=== PATIENT | male | born 1975 | race Caucasian/White ===

== ENCOUNTER → 2018-05-27 17:00 | Outpatient (CLI) | payer OTHER, SELFPAY ==
[2018-05-27 18:29] LABS: Add Manual Diff / Slide Review NO; Basophils Percent Auto 0.7 % (0-2); Eosinophils Percent Auto 10.6 % (2-4); Hematocrit 48.9 % (41-53); Hemoglobin 16.3 g/dL (13.5-17.5); Lymphocytes Percent Auto 34.9 % (25-40); Mean Corpuscular HGB Conc 33.3 % (30-36); Mean Corpuscular Volume 90.1 fL (80-100); Monocytes Percent Auto 7.1 % (3-14); Neutrophils Absolute Auto 2900 /uL (3000-5900); Neutrophils Percent Auto 46.7 % (50-75); Platelet Count 208 X10^3/uL (150-400); Red Blood Cell Count 5.42 X10^6/uL (4.5-5.9); Red Cell Distribution Width 12.5 % (11.6-14.8); White Blood Cell Count 6.1 X10^3/uL (4.5-11.0)
[2018-05-27 18:57] LABS: Erythrocyte Sedimentation Rate 1 MM/HR (0-15)
[2018-05-27 19:16] LABS: C-Reactive Protein Quant < 0.5 mg/dL (<1.0)
== END ==
PROVIDERS: Visit Provider Allergy & Immunology
DX: T78.3XXA Angioneurotic edema, initial encounter (principal)
CPT/HCPCS: 36415; 83520; 85025; 85651; 86140; 86160; 86161

== ENCOUNTER → 2020-09-02 08:57 | Outpatient (CLI) | payer OTHER, SELFPAY ==
--- NOTE | 2020-09-02 08:58 | DI.RAD.S_ITS ---
PROCEDURE: XR WRIST LT MIN 3V INDICATIONS: L wrist pain and swelling post trauma 1 wk ago TECHNIQUE: 3 views of the wrist were acquired. COMPARISON: None. FINDINGS: Bones: Surgical hardware is seen within dorsal aspect of triquetrum, suggest clinical correlation. There is possible fracture of the hardware within the triquetrum. Radial lucency and sclerotic changes are noted within distal portion of scaphoid, a nondisplaced fracture cannot be excluded. No other fracture or dislocation. No suspicious bony lesions. Scaphoid view: No evidence of avascular necrosis is seen. Soft tissues: No suspicious soft tissue calcifications. IMPRESSION: 1. Finding is concerning for age indeterminate distal scaphoid fracture. Clinical correlation for focal pain in this region is recommended. No evidence of avascular necrosis. 2. Postsurgical changes noted involving medial and dorsal aspect of triquetrum with possible fractured hardware within triquetrum suggest clinical correlation. Dictated by: Casey Barry M.D. on 09/02/2020 at 9:26 Approved by: Casey Barry M.D. on 09/02/2020 at 9:29
== END ==
PROVIDERS: Referring Provider Nurse Practitioner; Visit Provider Nurse Practitioner
DX: M25.532 Pain in left wrist (principal)
CPT/HCPCS: 73110

== ENCOUNTER → 2020-09-08 17:47 | Outpatient (CLI) | payer OTHER, SELFPAY ==
--- NOTE | 2020-09-08 17:49 | DI.MRI.S_ITS ---
PROCEDURE: MR WRIST LT WO CON INDICATIONS: INJURIES OF LEFT WRIST AND HAND TECHNIQUE: Noncontrast coronal proton density fast spin echo and T2 fast spin echo with fat saturation; coronal STIR, coronal 3-D gradient echo, axial T1 spin echo and T2 fast spin echo with fat saturation, sagittal T1 spin echo through the wrist. COMPARISON: [facility], CR, XR WRIST LT MIN 3V, 09/02/2020, 10:00. FINDINGS: Image quality: Excellent. Bones and cartilage: Postsurgical changes are seen at the dorsal triquetrum with associated metallic artifact that compromises evaluation of adjacent structures. No acute trabecular bone injury is seen. Degenerative cystic changes are seen throughout the carpal bones involving the scaphoid, lunate, capitarte, and trapezoid bones. There are subchondral cystic changes in the distal ulna with mild subchondral edema. Mild degenerative changes are seen at the distal radioulnar joint. Neutral ulnar variance is seen. Small joint effusions are seen throughout the wrist that are more prominent within the midcarpal and distal radioulnar joints. Carpal ligaments: The scapholunate and lunotriquetral ligaments appear intact. In the absence of intra-articular contrast, the extrinsic carpal ligaments are not well identified. Triangular fibrocartilage complex: There is a large defect in the central triangle fibrocartilage disc. The dorsal and volar radioulnar ligaments remain in continuity. Mildly increased signal is seen at the ulnar foveal attachment of the triangular fibrocartilage without a discrete tear in that location. Tendons and soft tissues: The carpal tunnel structures appear normal, including the median nerve. The ulnar nerve appears normal within Guyon's canal. There is mild extensor carpi ulnaris tendinosis. The distal portion of the tendon is obscured by adjacent metallic artifact. There is also mild tendinosis of the extensor pollicis brevis and abductor pollicis longus tendons in the 1st extensor compartment. A small amount of fluid is seen extending along the extensor tendon sheaths in the 2nd, 3rd, and 4th extensor compartments, which may indicate mild tenosynovitis. A small ganglion cyst is seen at the radial volar aspect of the wrist measuring 8 x 2 x 7 mm. IMPRESSION: 1. Large defect of the central triangular fibrocartilage disc. The dorsal and volar radioulnar ligaments are intact. 2. Subchondral cystic changes and edema in the distal radius may be related to degenerative changes and/or a prior impaction injury. Distal radioulnar joint degenerative changes and a small distal radioulnar joint effusion are noted. 3. Mild tenosynovitis is seen involving the 2nd, 3rd, and 4th extensor compartment tendons at the level of the distal carpal row. There is mild tendinosis of the extensor carpi ulnaris tendon and the extensor pollicis brevis and abductor pollicis longus tendons. 4. Postsurgical changes at the dorsal triquetrum with metallic artifact that obscures adjacent structures. No acute trabecular bone injury. Dictated by: Joe Cote M.D. on 09/09/2020 at 9:08 Approved by: Joe Cote M.D. on 09/09/2020 at 9:09
== END ==
PROVIDERS: Referring Provider Orthopaedic Surgery; Visit Provider Orthopaedic Surgery
DX: S69.82XA Other specified injuries of left wrist, hand and finger(s), initial encounter (principal); M65.832 Other synovitis and tenosynovitis, left forearm; M25.432 Effusion, left wrist; X58.XXXA Exposure to other specified factors, initial encounter
CPT/HCPCS: 73221

== ENCOUNTER → 2021-07-12 08:42 | Outpatient (CLI) | payer OTHER, SELFPAY ==
[2021-07-12 09:09] LABS: COVID19 -Nasal RAPID Negative (Negative)
== END ==
PROVIDERS: Visit Provider Physician Assistant
DX: R50.9 Fever, unspecified (principal)
CPT/HCPCS: 87635

== ENCOUNTER → 2021-07-12 09:08 | Outpatient (CLI) | payer OTHER, SELFPAY ==
--- NOTE | 2021-07-12 09:10 | DI.RAD.S_ITS ---
PROCEDURE: XR WRIST LT MIN 3V INDICATIONS: r/o osteomyelitis, hx of surgery 2mo ago, recent infection TECHNIQUE: 3 views of the wrist were acquired. COMPARISON: [facility], CR, XR WRIST LT MIN 3V, 09/02/2020, 10:00. FINDINGS: Bones: No fractures or dislocations. Suture anchor in the triquetrum is stable. Postsurgical changes compatible with distal left ulnar osteotomy. No osseous erosive changes. No periosteal reaction. No suspicious bony lesions. Soft tissues: No suspicious soft tissue calcifications. IMPRESSION: No fabiana evidence of osteomyelitis. Plain film radiographs can be insensitive to osteomyelitis during the initial 15 days of the disease process. If there is clinical concern for osteomyelitis, then three-phase nuclear medicine bone scan or MRI should be considered for further evaluation. Dictated by: Mary Aragon MD, PhD on 07/12/2021 at 9:24 Approved by: Mary Aragon MD, PhD on 07/12/2021 at 9:28
== END ==
PROVIDERS: Referring Provider Physician Assistant; Visit Provider Physician Assistant
DX: M25.532 Pain in left wrist (principal); R50.9 Fever, unspecified
CPT/HCPCS: 73110; 87635

== ENCOUNTER → 2021-07-13 15:56 | Outpatient (CLI) | payer OTHER, SELFPAY ==
[2021-07-13 18:05] LABS: Add Manual Diff / Slide Review NO; Basophils Absolute Auto 0 /uL (0-100); Basophils Percent Auto 0.4 % (0-2); Eosinophils Absolute Auto 700 /uL (0-450); Eosinophils Percent Auto 10.7 % (2-4); Hematocrit 46.6 % (41-53); Hemoglobin 15.8 g/dL (13.5-17.5); Lymphocytes Absolute Auto 700 /uL (1100-4500); Lymphocytes Percent Auto 10.5 % (25-40); Mean Corpuscular HGB Conc 33.8 % (30-36); Mean Corpuscular Hemoglobin 29.8 PG (26-34); Mean Corpuscular Volume 88.2 fL (80-100); Monocytes Absolute Auto 500 /uL (0-900); Monocytes Percent Auto 7.2 % (3-14); Neutrophils Absolute Auto 4900 /uL (1500-7000); Neutrophils Percent Auto 71.2 % (50-75); Platelet Count 189 X10^3/uL (150-400); Red Blood Cell Count 5.28 X10^6/uL (4.5-5.9); Red Cell Distribution Width 12.8 % (11.6-14.8); White Blood Cell Count 6.9 X10^3/uL (4.5-11.0)
[2021-07-13 18:44] LABS: C-Reactive Protein Quant 1.8 mg/dL (<1.0)
[2021-07-13 19:44] LABS: Erythrocyte Sedimentation Rate 7 MM/HR (0-15)
== END ==
PROVIDERS: Referring Provider Orthopaedic Surgery Hand Surgery; Visit Provider Orthopaedic Surgery Hand Surgery
DX: L08.9 Local infection of the skin and subcutaneous tissue, unspecified (principal); M19.239 Secondary osteoarthritis, unspecified wrist
CPT/HCPCS: 36415; 85025; 85651; 86140

== ENCOUNTER 2024-01-10 07:30 | Outpatient (RCR) | payer OTHER, SELFPAY ==
--- NOTE | 2023-09-27 19:01 | PT.OIE ---
Current Diagnoses Pain in right shoulder (09/27/23) Other specified joint disorders, right shoulder (09/27/23) Past Medical History (Last Reviewed 07/12/21 @ 09:45 by Yana Campo PA-C) No significant medical problems Visit Care Team Role Provider Type Doctor MD Bita Family Provider Non-Staff Specialty: Medical Address: Phone: Fax: Email: [place] DO Attending Provider Non-Staff Primary Care Provider Referring Provider Specialty: Family Practice Address: [facility], [facility], [place], [address] Email: Physical Therapy Initial Evaluation PT-OP-A Visit Information Start: 09/26/23 16:19 Freq: Status: Active Protocol: Document 09/27/23 07:29 NM (Rec: 09/27/23 18:19 NM [id number]) Out-Patient Physical Therapy Visit Information Visit Information Visit Type Initial Evaluation Visit Start Time 07:30 Visit Stop Time 08:15 Visit Number 1 Evaluation Information Evaluation Date 09/27/23 PT-OP-B Current Condition Start: 09/26/23 16:19 Freq: Status: Active Protocol: Document 09/27/23 07:29 NM (Rec: 09/27/23 08:17 NM [id number]) Current Condition History of Current Condition Onset Date 3-4 months ago Current Complaints pain with throwing, resting pain History of Current Condition Pt presents with R shoulder pain beginning without known NOE several months ago. He currently had dx of impingement, likely from overuse. Recently received cortisone injection 3 weeks ago and is on anti- inflammatories, which helps. 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 Reports pain is most noticeable when lifting, driving. Has hx of R rotator cuff repair 20 years ago; states this feels the same. No MRI, but did an x-ray without conclusive results. Trying conservative treatment. Pt lifts weights every day but has decreased (previously power lifting, body weight lifting). Hx of ache, sharp pain (wide fuel cell binder), overhead reaching (worse if loaded), sleeping when across chest; reports no changes in mobility and minimal changes in strength. Worse with throwing, overhead pushing (pull ups are ok). 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) Functional Limitations- Recreation/ limitations in throwing, Hobbies lifting weights, exercising; no mountain biking due to pain Functional Limitations- Other pain with sleeping PT-OP-C Subjective Start: 09/26/23 16:19 Freq: Status: Active Protocol: Document 09/27/23 07:29 NM (Rec: 09/27/23 08:17 NM [id number]) OP-PT Subjective Patient Comments Patient Comments see hx above for pt report Patient Questionnaires Quick Dash- Upper Extremity Quick Dash UE Score 18.18% OP-PT Pain Assessment Pain Assessment Grid Paper Pain Assessment Grid Completed Yes Location R shoulder Pain Location Details posterior shoulder, anterior near coracoid/biceps Intensity 1 Scale Used Numeric (0 - 10) Description Aching,Sharp Description- Other worse 7/10 Frequency Occasional Pain Duration during activity (sharp) Radiating Location none Pain Aggravating Factors Exercise,Lifting Other Pain Aggravating Factors throwing, push ups Pain Alleviating Factors Cold,Medication Other Pain Alleviating Factors cortisone shot, anti- flammatories Home Pain Medication Use Pain Medications Used Yes: ibuprofen Pain Behaviors Pain Behaviors Guarding,Holding Area PT-OP-E Functional Tests Start: 09/26/23 16:19 Freq: Status: Active Protocol: Document 09/27/23 07:29 NM (Rec: 09/27/23 08:17 NM [id number]) Functional Tests Apley's Scratch Test Action 1- Left post cuff Action 1- Right post cuff, min discomfort Action 2- Left T5 Action 2- Right T4, min discomfort (1/10) Action 3- Left T7 Action 3- Right T12 (most provocative, 3/10) PT-OP-F Manual Assessment Start: 09/26/23 16:19 Freq: Status: Active Protocol: Document 09/27/23 07:29 NM (Rec: 09/27/23 18:19 NM [id number]) Manual Assessments Soft Tissue Assessment Soft Tissue Mobility Assessment Increased tone of R upper trapezius, levator scapula, R cervical spine paraspinals. Restrictions of posterior cuff muscles, pectorals Joint Mobility Assessment Joint Mobility Assessment Anterior position R humeral head. Full bilateral shoulder AROM into flexion and abduction, IR. Limited shoulder ER AROM, flora with increased abduction. B scapulae 2 from spine. Delayed R scapulohumeral rhythm with arm elevation. Decreased R AC joint space, elevated R 1st rib PT-OP-H Neuro Start: 09/26/23 16:19 Freq: Status: Active Protocol: Document 09/27/23 07:29 NM (Rec: 09/27/23 18:19 NM [id number]) Sensation Evaluation Gross Sensation Gross Sensation WNL Comments Summary Comments BUE equally intact to light touch sensation PT-OP-J Posture/Palpation/Skin Start: 09/26/23 16:19 Freq: Status: Active Protocol: Document 09/27/23 07:29 NM (Rec: 09/27/23 18:19 NM [id number]) Posture Evaluation Position Standing Evaluation View posterior, lateral Head/C-Spine Posture Forward Head T-Spine Posture Neutral L-Spine Posture Decreased Lordosis Shoulder Posture (L) Rounded,(R) Rounded Scapula Posture (L) Protracted,(R) Protracted, (R) Elevated Arm Posture (L) Internally Rotated,(R) Internally Rotated Pelvis Posture Neutral Weight Distribution Balanced Hip Posture (L) Neutral,(R) Neutral Knee Posture (L) Genu Valgus,(R) Genu Valgus Patellar Posture (L) Superior,(R) Superior Ankle/Foot Posture (L) Neutral,(R) Neutral Palpation Assessment Location cervical spine Palpation Location paraspinals, upper trap, levator scapula Palpation Findings Soft Tissue Tightness,Spasm Palpation Details Spasm R upper trapezius, levator scapula, paraspinals R shoulder Palpation Location long head biceps, rotator cuff insertion, posterior cuff, pectoral Palpation Findings Soft Tissue Tightness, Tenderness Palpation Details Tenderness along long head biceps, rotator cuff insertion . Soft tissue tightness of rotator cuff muscles, pectorals PT-OP-K Range of Motion Start: 09/26/23 16:19 Freq: Status: Active Protocol: Document 09/27/23 07:29 NM (Rec: 09/27/23 08:17 NM [id number]) Cervical Spine Range of Motion Cervical Spine Active Degrees Testing Position Sitting Flexion 65 Extension 45 Rotation Left 80 Rotation Right 83 Lateral Flexion Left 30 Lateral Flexion Right 30 ROM Limitations Soft Tissue Tightness Comments Crepitus with lateral flexion, extension; no pain Shoulder Goniometric Range of Motion Shoulder R shoulder PROM Flexion 175 Abduction 175 External Rotation at 90 degrees 70 Abduction External Rotation at 45 degrees 65 Abduction Internal Rotation 80 Comments Min discomfort with end range ER L shoulder AROM Testing Position Sitting Flexion 165 Abduction 170 External Rotation at 90 degrees 60 Abduction External Rotation at 45 degrees 50 Abduction External Rotation at 0 degrees Abduction 40 Internal Rotation 80 R shoulder AROM Testing Position Sitting Flexion 170 Abduction 172 External Rotation at 90 degrees 70 Abduction External Rotation at 45 degrees 60 Abduction External Rotation at 0 degrees Abduction 40 Internal Rotation 80 Comments pain with 45 deg abd (08/21) PT-OP-L Special Tests Start: 09/26/23 16:19 Freq: Status: Active Protocol: Document 09/27/23 07:29 NM (Rec: 09/27/23 08:17 NM [id number]) Special Tests Cervical Spine Special Tests Distraction Test Results - Spurling's Test Test Results - Shoulder Special Tests IR/Horizontal ADD Impingement Test Results + Yergason's Biceps Test Results + Comments painful, no loss of strength Speed's Biceps Test Results + Whitt Tho Impingement Test Results + Lift-Off Rotator Cuff Test Results + Comments painful, able to perform with AROM and against minimal resistance ER lag (rotator cuff) Test Results - Empty Can Test Results + Comments Min pain but reports full can worse PT-OP-M Strength Start: 09/26/23 16:19 Freq: Status: Active Protocol: Document 09/27/23 07:29 NM (Rec: 09/27/23 08:17 NM [id number]) Scapula Strength Scapula Manual Muscle Testing Left Elevation (C4) 4+ Good+ Adduction 4+ Good+ Abduction 4+ Good+ Depression 4+ Good+ Right Elevation (C4) 4 Good Adduction 4 Good Abduction 4 Good Depression 4 Good Comments Minimal pain with resisted testing; no limits ROM Shoulder Strength Shoulder Manual Muscle Testing Left shoulder Flexion 5 Normal Extension 5 Normal Abduction (C5) 5 Normal Adduction 5 Normal External Rotation 5 Normal Internal Rotation 5 Normal Horizontal Abduction 5 Normal Horizontal Adduction 5 Normal Right shoulder Flexion 4 Good Extension 5 Normal Abduction (C5) 4+ Good+ External Rotation 4 Good Internal Rotation 4 Good Horizontal Abduction 4 Good Horizontal Adduction 4 Good Comments Moderate pain with resisted ER ; minimal pain with resisted flexion, IR, abduction Elbow/Forearm Strength Elbow and Forearm Manual Muscle Testing Left Flexion (C6) 5 Normal Extension (C7) 5 Normal Right Flexion (C6) 5 Normal Extension (C7) 5 Normal Comments No pain with resisted flexion PT-OP-T Assessment and Plan Start: 09/26/23 16:19 Freq: Status: Active Protocol: Document 09/27/23 07:29 NM (Rec: 09/27/23 08:17 NM [id number]) Physical Therapy Assessment Rehab Potential Rehabilitation Potential Good Evaluation Complexity Number of Personal Factors/Comorbidities 0 Number of Body Systems Impaired 1-2 Clinical Presentation at Evaluation Stable Impairments Impairments Activity Tolerance, Coordination,Functional Activities,Functional Mobility ,Integument,Pain,Posture,ROM, Sensation,Soft Tissue Mobility ,Strength Goals Five Impairment activity Short Term Goal (STG) Pt will report at least 30% return to prior level of activity in order to demonstrate improved QOL, activity tolerance, and pain management STG Duration 4 weeks Personal Lines Insurance Advisor Goal (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 LTG Duration 8 weeks Four Impairment strength Impairment R shoulder strength grossly 4/ 5 for ER, IR, and flexion Fdc Goal (LTG) Pt will improve R shoulder gross MMT to at least 4+/5 with pain <2/10 in order to demonstrate improved tolerance for activity, ADLs. LTG Duration 8 weeks Three Impairment periscapular strength Impairment grossly 4/5 Fdc Goal (LTG) Pt will improve periscapular strength to at least 4+/5 without compensation in order to demonstrate increased scapular control during arm elevation LTG Duration 8 weeks Two Impairment AROM Impairment Apley IR scratch test: T12 Short Term Goal (STG) Pt will improve R Apley IR scratch test AROM to at least T10 in order to demonstrate improved AROM for ADLs. STG Duration 4 weeks Personal Lines Insurance Advisor Goal (LTG) Pt will improve R Apley IR scratch test AROM to at least T8 in order to demonstrate improved AROM for ADLs, comparable to L Apley. LTG Duration 8 weeks One Impairment quickdash Impairment quickdash 18% Personal Lines Insurance Advisor Goal (LTG) Pt will decrease quickdash score by at least 9% in order to demonstrate improved function and QOL LTG Duration 8 weeks Assessment Summary Assessment Pt is a 48 y.o. male presenting with R shoulder pain beginning several months ago. Pain is worse at night, with activity (e.g. lifting, throwing). He has had significant relief after the cortisone injection. Pt has full R shoulder flexion and abduction AROM with limitations in ER AROM and PROM. Resisted R shoulder ER, flexion, abduction, and IR are painful, with resisted ER the most painful. Pt presents with forward head posture, increased tone in R cervical spine paraspinals, periscapular muscles, and pectoral muscles. He has full cervical spine with minor limitations in extension AROM with crepitus. He has decreased joint space of the R AC joint, in addition to delayed scapular movement during arm elevation. Pt is positive for special tests related to biceps tendinopathy , rotator cuff, and AC joint. Symptoms are consistent with rotator cuff pathology with involvement of long head biceps tendon and possibly the labrum. Impingement is less likely due to full AROM. Pt is currently limited in his ability to participate in recreational activities due to pain and must modify his activity at work. He has a very active job and lifestyle. He is wanting to try conservative treatment prior to referral. PT and pt discussed exam findings and plan of care. Pt would benefit from skilled PT to decrease pain symptoms, decrease soft tissue restrictions, and improve activity tolerance. Physical Therapy Plan Frequency and Duration Frequency of Treatment 2x/Week Duration of treatment (weeks) 8 Plan of Care Start Date 09/27/23 Plan of Care End Date 11/22/23 Therapeutic Interventions Therapeutic Interventions Aquatic Therapy,Coordination Training,Home Exercise Program ,Joint Mobilizations,Manual Therapy,Neuromuscular Re- education,Orthotic/Prosthetic Management,Patient/Caregiver Education,Self-Care/Home Management,Sensory Integration ,Soft Tissue Mobilization, Taping,Therapeutic Activities, Therapeutic Exercises Modalities Cold Pack/Ice Massage,Electric Stimulation,Hot Packs, Traction- Mechanical, Ultrasound,Vasopneumatic Devices Other Referrals/Consults Referrals/Consults Recommended Recommend MRI and referral to ortho depending on pt progression with conservative treatment Next Visit Focus/Plan Next Note Type Treatment Note Next Visit Plan Modalities Cervical spine STM, stretching ; prone ITYW as tolerated, shoulder STM. pec stretch
--- NOTE | 2023-09-30 16:05 | PT.OTN ---
Current Diagnoses Pain in right shoulder (09/30/23) Other specified joint disorders, right shoulder (09/30/23) Physical Therapy Treatment Note PT-OP-A Visit Information Start: 09/26/23 16:19 Freq: Status: Active Protocol: Document 09/30/23 07:25 NM (Rec: 09/30/23 07:27 NM [id number]) Out-Patient Physical Therapy Visit Information Visit Information Visit Type Treatment Note Visit Start Time 07:30 Visit Stop Time 08:15 Visit Number 2 Evaluation Information Evaluation Date 09/27/23 PT-OP-B Current Condition Start: 09/26/23 16:19 Freq: Status: Active Protocol: Document 09/27/23 07:29 NM (Rec: 09/27/23 08:17 NM [id number]) Current Condition History of Current Condition Onset Date 3-4 months ago Current Complaints pain with throwing, resting pain History of Current Condition Pt presents with R shoulder pain beginning without known NOE several months ago. He currently had dx of impingement, likely from overuse. Recently received cortisone injection 3 weeks ago and is on anti- inflammatories, which helps. 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 Reports pain is most noticeable when lifting, driving. Has hx of R rotator cuff repair 20 years ago; states this feels the same. No MRI, but did an x-ray without conclusive results. Trying conservative treatment. Pt lifts weights every day but has decreased (previously power lifting, body weight lifting). 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 Worse with throwing, overhead pushing (pull ups are ok). 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 He has been using his shoulder a lot due to moving in/out of a house. He has been doing a lot of painting, which involves overhead activity and has been aggravating. PT-OP-E Functional Tests Start: 09/26/23 16:19 Freq: Status: Active Protocol: Document 09/27/23 07:29 NM (Rec: 09/27/23 08:17 NM [id number]) Functional Tests Apley's Scratch Test Action 1- Left post cuff Action 1- Right post cuff, min discomfort Action 2- Left T5 Action 2- Right T4, min discomfort (08/21) Action 3- Left T7 Action 3- Right T12 (most provocative, 10/19) PT-OP-F Manual Assessment Start: 09/26/23 16:19 Freq: Status: Active Protocol: Document 09/27/23 07:29 NM (Rec: 09/27/23 18:19 NM [id number]) Manual Assessments Soft Tissue Assessment Soft Tissue Mobility Assessment Increased tone of R upper trapezius, levator scapula, R cervical spine paraspinals. Restrictions of posterior cuff muscles, pectorals Joint Mobility Assessment Joint Mobility Assessment Anterior position R humeral head. Full bilateral shoulder AROM into flexion and abduction, IR. Limited shoulder ER AROM, flora with increased abduction. B scapulae 2 from spine. Delayed R scapulohumeral rhythm with arm elevation. Decreased R AC joint space, elevated R 1st rib PT-OP-H Neuro Start: 09/26/23 16:19 Freq: Status: Active Protocol: Document 09/27/23 07:29 NM (Rec: 09/27/23 18:19 NM [id number]) Sensation Evaluation Gross Sensation Gross Sensation WNL Comments Summary Comments BUE equally intact to light touch sensation PT-OP-J Posture/Palpation/Skin Start: 09/26/23 16:19 Freq: Status: Active Protocol: Document 09/27/23 07:29 NM (Rec: 09/27/23 18:19 NM [id number]) Posture Evaluation Position Standing Evaluation View posterior, lateral Head/C-Spine Posture Forward Head T-Spine Posture Neutral L-Spine Posture Decreased Lordosis Shoulder Posture (L) Rounded,(R) Rounded Scapula Posture (L) Protracted,(R) Protracted, (R) Elevated Arm Posture (L) Internally Rotated,(R) Internally Rotated Pelvis Posture Neutral Weight Distribution Balanced Hip Posture (L) Neutral,(R) Neutral Knee Posture (L) Genu Valgus,(R) Genu Valgus Patellar Posture (L) Superior,(R) Superior Ankle/Foot Posture (L) Neutral,(R) Neutral Palpation Assessment Location cervical spine Palpation Location paraspinals, upper trap, levator scapula Palpation Findings Soft Tissue Tightness,Spasm Palpation Details Spasm R upper trapezius, levator scapula, paraspinals R shoulder Palpation Location long head biceps, rotator cuff insertion, posterior cuff, pectoral Palpation Findings Soft Tissue Tightness, Tenderness Palpation Details Tenderness along long head biceps, rotator cuff insertion . Soft tissue tightness of rotator cuff muscles, pectorals PT-OP-K Range of Motion Start: 09/26/23 16:19 Freq: Status: Active Protocol: Document 09/27/23 07:29 NM (Rec: 09/27/23 08:17 NM [id number]) Cervical Spine Range of Motion Cervical Spine Active Degrees Testing Position Sitting Flexion 65 Extension 45 Rotation Left 80 Rotation Right 83 Lateral Flexion Left 30 Lateral Flexion Right 30 ROM Limitations Soft Tissue Tightness Comments Crepitus with lateral flexion, extension; no pain Shoulder Goniometric Range of Motion Shoulder R shoulder PROM Flexion 175 Abduction 175 External Rotation at 90 degrees 70 Abduction External Rotation at 45 degrees 65 Abduction Internal Rotation 80 Comments Min discomfort with end range ER L shoulder AROM Testing Position Sitting Flexion 165 Abduction 170 External Rotation at 90 degrees 60 Abduction External Rotation at 45 degrees 50 Abduction External Rotation at 0 degrees Abduction 40 Internal Rotation 80 R shoulder AROM Testing Position Sitting Flexion 170 Abduction 172 External Rotation at 90 degrees 70 Abduction External Rotation at 45 degrees 60 Abduction External Rotation at 0 degrees Abduction 40 Internal Rotation 80 Comments pain with 45 deg abd (08/21) PT-OP-L Special Tests Start: 09/26/23 16:19 Freq: Status: Active Protocol: Document 09/27/23 07:29 NM (Rec: 09/27/23 08:17 NM [id number]) Special Tests Cervical Spine Special Tests Distraction Test Results - Spurling's Test Test Results - Shoulder Special Tests IR/Horizontal ADD Impingement Test Results + Yergason's Biceps Test Results + Comments painful, no loss of strength Speed's Biceps Test Results + Whitt Tho Impingement Test Results + Lift-Off Rotator Cuff Test Results + Comments painful, able to perform with AROM and against minimal resistance ER lag (rotator cuff) Test Results - Empty Can Test Results + Comments Min pain but reports full can worse PT-OP-M Strength Start: 09/26/23 16:19 Freq: Status: Active Protocol: Document 09/27/23 07:29 NM (Rec: 09/27/23 08:17 NM [id number]) Scapula Strength Scapula Manual Muscle Testing Left Elevation (C4) 4+ Good+ Adduction 4+ Good+ Abduction 4+ Good+ Depression 4+ Good+ Right Elevation (C4) 4 Good Adduction 4 Good Abduction 4 Good Depression 4 Good Comments Minimal pain with resisted testing; no limits ROM Shoulder Strength Shoulder Manual Muscle Testing Left shoulder Flexion 5 Normal Extension 5 Normal Abduction (C5) 5 Normal Adduction 5 Normal External Rotation 5 Normal Internal Rotation 5 Normal Horizontal Abduction 5 Normal Horizontal Adduction 5 Normal Right shoulder Flexion 4 Good Extension 5 Normal Abduction (C5) 4+ Good+ External Rotation 4 Good Internal Rotation 4 Good Horizontal Abduction 4 Good Horizontal Adduction 4 Good Comments Moderate pain with resisted ER ; minimal pain with resisted flexion, IR, abduction Elbow/Forearm Strength Elbow and Forearm Manual Muscle Testing Left Flexion (C6) 5 Normal Extension (C7) 5 Normal Right Flexion (C6) 5 Normal Extension (C7) 5 Normal Comments No pain with resisted flexion PT-OP-Q Treatments Start: 09/26/23 16:19 Freq: Status: Active Protocol: Document 09/30/23 07:25 NM (Rec: 09/30/23 07:27 NM [id number]) Therapeutic Exercises Supine Exercises pectoralis stretch Supine Exercise Name arm at 120 deg flex Side bilateral Equipment Used foam roller, mat on ground Reps/Minutes 1x60 Comments to improve pec length; reports good stretch thoracic extension Side bilateral Resistance AROM Equipment Used mat on floor, full foam roller Reps/Minutes 1x10 with overhead fwd flexion Prone Exercises Prone T, W Prone Exercise Name for periscapular strengthening Side bilateral Resistance AROM Equipment Used large green surinamese ball Reps/Minutes 2x10 ea Comments tactile cues initially for scap retraction; reports no pain w activity Y lift off Prone Exercise Name for lower trap activation Side bilateral Resistance AROM Equipment Used large green surinamese ball Reps/Minutes 2x10 Comments cued to depress scaps twd feet to limit UT overact; PT manual cue at R shld Sidelying Exercises sidelying shoulder external rotation Side right Resistance AROM > 2# tball Equipment Used towel btwn arm/body Reps/Minutes 1x10 ea Comments reports some LH bicep irritation so discontinued with 2# tball sidelying flexion Sidelying Exercise Name to 90 deg Side right Equipment Used AROM Reps/Minutes 1x10 Comments PT facilitating at scap for control; cued for slower motion, no UT use Sitting Exercises cervical spine stretches Sitting Exercise Name UT, LS Side bilateral Equipment Used pt holding table to tension, no overpressure with hand for UT Reps/Minutes 2x30 Comments reports good stretch, muscles tight Other Exercises self soft tissue mobilization Other Exercise Name UT, LS, rotator cuff Side right Equipment Used racquetball Reps/Minutes 2 min total Comments reports feels good Manual Therapy Treatment Soft Tissue Mobilization chest Body Location R pectorals, scalenes Mobilization Type Rolling,Sustained Pressure Intensity/Depth Moderate Body Position Sidelying Comments R pectoral tightness along coracoid and at insertion of humerus, performing with posterior scap setting. No tenderness cervical spine Body Location paraspinals, UT, LS Mobilization Type Oscillations,Rolling,Sustained Pressure,Trigger Point Release Intensity/Depth Moderate Body Position Hooklying Comments R>L paraspinal muscle restriction. Most restricted at UT and LS, trigger point at LS. Performed gentle trigger point release. Pt reports improvement in muslce relaxation after STM. Educated on STM using lacrosse ball, massage gun as HEP prn Joint Mobilizations scapulothoracic Direction upwd/dwd rotation Grade II Body Position Sidelying Reps/Duration 1x10 ea Comments During sidelying flexion, MWM. PT facilitating at scapula for control, cued to limit R AC joint Direction post on scapular spine, ant on clavicle Grade III Body Position Sidelying Reps/Duration 1x10 ea Comments To increase joint space, pain reduction for improved overhead mobility. Monitored for pain, none reported 1st rib Joint R 1st rib Direction caudal Grade III Body Position Sidelying Reps/Duration 1x10 Comments After upper trap STM Self-Care/Home Management Treatment Education Patient Education Home Exercise Program,Joint Protection,Pain Management Other Education 4 minutes: Educated related to activity modification regarding decrease overhead movements, limit throwing with R arm. Modalities for pain relief prn flora after home modifications, heat with soft tissue mobilization. Instructed in soft tissue mobilization at chest, R shoulder, paraspinals using both lacrosse ball and massage gun (edu on gentle massage, should not be painful). HEP: prone Y, T, W, thoracic ext with foam roller, pec stretch, upper trap stretch, levator scap stretch. Educated that should not be painful, gentle stretches, stop if pain occurs (did not have any during session) PT-OP-T Assessment and Plan Start: 09/26/23 16:19 Freq: Status: Active Protocol: Document 09/30/23 07:25 NM (Rec: 09/30/23 07:27 NM [id number]) Physical Therapy Assessment Goals Five Impairment activity Short Term Goal (STG) Pt will report at least 30% return to prior level of activity in order to demonstrate improved QOL, activity tolerance, and pain management STG Duration 4 weeks [facility] Goal (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 LTG Duration 8 weeks Four Impairment strength Impairment R shoulder strength grossly 4/ 5 for ER, IR, and flexion [facility] Goal (LTG) Pt will improve R shoulder gross MMT to at least 4+/5 with pain <2/10 in order to demonstrate improved tolerance for activity, ADLs. 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 STG Duration 4 weeks [facility] Goal (LTG) Pt will improve R Apley IR scratch test AROM to at least T8 in order to demonstrate improved AROM for ADLs, comparable to L Apley. LTG Duration 8 weeks One Impairment quickdash Impairment quickdash 18% Real Estate Branch Manager Goal (LTG) Pt will decrease quickdash score by at least 9% in order to demonstrate improved function and QOL LTG Duration 8 weeks Assessment Summary Assessment Pt tolerated treatment well. Session focus on scapular mechanics, improved periscapular strengthening, and improving soft tissue restrictions of chest and cervical spine muscles. Initiated prone periscapular strengthening to decrease upper trapezius use during arm elevation, encourage lower and middle trapezius activation in addition to improved scapular movement. Pt demos improved scapular rotation, better timing of scapulo-humeral rhythm with sidelying flexion if cued for slower form and to depress scapula; PT facilitating at scapula to cue for control. Pt has increased cervical spine paraspinal soft tissue restrictions; responds well to both stretching, soft tissue mobilization and education as part of HEP. Initiated thoracic extension and pec stretching to decrease anterior humeral position, decreased forward shoulder posture. Further manual treatment to improve 1st rib mobility and AC joint space during elevation, decrease any impingement symptoms. Pt reports no symptom provocation except during weighted sidelying shoulder ER with 2# ball, so regressed to AROM. Pt would benefit from skilled PT for periscapular, gentle rotator cuff strengthening, and activity modification in order to improve pain management, increase QOL and return to PLOF. Physical Therapy Plan Frequency and Duration Frequency of Treatment 2x/Week Duration of treatment (weeks) 8 Plan of Care Start Date 09/27/23 Plan of Care End Date 11/22/23 Therapeutic Interventions Therapeutic Interventions Aquatic Therapy,Coordination Training,Home Exercise Program ,Joint Mobilizations,Manual Therapy,Neuromuscular Re- education,Orthotic/Prosthetic Management,Patient/Caregiver Education,Self-Care/Home Management,Sensory Integration ,Soft Tissue Mobilization, Taping,Therapeutic Activities, Therapeutic Exercises Modalities Cold Pack/Ice Massage,Electric Stimulation,Hot Packs, Traction- Mechanical, Ultrasound,Vasopneumatic Devices Other Referrals/Consults Referrals/Consults Recommended Recommend MRI and referral to ortho depending on pt progression with conservative treatment Next Visit Focus/Plan Next Note Type Treatment Note Next Visit Plan Review Cervical spine STM, stretching as needed; Progress prone ITYW as tolerated, pec stretch, thoracic mobility and strengthening. Lower/Middle trap activationm gentle RTC strengthening as able, scapular mechanics *be aware of bicep irritation
--- NOTE | 2023-10-04 12:22 | PT.OTN ---
Current Diagnoses Pain in right shoulder (10/04/23) Other specified joint disorders, right shoulder (10/04/23) Physical Therapy Treatment Note PT-OP-A Visit Information Start: 09/26/23 16:19 Freq: Status: Active Protocol: Document 10/04/23 07:34 NM (Rec: 10/04/23 09:01 NM [id number]) Out-Patient Physical Therapy Visit Information Visit Information Visit Type Treatment Note Visit Start Time 07:35 Visit Stop Time 08:15 Visit Number 3 Evaluation Information Evaluation Date 09/27/23 PT-OP-B Current Condition Start: 09/26/23 16:19 Freq: Status: Active Protocol: Document 09/27/23 07:29 NM (Rec: 09/27/23 08:17 NM [id number]) Current Condition History of Current Condition Onset Date 3-4 months ago Current Complaints pain with throwing, resting pain History of Current Condition Pt presents with R shoulder pain beginning without known NOE several months ago. He currently had dx of impingement, likely from overuse. Recently received cortisone injection 3 weeks ago and is on anti- inflammatories, which helps. 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 Reports pain is most noticeable when lifting, driving. Has hx of R rotator cuff repair 20 years ago; states this feels the same. No MRI, but did an x-ray without conclusive results. Trying conservative treatment. Pt lifts weights every day but has decreased (previously power lifting, body weight lifting). Hx of ache, sharp pain (wide wall cleaner), overhead reaching (worse if loaded), sleeping when across chest; reports no changes in mobility and minimal changes in strength. Worse with throwing, overhead pushing (pull ups are ok). 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 Has been lifting lots of boxes due to moving so reports sore overall . Has been compliant with HEP PT-OP-E Functional Tests Start: 09/26/23 16:19 Freq: Status: Active Protocol: Document 09/27/23 07:29 NM (Rec: 09/27/23 08:17 NM [id number]) Functional Tests Apley's Scratch Test Action 1- Left post cuff Action 1- Right post cuff, min discomfort Action 2- Left T5 Action 2- Right T4, min discomfort (1/10) Action 3- Left T7 Action 3- Right T12 (most provocative, 3/10) PT-OP-F Manual Assessment Start: 09/26/23 16:19 Freq: Status: Active Protocol: Document 09/27/23 07:29 NM (Rec: 09/27/23 18:19 NM [id number]) Manual Assessments Soft Tissue Assessment Soft Tissue Mobility Assessment Increased tone of R upper trapezius, levator scapula, R cervical spine paraspinals. Restrictions of posterior cuff muscles, pectorals Joint Mobility Assessment Joint Mobility Assessment Anterior position R humeral head. Full bilateral shoulder AROM into flexion and abduction, IR. Limited shoulder ER AROM, flora with increased abduction. B scapulae 2 from spine. Delayed R scapulohumeral rhythm with arm elevation. Decreased R AC joint space, elevated R 1st rib PT-OP-H Neuro Start: 09/26/23 16:19 Freq: Status: Active Protocol: Document 09/27/23 07:29 NM (Rec: 09/27/23 18:19 NM [id number]) Sensation Evaluation Gross Sensation Gross Sensation WNL Comments Summary Comments BUE equally intact to light touch sensation PT-OP-J Posture/Palpation/Skin Start: 09/26/23 16:19 Freq: Status: Active Protocol: Document 09/27/23 07:29 NM (Rec: 09/27/23 18:19 NM [id number]) Posture Evaluation Position Standing Evaluation View posterior, lateral Head/C-Spine Posture Forward Head T-Spine Posture Neutral L-Spine Posture Decreased Lordosis Shoulder Posture (L) Rounded,(R) Rounded Scapula Posture (L) Protracted,(R) Protracted, (R) Elevated Arm Posture (L) Internally Rotated,(R) Internally Rotated Pelvis Posture Neutral Weight Distribution Balanced Hip Posture (L) Neutral,(R) Neutral Knee Posture (L) Genu Valgus,(R) Genu Valgus Patellar Posture (L) Superior,(R) Superior Ankle/Foot Posture (L) Neutral,(R) Neutral Palpation Assessment Location cervical spine Palpation Location paraspinals, upper trap, levator scapula Palpation Findings Soft Tissue Tightness,Spasm Palpation Details Spasm R upper trapezius, levator scapula, paraspinals R shoulder Palpation Location long head biceps, rotator cuff insertion, posterior cuff, pectoral Palpation Findings Soft Tissue Tightness, Tenderness Palpation Details Tenderness along long head biceps, rotator cuff insertion . Soft tissue tightness of rotator cuff muscles, pectorals PT-OP-K Range of Motion Start: 09/26/23 16:19 Freq: Status: Active Protocol: Document 09/27/23 07:29 NM (Rec: 09/27/23 08:17 NM [id number]) Cervical Spine Range of Motion Cervical Spine Active Degrees Testing Position Sitting Flexion 65 Extension 45 Rotation Left 80 Rotation Right 83 Lateral Flexion Left 30 Lateral Flexion Right 30 ROM Limitations Soft Tissue Tightness Comments Crepitus with lateral flexion, extension; no pain Shoulder Goniometric Range of Motion Shoulder R shoulder PROM Flexion 175 Abduction 175 External Rotation at 90 degrees 70 Abduction External Rotation at 45 degrees 65 Abduction Internal Rotation 80 Comments Min discomfort with end range ER L shoulder AROM Testing Position Sitting Flexion 165 Abduction 170 External Rotation at 90 degrees 60 Abduction External Rotation at 45 degrees 50 Abduction External Rotation at 0 degrees Abduction 40 Internal Rotation 80 R shoulder AROM Testing Position Sitting Flexion 170 Abduction 172 External Rotation at 90 degrees 70 Abduction External Rotation at 45 degrees 60 Abduction External Rotation at 0 degrees Abduction 40 Internal Rotation 80 Comments pain with 45 deg abd (08/21) PT-OP-L Special Tests Start: 09/26/23 16:19 Freq: Status: Active Protocol: Document 09/27/23 07:29 NM (Rec: 09/27/23 08:17 NM [id number]) Special Tests Cervical Spine Special Tests Distraction Test Results - Spurling's Test Test Results - Shoulder Special Tests IR/Horizontal ADD Impingement Test Results + Mercedes's Biceps Test Results + Comments painful, no loss of strength Speed's Biceps Test Results + Whitt Tho Impingement Test Results + Lift-Off Rotator Cuff Test Results + Comments painful, able to perform with AROM and against minimal resistance ER lag (rotator cuff) Test Results - Empty Can Test Results + Comments Min pain but reports full can worse PT-OP-M Strength Start: 09/26/23 16:19 Freq: Status: Active Protocol: Document 09/27/23 07:29 NM (Rec: 09/27/23 08:17 NM [id number]) Scapula Strength Scapula Manual Muscle Testing Left Elevation (C4) 4+ Good+ Adduction 4+ Good+ Abduction 4+ Good+ Depression 4+ Good+ Right Elevation (C4) 4 Good Adduction 4 Good Abduction 4 Good Depression 4 Good Comments Minimal pain with resisted testing; no limits ROM Shoulder Strength Shoulder Manual Muscle Testing Left shoulder Flexion 5 Normal Extension 5 Normal Abduction (C5) 5 Normal Adduction 5 Normal External Rotation 5 Normal Internal Rotation 5 Normal Horizontal Abduction 5 Normal Horizontal Adduction 5 Normal Right shoulder Flexion 4 Good Extension 5 Normal Abduction (C5) 4+ Good+ External Rotation 4 Good Internal Rotation 4 Good Horizontal Abduction 4 Good Horizontal Adduction 4 Good Comments Moderate pain with resisted ER ; minimal pain with resisted flexion, IR, abduction Elbow/Forearm Strength Elbow and Forearm Manual Muscle Testing Left Flexion (C6) 5 Normal Extension (C7) 5 Normal Right Flexion (C6) 5 Normal Extension (C7) 5 Normal Comments No pain with resisted flexion PT-OP-Q Treatments Start: 09/26/23 16:19 Freq: Status: Active Protocol: Document 10/04/23 07:34 NM (Rec: 10/04/23 09:01 NM [id number]) Therapeutic Exercises Prone Exercises quadruped Prone Exercise Name 1. quad scap protraction, 2. push up plus (full pushup) Side bilateral Equipment Used mat on floor, PT prn tactile cue for protraction Reps/Minutes 1. 2x10, 2. 2x8 w protract Comments cued full protaction; reports no pain shldr, close wall cleaner thoracic extension Prone Exercise Name with green SB rollout > lat stretch with TS ext Side bilateral Equipment Used large green sb- cued not to go to end range Reps/Minutes 1x10 with 3 hold Comments improved extension with repetitions, reports min ant shldr pain end range Prone T, W Prone Exercise Name for periscapular strengthening Side bilateral Resistance 1# db ea hand > 2# db 2nd set W Equipment Used large green djiboutian ball Reps/Minutes 2x10 ea Comments tactile cues initially for scap retraction; reports no pain w activity Y lift off Prone Exercise Name for lower trap activation Side bilateral Resistance AROM Equipment Used large green djiboutian ball Reps/Minutes 2x12 Comments cued to depress scaps twd feet to limit UT overact; PT cue at R shldr relax Sidelying Exercises sidelying abduction Sidelying Exercise Name to 90 deg Side right Resistance AROM > 1# db Reps/Minutes 2x10 Comments PT initially facilitate at scap for control, cued slower, relax shldr sidelying shoulder external rotation Side right Resistance AROM > 1# > 2# db Equipment Used towel btwn arm/body Reps/Minutes 1x10 ea Comments reports no irritation at ant shldr, cued UT relaxation sidelying flexion Sidelying Exercise Name to 120 deg Side right Equipment Used AROM> 1# db Reps/Minutes 1x10 ea Comments PT facilitating at scap for control; cued for slower motion, no UT use Sitting Exercises cervical spine stretches Sitting Exercise Name UT, LS Side bilateral Equipment Used pt holding table to tension, no overpressure with hand for UT Reps/Minutes 2x30 Comments reports good stretch,still tight, improved ROM Manual Therapy Treatment Soft Tissue Mobilization posterior trunk Body Location lat, RTC Mobilization Type Strumming,Sustained Pressure Intensity/Depth Moderate Body Position Sidelying Comments Min tenderness of R lat, teres muscles of RTC. Palpable relaxation with STM chest Body Location R pectorals Mobilization Type Rolling,Sustained Pressure Intensity/Depth Moderate Body Position Sidelying Comments R pectoral tightness along coracoid and at insertion of humerus, performing with posterior scap setting. No tenderness reported, increased relaxation with STM cervical spine Body Location paraspinals, UT Mobilization Type Oscillations,Rolling,Sustained Pressure Intensity/Depth Moderate Body Position Sidelying Comments Continues with increased restriction at R UT and paraspinals but improved. No trigger point but still restricted, limits ROM at shoulder Joint Mobilizations R Glenohumeral Joint jt at 45-70 deg abd Direction P-A Grade III Reps/Duration 4x30 Comments for increased AROM into ER. Monitored for pain, none reported. Increased AROM restrictions due to soft tissue with increasing abduction R AC joint Direction post on scapular spine, ant on clavicle Grade III Body Position Sidelying Reps/Duration 1x10 ea Comments To increase joint space, pain reduction for improved overhead mobility. Monitored for pain, none reported. Improved anterior clavicle mobility since last session 1st rib Joint R 1st rib, 2-3 rib in axilla Direction caudal Grade III Body Position Sidelying Reps/Duration 1x10, Comments After lat STM to decrease tenderness PT-OP-T Assessment and Plan Start: 09/26/23 16:19 Freq: Status: Active Protocol: Document 10/04/23 07:34 NM (Rec: 10/04/23 09:01 NM [id number]) Physical Therapy Assessment Goals Five Impairment activity Short Term Goal (STG) Pt will report at least 30% return to prior level of activity in order to demonstrate improved QOL, activity tolerance, and pain management STG Duration 4 weeks Half-Way Goal (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 LTG Duration 8 weeks Four Impairment strength Impairment R shoulder strength grossly 4/ 5 for ER, IR, and flexion Supervisor [place] Goal (LTG) Pt will improve R shoulder gross MMT to at least 4+/5 with pain <2/10 in order to demonstrate improved tolerance for activity, ADLs. LTG Duration 8 weeks Three Impairment periscapular strength Impairment grossly 4/5 Supervisor [place] Goal (LTG) Pt will improve periscapular strength to at least 4+/5 without compensation in order to demonstrate increased scapular control during arm elevation LTG Duration 8 weeks Two Impairment AROM Impairment Apley IR scratch test: T12 Short Term Goal (STG) Pt will improve R Apley IR scratch test AROM to at least T10 in order to demonstrate improved AROM for ADLs. STG Duration 4 weeks Supervisor [place] Goal (LTG) Pt will improve R Apley IR scratch test AROM to at least T8 in order to demonstrate improved AROM for ADLs, comparable to L Apley. LTG Duration 8 weeks One Impairment quickdash Impairment quickdash 18% Supervisor [place] Goal (LTG) Pt will decrease quickdash score by at least 9% in order to demonstrate improved function and QOL LTG Duration 8 weeks Assessment Summary Assessment Pt tolerated session well. Continues to report tightness of R upper trapezius and cervical spine paraspinals, but states improved since IE. Continued with periscapular strengthening to improve force couple of scapula during shoulder elevation. Trialed serratus protraction in quadruped then progressed to push up plus as pt pain free and with good form. PT cueing for R shoulder relaxation, limit upper trapezius involvement. Manual treatment to decrease soft tissue restrictions of lat, posterior cuff, and cervical spine muscles. Most limited at cervical spine. Pt with some mobility limitations of R shoulder due to decreased rib mobility, so continued with 1st rib mobilizations and added 2nd/3rd rib mobilizations. Initiate glenohumeral P-A mobilizations for improved ER as abduction increases. Demos soft tissue restrictions that limit mobility, but reports no pain. PT educated pt on activity modification with push ups as pt does those daily (narrow hand support due to strain on anterior shoulder with wide support). Pt would benefit from skilled PT for periscapular and rotator cuff strengthening in addition to scapular mechanics in order to decrease pain symptoms and return to PLOF. Physical Therapy Plan Frequency and Duration Frequency of Treatment 2x/Week Duration of treatment (weeks) 8 Plan of Care Start Date 09/27/23 Plan of Care End Date 11/22/23 Therapeutic Interventions Therapeutic Interventions Aquatic Therapy,Coordination Training,Home Exercise Program ,Joint Mobilizations,Manual Therapy,Neuromuscular Re- education,Orthotic/Prosthetic Management,Patient/Caregiver Education,Self-Care/Home Management,Sensory Integration ,Soft Tissue Mobilization, Taping,Therapeutic Activities, Therapeutic Exercises Modalities Cold Pack/Ice Massage,Electric Stimulation,Hot Packs, Traction- Mechanical, Ultrasound,Vasopneumatic Devices Other Referrals/Consults Referrals/Consults Recommended Recommend MRI and referral to ortho depending on pt progression with conservative treatment Next Visit Focus/Plan Next Note Type Treatment Note Next Visit Plan Next session: initiate RTC in closed chain, periscapular strengthening. Cont scap mechanics. Progress as higher level depending on pain, prone abd up to 90 ER/IR ~ throwing Review Cervical spine STM, stretching as needed; Progress prone ITYW as tolerated, pec stretch, thoracic mobility and strengthening. Lower/Middle trap activation gentle RTC strengthening as able, scapular mechanics *be aware of bicep irritation
--- NOTE | 2023-10-07 08:15 | PT.OTN ---
Current Diagnoses Pain in right shoulder (10/07/23) Other specified joint disorders, right shoulder (10/07/23) Physical Therapy Treatment Note PT-OP-A Visit Information Start: 09/26/23 16:19 Freq: Status: Active Protocol: Document 10/07/23 07:33 SP (Rec: 10/07/23 08:18 SP [id number]) Out-Patient Physical Therapy Visit Information Visit Information Visit Type Treatment Note Visit Start Time 07:33 Visit Stop Time 08:15 Visit Number 4 Number of ESTIMATOR PRINTING Visits 1 Evaluation Information Evaluation Date 09/27/23 PT-OP-B Current Condition Start: 09/26/23 16:19 Freq: Status: Active Protocol: Document 09/27/23 07:29 NM (Rec: 09/27/23 08:17 NM [id number]) Current Condition History of Current Condition Onset Date 3-4 months ago Current Complaints pain with throwing, resting pain History of Current Condition Pt presents with R shoulder pain beginning without known NOE several months ago. He currently had dx of impingement, likely from overuse. Recently received cortisone injection 3 weeks ago and is on anti- inflammatories, which helps. 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 Reports pain is most noticeable when lifting, driving. Has hx of R rotator cuff repair 20 years ago; states this feels the same. No MRI, but did an x-ray without conclusive results. Trying conservative treatment. Pt lifts weights every day but has decreased (previously power lifting, body weight lifting). 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 Worse with throwing, overhead pushing (pull ups are ok). 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) Functional Limitations- Recreation/ limitations in throwing, Hobbies lifting weights, exercising; no mountain biking due to pain Functional Limitations- Other pain with sleeping PT-OP-C Subjective Start: 09/26/23 16:19 Freq: Status: Active Protocol: Document 10/07/23 07:33 SP (Rec: 10/07/23 08:18 SP [id number]) OP-PT Subjective Patient Comments Patient Comments Pt reports compliant with HEP PT-OP-E Functional Tests Start: 09/26/23 16:19 Freq: Status: Active Protocol: Document 09/27/23 07:29 NM (Rec: 09/27/23 08:17 NM [id number]) Functional Tests Apley's Scratch Test Action 1- Left post cuff Action 1- Right post cuff, min discomfort Action 2- Left T5 Action 2- Right T4, min discomfort (1/10) Action 3- Left T7 Action 3- Right T12 (most provocative, /10) PT-OP-F Manual Assessment Start: 09/26/23 16:19 Freq: Status: Active Protocol: Document 09/27/23 07:29 NM (Rec: 09/27/23 18:19 NM [id number]) Manual Assessments Soft Tissue Assessment Soft Tissue Mobility Assessment Increased tone of R upper trapezius, levator scapula, R cervical spine paraspinals. Restrictions of posterior cuff muscles, pectorals Joint Mobility Assessment Joint Mobility Assessment Anterior position R humeral head. Full bilateral shoulder AROM into flexion and abduction, IR. Limited shoulder ER AROM, flora with increased abduction. B scapulae 2 from spine. Delayed R scapulohumeral rhythm with arm elevation. Decreased R AC joint space, elevated R 1st rib PT-OP-H Neuro Start: 09/26/23 16:19 Freq: Status: Active Protocol: Document 09/27/23 07:29 NM (Rec: 09/27/23 18:19 NM [id number]) Sensation Evaluation Gross Sensation Gross Sensation WNL Comments Summary Comments BUE equally intact to light touch sensation PT-OP-J Posture/Palpation/Skin Start: 09/26/23 16:19 Freq: Status: Active Protocol: Document 09/27/23 07:29 NM (Rec: 09/27/23 18:19 NM [id number]) Posture Evaluation Position Standing Evaluation View posterior, lateral Head/C-Spine Posture Forward Head T-Spine Posture Neutral L-Spine Posture Decreased Lordosis Shoulder Posture (L) Rounded,(R) Rounded Scapula Posture (L) Protracted,(R) Protracted, (R) Elevated Arm Posture (L) Internally Rotated,(R) Internally Rotated Pelvis Posture Neutral Weight Distribution Balanced Hip Posture (L) Neutral,(R) Neutral Knee Posture (L) Genu Valgus,(R) Genu Valgus Patellar Posture (L) Superior,(R) Superior Ankle/Foot Posture (L) Neutral,(R) Neutral Palpation Assessment Location cervical spine Palpation Location paraspinals, upper trap, levator scapula Palpation Findings Soft Tissue Tightness,Spasm Palpation Details Spasm R upper trapezius, levator scapula, paraspinals R shoulder Palpation Location long head biceps, rotator cuff insertion, posterior cuff, pectoral Palpation Findings Soft Tissue Tightness, Tenderness Palpation Details Tenderness along long head biceps, rotator cuff insertion . Soft tissue tightness of rotator cuff muscles, pectorals PT-OP-K Range of Motion Start: 09/26/23 16:19 Freq: Status: Active Protocol: Document 09/27/23 07:29 NM (Rec: 09/27/23 08:17 NM [id number]) Cervical Spine Range of Motion Cervical Spine Active Degrees Testing Position Sitting Flexion 65 Extension 45 Rotation Left 80 Rotation Right 83 Lateral Flexion Left 30 Lateral Flexion Right 30 ROM Limitations Soft Tissue Tightness Comments Crepitus with lateral flexion, extension; no pain Shoulder Goniometric Range of Motion Shoulder R shoulder PROM Flexion 175 Abduction 175 External Rotation at 90 degrees 70 Abduction External Rotation at 45 degrees 65 Abduction Internal Rotation 80 Comments Min discomfort with end range ER L shoulder AROM Testing Position Sitting Flexion 165 Abduction 170 External Rotation at 90 degrees 60 Abduction External Rotation at 45 degrees 50 Abduction External Rotation at 0 degrees Abduction 40 Internal Rotation 80 R shoulder AROM Testing Position Sitting Flexion 170 Abduction 172 External Rotation at 90 degrees 70 Abduction External Rotation at 45 degrees 60 Abduction External Rotation at 0 degrees Abduction 40 Internal Rotation 80 Comments pain with 45 deg abd (08/21) PT-OP-L Special Tests Start: 09/26/23 16:19 Freq: Status: Active Protocol: Document 09/27/23 07:29 NM (Rec: 09/27/23 08:17 NM [id number]) Special Tests Cervical Spine Special Tests Distraction Test Results - Spurling's Test Test Results - Shoulder Special Tests IR/Horizontal ADD Impingement Test Results + Yahirrclaudioson's Biceps Test Results + Comments painful, no loss of strength Speed's Biceps Test Results + Whitt Tho Impingement Test Results + Lift-Off Rotator Cuff Test Results + Comments painful, able to perform with AROM and against minimal resistance ER lag (rotator cuff) Test Results - Empty Can Test Results + Comments Min pain but reports full can worse PT-OP-M Strength Start: 09/26/23 16:19 Freq: Status: Active Protocol: Document 09/27/23 07:29 NM (Rec: 09/27/23 08:17 NM [id number]) Scapula Strength Scapula Manual Muscle Testing Left Elevation (C4) 4+ Good+ Adduction 4+ Good+ Abduction 4+ Good+ Depression 4+ Good+ Right Elevation (C4) 4 Good Adduction 4 Good Abduction 4 Good Depression 4 Good Comments Minimal pain with resisted testing; no limits ROM Shoulder Strength Shoulder Manual Muscle Testing Left shoulder Flexion 5 Normal Extension 5 Normal Abduction (C5) 5 Normal Adduction 5 Normal External Rotation 5 Normal Internal Rotation 5 Normal Horizontal Abduction 5 Normal Horizontal Adduction 5 Normal Right shoulder Flexion 4 Good Extension 5 Normal Abduction (C5) 4+ Good+ External Rotation 4 Good Internal Rotation 4 Good Horizontal Abduction 4 Good Horizontal Adduction 4 Good Comments Moderate pain with resisted ER ; minimal pain with resisted flexion, IR, abduction Elbow/Forearm Strength Elbow and Forearm Manual Muscle Testing Left Flexion (C6) 5 Normal Extension (C7) 5 Normal Right Flexion (C6) 5 Normal Extension (C7) 5 Normal Comments No pain with resisted flexion PT-OP-Q Treatments Start: 09/26/23 16:19 Freq: Status: Active Protocol: Document 10/07/23 07:33 SP (Rec: 10/07/23 08:18 SP [id number]) Therapeutic Exercises Prone Exercises ball walk outs Prone Exercise Name 1. walk outs to shins (added to HEP) 2. shld taps (ball at knees) Equipment Used over 65cm tball Reps/Minutes 4 ft x5 reps, 5 reps alternate taps Comments cued SerrPress level scap and core fac walk out slow, taps challenged inPT Prone T, W Prone Exercise Name for periscapular strengthening Side bilateral Resistance 2# db Ts, 1#DB>AROM Ws Equipment Used large green 65cm zambian ball Reps/Minutes 10 each pnfree Comments tactil and VCs for head/neck/ scap align and not over activate, ER /c trunk Sidelying Exercises sidelying HABD Sidelying Exercise Name FROM Resistance 3# DB Reps/Minutes x10 Comments ESTIMATOR PRINTING cues humeral ER and slower pacing, painfree sidelying abduction Sidelying Exercise Name FROM Side right Resistance AROM >3>5# db Reps/Minutes x10 Comments ESTIMATOR PRINTING initially inferior glide then SP throughout range, painfree sidelying flexion Sidelying Exercise Name to 160 deg Side right Equipment Used AROM>3# db Reps/Minutes 1x10 ea Comments ESTIMATOR PRINTING occasional tactile cues for Rhomboid and LT fac, pnfree PT-OP-T Assessment and Plan Start: 09/26/23 16:19 Freq: Status: Active Protocol: Document 10/07/23 07:33 SP (Rec: 10/07/23 08:18 SP [id number]) Physical Therapy Assessment Goals Five Impairment activity Short Term Goal (STG) Pt will report at least 30% return to prior level of activity in order to demonstrate improved QOL, activity tolerance, and pain management STG Duration 4 weeks [facility] Goal (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 LTG Duration 8 weeks Four Impairment strength Impairment R shoulder strength grossly 4/ 5 for ER, IR, and flexion [facility] Goal (LTG) Pt will improve R shoulder gross MMT to at least 4+/5 with pain <2/10 in order to demonstrate improved tolerance for activity, ADLs. LTG Duration 8 weeks Three Impairment periscapular strength Impairment grossly 4/5 [facility] Goal (LTG) Pt will improve periscapular strength to at least 4+/5 without compensation in order to demonstrate increased scapular control during arm elevation LTG Duration 8 weeks Two Impairment AROM Impairment Apley IR scratch test: T12 Short Term Goal (STG) Pt will improve R Apley IR scratch test AROM to at least T10 in order to demonstrate improved AROM for ADLs. STG Duration 4 weeks [employer] Goal (LTG) Pt will improve R Apley IR scratch test AROM to at least T8 in order to demonstrate improved AROM for ADLs, comparable to L Apley. LTG Duration 8 weeks One Impairment quickdash Impairment quickdash 18% [employer] Goal (LTG) Pt will decrease quickdash score by at least 9% in order to demonstrate improved function and QOL LTG Duration 8 weeks Assessment Summary Assessment Pt improved humeral inferior glide and serratus activation with tactile and verbal cues reports painfree during added resistance to sidelying FF, ABD, HABD. Good carryover added resisted standing ABD and ABD /c IR/ eccentric ER and ball walkouts with instruction slower pacing rep to allow normalizing GH ROM painfree with proper scapulothoracic rhythm form into HEP, declined HOs. Pt challenged maintain serratus press activation during WB shld taps and FF against resistance in standing with Max cuing, will continue in PT . Pt would benefit from continued serratus press strengthening through GH ROM to allow return to overhead activities in his daily lift has been limited. Physical Therapy Plan Frequency and Duration Frequency of Treatment 2x/Week Duration of treatment (weeks) 8 Plan of Care Start Date 09/27/23 Plan of Care End Date 11/22/23 Therapeutic Interventions Therapeutic Interventions Aquatic Therapy,Coordination Training,Home Exercise Program ,Joint Mobilizations,Manual Therapy,Neuromuscular Re- education,Orthotic/Prosthetic Management,Patient/Caregiver Education,Self-Care/Home Management,Sensory Integration ,Soft Tissue Mobilization, Taping,Therapeutic Activities, Therapeutic Exercises Modalities Cold Pack/Ice Massage,Electric Stimulation,Hot Packs, Traction- Mechanical, Ultrasound,Vasopneumatic Devices Other Referrals/Consults Referrals/Consults Recommended Recommend MRI and referral to ortho depending on pt progression with conservative treatment Next Visit Focus/Plan Next Note Type Treatment Note Next Visit Plan REview newly added ABD/ER, ABD and ballwalkouts added last tx. Next tx add periscapular and Serratus Press strengthening from close into open chain: TB and body blade /c scap mechanics. Progress as higher level depending on pain, prone abd up to 90 ER/IR ~ throwing Review Cervical spine STM, stretching as needed; Progress prone ITYW as tolerated, pec stretch, thoracic mobility and strengthening. Lower/Middle trap activation gentle RTC strengthening as able, scapular mechanics *be aware of bicep irritation
--- NOTE | 2023-10-09 08:15 | PT.OTN ---
Current Diagnoses Pain in right shoulder (10/09/23) Other specified joint disorders, right shoulder (10/09/23) Physical Therapy Treatment Note PT-OP-A Visit Information Start: 09/26/23 16:19 Freq: Status: Active Protocol: Document 10/09/23 07:31 SP (Rec: 10/09/23 08:36 SP [id number]) Out-Patient Physical Therapy Visit Information Visit Information Visit Type Treatment Note Visit Start Time 07:31 Visit Stop Time 08:15 Visit Number 5 Number of HAIRSPRING STAKER Visits 2 Evaluation Information Evaluation Date 09/27/23 PT-OP-B Current Condition Start: 09/26/23 16:19 Freq: Status: Active Protocol: Document 09/27/23 07:29 NM (Rec: 09/27/23 08:17 NM [id number]) Current Condition History of Current Condition Onset Date 3-4 months ago Current Complaints pain with throwing, resting pain History of Current Condition Pt presents with R shoulder pain beginning without known NOE several months ago. He currently had dx of impingement, likely from overuse. Recently received cortisone injection 3 weeks ago and is on anti- inflammatories, which helps. 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 Reports pain is most noticeable when lifting, driving. Has hx of R rotator cuff repair 20 years ago; states this feels the same. No MRI, but did an x-ray without conclusive results. Trying conservative treatment. Pt lifts weights every day but has decreased (previously power lifting, body weight lifting). Hx of ache, sharp pain (wide fly setter), overhead reaching (worse if loaded), sleeping when across chest; reports no changes in mobility and minimal changes in strength. Worse with throwing, overhead pushing (pull ups are ok). 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 PT-OP-E Functional Tests Start: 09/26/23 16:19 Freq: Status: Active Protocol: Document 09/27/23 07:29 NM (Rec: 09/27/23 08:17 NM [id number]) Functional Tests Apley's Scratch Test Action 1- Left post cuff Action 1- Right post cuff, min discomfort Action 2- Left T5 Action 2- Right T4, min discomfort (/10) Action 3- Left T7 Action 3- Right T12 (most provocative, /10) PT-OP-F Manual Assessment Start: 09/26/23 16:19 Freq: Status: Active Protocol: Document 09/27/23 07:29 NM (Rec: 09/27/23 18:19 NM [id number]) Manual Assessments Soft Tissue Assessment Soft Tissue Mobility Assessment Increased tone of R upper trapezius, levator scapula, R cervical spine paraspinals. Restrictions of posterior cuff muscles, pectorals Joint Mobility Assessment Joint Mobility Assessment Anterior position R humeral head. Full bilateral shoulder AROM into flexion and abduction, IR. Limited shoulder ER AROM, flora with increased abduction. B scapulae 2 from spine. Delayed R scapulohumeral rhythm with arm elevation. Decreased R AC joint space, elevated R 1st rib PT-OP-H Neuro Start: 09/26/23 16:19 Freq: Status: Active Protocol: Document 09/27/23 07:29 NM (Rec: 09/27/23 18:19 NM [id number]) Sensation Evaluation Gross Sensation Gross Sensation WNL Comments Summary Comments BUE equally intact to light touch sensation PT-OP-J Posture/Palpation/Skin Start: 09/26/23 16:19 Freq: Status: Active Protocol: Document 09/27/23 07:29 NM (Rec: 09/27/23 18:19 NM [id number]) Posture Evaluation Position Standing Evaluation View posterior, lateral Head/C-Spine Posture Forward Head T-Spine Posture Neutral L-Spine Posture Decreased Lordosis Shoulder Posture (L) Rounded,(R) Rounded Scapula Posture (L) Protracted,(R) Protracted, (R) Elevated Arm Posture (L) Internally Rotated,(R) Internally Rotated Pelvis Posture Neutral Weight Distribution Balanced Hip Posture (L) Neutral,(R) Neutral Knee Posture (L) Genu Valgus,(R) Genu Valgus Patellar Posture (L) Superior,(R) Superior Ankle/Foot Posture (L) Neutral,(R) Neutral Palpation Assessment Location cervical spine Palpation Location paraspinals, upper trap, levator scapula Palpation Findings Soft Tissue Tightness,Spasm Palpation Details Spasm R upper trapezius, levator scapula, paraspinals R shoulder Palpation Location long head biceps, rotator cuff insertion, posterior cuff, pectoral Palpation Findings Soft Tissue Tightness, Tenderness Palpation Details Tenderness along long head biceps, rotator cuff insertion . Soft tissue tightness of rotator cuff muscles, pectorals PT-OP-K Range of Motion Start: 09/26/23 16:19 Freq: Status: Active Protocol: Document 09/27/23 07:29 NM (Rec: 09/27/23 08:17 NM [id number]) Cervical Spine Range of Motion Cervical Spine Active Degrees Testing Position Sitting Flexion 65 Extension 45 Rotation Left 80 Rotation Right 83 Lateral Flexion Left 30 Lateral Flexion Right 30 ROM Limitations Soft Tissue Tightness Comments Crepitus with lateral flexion, extension; no pain Shoulder Goniometric Range of Motion Shoulder R shoulder PROM Flexion 175 Abduction 175 External Rotation at 90 degrees 70 Abduction External Rotation at 45 degrees 65 Abduction Internal Rotation 80 Comments Min discomfort with end range ER L shoulder AROM Testing Position Sitting Flexion 165 Abduction 170 External Rotation at 90 degrees 60 Abduction External Rotation at 45 degrees 50 Abduction External Rotation at 0 degrees Abduction 40 Internal Rotation 80 R shoulder AROM Testing Position Sitting Flexion 170 Abduction 172 External Rotation at 90 degrees 70 Abduction External Rotation at 45 degrees 60 Abduction External Rotation at 0 degrees Abduction 40 Internal Rotation 80 Comments pain with 45 deg abd (08/21) PT-OP-L Special Tests Start: 09/26/23 16:19 Freq: Status: Active Protocol: Document 09/27/23 07:29 NM (Rec: 09/27/23 08:17 NM [id number]) Special Tests Cervical Spine Special Tests Distraction Test Results - Spurling's Test Test Results - Shoulder Special Tests IR/Horizontal ADD Impingement Test Results + Mercedes's Biceps Test Results + Comments painful, no loss of strength Speed's Biceps Test Results + Whitt Hto Impingement Test Results + Lift-Off Rotator Cuff Test Results + Comments painful, able to perform with AROM and against minimal resistance ER lag (rotator cuff) Test Results - Empty Can Test Results + Comments Min pain but reports full can worse PT-OP-M Strength Start: 09/26/23 16:19 Freq: Status: Active Protocol: Document 09/27/23 07:29 NM (Rec: 09/27/23 08:17 NM [id number]) Scapula Strength Scapula Manual Muscle Testing Left Elevation (C4) 4+ Good+ Adduction 4+ Good+ Abduction 4+ Good+ Depression 4+ Good+ Right Elevation (C4) 4 Good Adduction 4 Good Abduction 4 Good Depression 4 Good Comments Minimal pain with resisted testing; no limits ROM Shoulder Strength Shoulder Manual Muscle Testing Left shoulder Flexion 5 Normal Extension 5 Normal Abduction (C5) 5 Normal Adduction 5 Normal External Rotation 5 Normal Internal Rotation 5 Normal Horizontal Abduction 5 Normal Horizontal Adduction 5 Normal Right shoulder Flexion 4 Good Extension 5 Normal Abduction (C5) 4+ Good+ External Rotation 4 Good Internal Rotation 4 Good Horizontal Abduction 4 Good Horizontal Adduction 4 Good Comments Moderate pain with resisted ER ; minimal pain with resisted flexion, IR, abduction Elbow/Forearm Strength Elbow and Forearm Manual Muscle Testing Left Flexion (C6) 5 Normal Extension (C7) 5 Normal Right Flexion (C6) 5 Normal Extension (C7) 5 Normal Comments No pain with resisted flexion PT-OP-Q Treatments Start: 09/26/23 16:19 Freq: Status: Active Protocol: Document 10/09/23 07:31 SP (Rec: 10/09/23 08:36 SP [id number]) Cardio Equipment Upper Body Ergometer (UBE) Duration (Minutes) 6 RPM 50 Seat Position 13 Height 5 Other 1 min f/b alternating- got more challenging but no pain Therapeutic Exercises Supine Exercises serratus press Supine Exercise Name trialed Resistance 10#> 25# DB Equipment Used over foam roller Reps/Minutes x10 each Comments feels fine, tactile feedback good scap form, tactile good scap mob pectoralis stretch Supine Exercise Name 1. pec stretch up to 160* 2. Ts 5# DB 3. Ws 3# DB 4. FF AROM warm up Side bilateral Equipment Used foam roller Reps/Minutes 1. 60 total 2-4. 10 reps each Comments ed scapulothoracic and TS mob- good stretch/ROM Prone Exercises Is Side bilateral Resistance 5# DB Equipment Used prone over large green tball Reps/Minutes x10 Comments feels fine quadruped Prone Exercise Name 1. plank scap protraction 2. push up plus (full pushup) Side bilateral Equipment Used floor/declined mat (it's to short), HAIRSPRING STAKER prn tactile cue for protraction Reps/Minutes 1. 8 reps winging worse with reps-stopped 2. 8 w protract good form Comments cued full protaction; reports no pain shldr, close fly setter Prone T, W Prone Exercise Name for periscapular strengthening Side bilateral Resistance 2>3# db Ts, AROM> 1# DB Ws Equipment Used large green 65cm chadian ball Reps/Minutes 10 each pnfree Comments tactil R>L forearm ER // with trunk Sidelying Exercises sidelying abduction Sidelying Exercise Name FROM- added to HEP (no HO) Side right Resistance 5# db Reps/Minutes x10 Comments reports painfree Standing Exercises body blade Standing Exercise Name trialed in PT: FF 90*, IR/ER ( 90*FF), punch OH (ABD90*/ER 90 *), D2 flex Side right Resistance large body blade Reps/Minutes 30 each Comments tiring painfree FF & ABD Standing Exercise Name trialed in PT Side right Resistance 5# DB & TB #2 Reps/Minutes 5-8 reps each- improved little tactile prox humeral inf glide ABD Comments painfree FF but hard correct winging approx 80* FF, pinch abd approx 100* ABD ER Standing Exercise Name trialed & added to HEP (no HO) Side right Resistance #2 OTB Reps/Minutes x10 Comments tall kneel, little twinge end range ant AC jt ABD IR & ecc ER Standing Exercise Name reviewed HEP Side right Resistance TB #3>6 Reps/Minutes x15 Comments good form, painfree PT-OP-T Assessment and Plan Start: 09/26/23 16:19 Freq: Status: Active Protocol: Document 10/09/23 07:31 SP (Rec: 10/09/23 08:36 SP [id number]) Physical Therapy Assessment Goals Five Impairment activity Short Term Goal (STG) Pt will report at least 30% return to prior level of activity in order to demonstrate improved QOL, activity tolerance, and pain management STG Duration 4 weeks Halfway Goal (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 LTG Duration 8 weeks Four Impairment strength Impairment R shoulder strength grossly 4/ 5 for ER, IR, and flexion [employer] Professor Goal (LTG) Pt will improve R shoulder gross MMT to at least 4+/5 with pain <2/10 in order to demonstrate improved tolerance for activity, ADLs. LTG Duration 8 weeks Three Impairment periscapular strength Impairment grossly 4/5 Halfway Goal (LTG) Pt will improve periscapular strength to at least 4+/5 without compensation in order to demonstrate increased scapular control during arm elevation LTG Duration 8 weeks Two Impairment AROM Impairment Apley IR scratch test: T12 Short Term Goal (STG) Pt will improve R Apley IR scratch test AROM to at least T10 in order to demonstrate improved AROM for ADLs. STG Duration 4 weeks Halfway Goal (LTG) Pt will improve R Apley IR scratch test AROM to at least T8 in order to demonstrate improved AROM for ADLs, comparable to L Apley. LTG Duration 8 weeks One Impairment quickdash Impairment quickdash 18% [employer] Professor Goal (LTG) Pt will decrease quickdash score by at least 9% in order to demonstrate improved function and QOL LTG Duration 8 weeks Assessment Summary Assessment Pt continues to have pinch feeling during standing R shld ABD against resistance approx , improves little with tactile cues for proximal humeral inferior glide, R scap winging FF against resistance, slight improvement 2 reps with tactile cues for rhomboid and serratus activation but hard to maintain. Good effort and muscle tiring rest of ther ex today, cues as needed for head , scap and forearm positioning to allow proper form and proximal stab through ROM. Pt report no pain end tx. Physical Therapy Plan Frequency and Duration Frequency of Treatment 2x/Week Duration of treatment (weeks) 8 Plan of Care Start Date 09/27/23 Plan of Care End Date 11/22/23 Therapeutic Interventions Therapeutic Interventions Aquatic Therapy,Coordination Training,Home Exercise Program ,Joint Mobilizations,Manual Therapy,Neuromuscular Re- education,Orthotic/Prosthetic Management,Patient/Caregiver Education,Self-Care/Home Management,Sensory Integration ,Soft Tissue Mobilization, Taping,Therapeutic Activities, Therapeutic Exercises Modalities Cold Pack/Ice Massage,Electric Stimulation,Hot Packs, Traction- Mechanical, Ultrasound,Vasopneumatic Devices Other Referrals/Consults Referrals/Consults Recommended Recommend MRI and referral to ortho depending on pt progression with conservative treatment Next Visit Focus/Plan Next Note Type Treatment Note Next Visit Plan REview standing resisted ABD ER and eccentric ER, Continue periscapular and Serratus Press strengthening from close into open chain: TB and body blade /c scap mechanics. Progress as higher level depending on pain, prone abd up to 90 ER/IR ~ throwing Review Cervical spine STM, stretching as needed; Progress prone ITYW as tolerated, pec stretch, thoracic mobility and strengthening. Lower/Middle trap activation gentle RTC strengthening as able, scapular mechanics *be aware of bicep irritation
--- NOTE | 2023-10-16 08:14 | PT.OTN ---
Current Diagnoses Pain in right shoulder (10/16/23) Other specified joint disorders, right shoulder (10/16/23) Physical Therapy Treatment Note PT-OP-A Visit Information Start: 09/26/23 16:19 Freq: Status: Active Protocol: Document 10/16/23 07:32 SP (Rec: 10/16/23 08:16 SP [id number]) Out-Patient Physical Therapy Visit Information Visit Information Visit Type Treatment Note Visit Note pt in bathroom initial arrival post check in Visit Start Time 07:34 Visit Stop Time 08:14 Visit Number 6 Number of [employer] Visits 3 Evaluation Information Evaluation Date 09/27/23 PT-OP-B Current Condition Start: 09/26/23 16:19 Freq: Status: Active Protocol: Document 09/27/23 07:29 NM (Rec: 09/27/23 08:17 NM [id number]) Current Condition History of Current Condition Onset Date 3-4 months ago Current Complaints pain with throwing, resting pain History of Current Condition Pt presents with R shoulder pain beginning without known NOE several months ago. He currently had dx of impingement, likely from overuse. Recently received cortisone injection 3 weeks ago and is on anti- inflammatories, which helps. 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 Reports pain is most noticeable when lifting, driving. Has hx of R rotator cuff repair 20 years ago; states this feels the same. No MRI, but did an x-ray without conclusive results. Trying conservative treatment. Pt lifts weights every day but has decreased (previously power lifting, body weight lifting). 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 Worse with throwing, overhead pushing (pull ups are ok). 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 Not seeing significant change/ improvement in discomfort when reaches out to side and OH. PT-OP-E Functional Tests Start: 09/26/23 16:19 Freq: Status: Active Protocol: Document 09/27/23 07:29 NM (Rec: 09/27/23 08:17 NM [id number]) Functional Tests Apley's Scratch Test Action 1- Left post cuff Action 1- Right post cuff, min discomfort Action 2- Left T5 Action 2- Right T4, min discomfort (/10) Action 3- Left T7 Action 3- Right T12 (most provocative, /10) PT-OP-F Manual Assessment Start: 09/26/23 16:19 Freq: Status: Active Protocol: Document 09/27/23 07:29 NM (Rec: 09/27/23 18:19 NM [id number]) Manual Assessments Soft Tissue Assessment Soft Tissue Mobility Assessment Increased tone of R upper trapezius, levator scapula, R cervical spine paraspinals. Restrictions of posterior cuff muscles, pectorals Joint Mobility Assessment Joint Mobility Assessment Anterior position R humeral head. Full bilateral shoulder AROM into flexion and abduction, IR. Limited shoulder ER AROM, flora with increased abduction. B scapulae 2 from spine. Delayed R scapulohumeral rhythm with arm elevation. Decreased R AC joint space, elevated R 1st rib PT-OP-H Neuro Start: 09/26/23 16:19 Freq: Status: Active Protocol: Document 09/27/23 07:29 NM (Rec: 09/27/23 18:19 NM [id number]) Sensation Evaluation Gross Sensation Gross Sensation WNL Comments Summary Comments BUE equally intact to light touch sensation PT-OP-J Posture/Palpation/Skin Start: 09/26/23 16:19 Freq: Status: Active Protocol: Document 09/27/23 07:29 NM (Rec: 09/27/23 18:19 NM [id number]) Posture Evaluation Position Standing Evaluation View posterior, lateral Head/C-Spine Posture Forward Head T-Spine Posture Neutral L-Spine Posture Decreased Lordosis Shoulder Posture (L) Rounded,(R) Rounded Scapula Posture (L) Protracted,(R) Protracted, (R) Elevated Arm Posture (L) Internally Rotated,(R) Internally Rotated Pelvis Posture Neutral Weight Distribution Balanced Hip Posture (L) Neutral,(R) Neutral Knee Posture (L) Genu Valgus,(R) Genu Valgus Patellar Posture (L) Superior,(R) Superior Ankle/Foot Posture (L) Neutral,(R) Neutral Palpation Assessment Location cervical spine Palpation Location paraspinals, upper trap, levator scapula Palpation Findings Soft Tissue Tightness,Spasm Palpation Details Spasm R upper trapezius, levator scapula, paraspinals R shoulder Palpation Location long head biceps, rotator cuff insertion, posterior cuff, pectoral Palpation Findings Soft Tissue Tightness, Tenderness Palpation Details Tenderness along long head biceps, rotator cuff insertion . Soft tissue tightness of rotator cuff muscles, pectorals PT-OP-K Range of Motion Start: 09/26/23 16:19 Freq: Status: Active Protocol: Document 09/27/23 07:29 NM (Rec: 09/27/23 08:17 NM [id number]) Cervical Spine Range of Motion Cervical Spine Active Degrees Testing Position Sitting Flexion 65 Extension 45 Rotation Left 80 Rotation Right 83 Lateral Flexion Left 30 Lateral Flexion Right 30 ROM Limitations Soft Tissue Tightness Comments Crepitus with lateral flexion, extension; no pain Shoulder Goniometric Range of Motion Shoulder R shoulder PROM Flexion 175 Abduction 175 External Rotation at 90 degrees 70 Abduction External Rotation at 45 degrees 65 Abduction Internal Rotation 80 Comments Min discomfort with end range ER L shoulder AROM Testing Position Sitting Flexion 165 Abduction 170 External Rotation at 90 degrees 60 Abduction External Rotation at 45 degrees 50 Abduction External Rotation at 0 degrees Abduction 40 Internal Rotation 80 R shoulder AROM Testing Position Sitting Flexion 170 Abduction 172 External Rotation at 90 degrees 70 Abduction External Rotation at 45 degrees 60 Abduction External Rotation at 0 degrees Abduction 40 Internal Rotation 80 Comments pain with 45 deg abd (08/21) PT-OP-L Special Tests Start: 09/26/23 16:19 Freq: Status: Active Protocol: Document 09/27/23 07:29 NM (Rec: 09/27/23 08:17 NM [id number]) Special Tests Cervical Spine Special Tests Distraction Test Results - Spurling's Test Test Results - Shoulder Special Tests IR/Horizontal ADD Impingement Test Results + Mercedes's Biceps Test Results + Comments painful, no loss of strength Speed's Biceps Test Results + Whitt Tho Impingement Test Results + Lift-Off Rotator Cuff Test Results + Comments painful, able to perform with AROM and against minimal resistance ER lag (rotator cuff) Test Results - Empty Can Test Results + Comments Min pain but reports full can worse PT-OP-M Strength Start: 09/26/23 16:19 Freq: Status: Active Protocol: Document 09/27/23 07:29 NM (Rec: 09/27/23 08:17 NM [id number]) Scapula Strength Scapula Manual Muscle Testing Left Elevation (C4) 4+ Good+ Adduction 4+ Good+ Abduction 4+ Good+ Depression 4+ Good+ Right Elevation (C4) 4 Good Adduction 4 Good Abduction 4 Good Depression 4 Good Comments Minimal pain with resisted testing; no limits ROM Shoulder Strength Shoulder Manual Muscle Testing Left shoulder Flexion 5 Normal Extension 5 Normal Abduction (C5) 5 Normal Adduction 5 Normal External Rotation 5 Normal Internal Rotation 5 Normal Horizontal Abduction 5 Normal Horizontal Adduction 5 Normal Right shoulder Flexion 4 Good Extension 5 Normal Abduction (C5) 4+ Good+ External Rotation 4 Good Internal Rotation 4 Good Horizontal Abduction 4 Good Horizontal Adduction 4 Good Comments Moderate pain with resisted ER ; minimal pain with resisted flexion, IR, abduction Elbow/Forearm Strength Elbow and Forearm Manual Muscle Testing Left Flexion (C6) 5 Normal Extension (C7) 5 Normal Right Flexion (C6) 5 Normal Extension (C7) 5 Normal Comments No pain with resisted flexion PT-OP-Q Treatments Start: 09/26/23 16:19 Freq: Status: Active Protocol: Document 10/16/23 07:32 SP (Rec: 10/16/23 08:16 SP [id number]) Cardio Equipment Upper Body Ergometer (UBE) Duration (Minutes) 6 RPM 50 Seat Position 13 Height 5 Other 1 min f/b alternating- got more challenging but no pain Therapeutic Exercises Prone Exercises ER Side right Resistance AROM> 3# DB Equipment Used towel roll under humerus Reps/Minutes x8 reps each Comments pnfree with good Sidelying Exercises sidelying HABD Sidelying Exercise Name FROM Resistance 3>5# DB Reps/Minutes x10 Comments Scapular glide and TS rotation slower pacing, painfree sidelying abduction Sidelying Exercise Name FROM- reviewed Side right Resistance 5# db Reps/Minutes x10 Comments reports painfree, tactile cues for rhomboid and no winging return sidelying shoulder external rotation Side right Resistance AROM 3>5# db Equipment Used towel btwn arm/body Reps/Minutes 1x10 ea Comments reports no irritation at ant shldr, challenge >90 deg Standing Exercises R IR Standing Exercise Name added to HEP stretch- no HO Side right Resistance AROM approx T10 Equipment Used discussed use towel progress range awareness no winging and good posture Reps/Minutes 2 Comments pnfree ABD IR & ecc ER Standing Exercise Name reviewed HEP: 1. abd/er 2. Ws slide OH small range into ER bg Side right Resistance TB #6 purple Reps/Minutes x20 Comments good form, painfree Other Exercises self soft tissue mobilization Other Exercise Name Scalene & SCM Side right Equipment Used racquetball Reps/Minutes 2 min total Comments reports feels good Manual Therapy Treatment Soft Tissue Mobilization cervical spine Body Location paraspinals, UT, scalene, SCM Mobilization Type Oscillations,Rolling,Sustained Pressure Intensity/Depth Moderate Body Position Sidelying Comments Continues with increased restriction at R UT and paraspinals but improved. No trigger point but still restricted, limits ROM at shoulder Joint Mobilizations R AC joint Direction post on scapular spine, ant on clavicle Grade III Body Position Sidelying Reps/Duration 1x10 ea Comments To increase joint space, pain reduction for improved overhead mobility. Monitored for pain, none reported. Improved anterior clavicle mobility since last session 1st rib Joint R 1st rib, 2-3 rib in axilla Direction caudal Grade III Body Position Sidelying Reps/Duration 1x10, Comments After lat STM to decrease tenderness PT-OP-T Assessment and Plan Start: 09/26/23 16:19 Freq: Status: Active Protocol: Document 10/16/23 07:32 SP (Rec: 10/16/23 08:16 SP [id number]) Physical Therapy Assessment Goals Five Impairment activity Short Term Goal (STG) Pt will report at least 30% return to prior level of activity in order to demonstrate improved QOL, activity tolerance, and pain management STG Duration 4 weeks Drafter Civil Goal (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 LTG Duration 8 weeks Four Impairment strength Impairment R shoulder strength grossly 4/ 5 for ER, IR, and flexion Drafter Civil Goal (LTG) Pt will improve R shoulder gross MMT to at least 4+/5 with pain <2/10 in order to demonstrate improved tolerance for activity, ADLs. LTG Duration 8 weeks Three Impairment periscapular strength Impairment grossly 4/5 Drafter Civil Goal (LTG) Pt will improve periscapular strength to at least 4+/5 without compensation in order to demonstrate increased scapular control during arm elevation LTG Duration 8 weeks Two Impairment AROM Impairment Apley IR scratch test: T12 Short Term Goal (STG) Pt will improve R Apley IR scratch test AROM to at least T10 in order to demonstrate improved AROM for ADLs. STG Duration 4 weeks Senior Living Goal (LTG) Pt will improve R Apley IR scratch test AROM to at least T8 in order to demonstrate improved AROM for ADLs, comparable to L Apley. LTG Duration 8 weeks One Impairment quickdash Impairment quickdash 18% Drafter Civil Goal (LTG) Pt will decrease quickdash score by at least 9% in order to demonstrate improved function and QOL LTG Duration 8 weeks Assessment Summary Assessment Pt reported good muscle tiring during resisted ther ex. Improvement in tightness anteriorly reduction post manual and initiated Scalene and SCM stretch. Noted improved abd/ER TB assist to gain ROM and allow self GH& scapula corrections to progress during AROM with reduction in impinging reports and tightness anterior neck to clavicle/ant R shld. Physical Therapy Plan Frequency and Duration Frequency of Treatment 2x/Week Duration of treatment (weeks) 8 Plan of Care Start Date 09/27/23 Plan of Care End Date 11/22/23 Therapeutic Interventions Therapeutic Interventions Aquatic Therapy,Coordination Training,Home Exercise Program ,Joint Mobilizations,Manual Therapy,Neuromuscular Re- education,Orthotic/Prosthetic Management,Patient/Caregiver Education,Self-Care/Home Management,Sensory Integration ,Soft Tissue Mobilization, Taping,Therapeutic Activities, Therapeutic Exercises Modalities Cold Pack/Ice Massage,Electric Stimulation,Hot Packs, Traction- Mechanical, Ultrasound,Vasopneumatic Devices Other Referrals/Consults Referrals/Consults Recommended Recommend MRI and referral to ortho depending on pt progression with conservative treatment Next Visit Focus/Plan Next Note Type Treatment Note Next Visit Plan PN in 4 visits. REview standing resisted ABD ER and eccentric ER, Scalene/SCM and IR stretches for progression OH mobility. POC: Continue periscapular and Serratus Press strengthening from close into open chain: TB and body blade /c scap mechanics. Progress as higher level depending on pain, prone abd up to 90 ER/IR ~ throwing Review Cervical spine STM, stretching as needed; Progress prone ITYW as tolerated, pec stretch, thoracic mobility and strengthening. Lower/Middle trap activation gentle RTC strengthening as able, scapular mechanics *be aware of bicep irritation
--- NOTE | 2023-10-22 10:02 | PT.OTN ---
Current Diagnoses Pain in right shoulder (10/22/23) Other specified joint disorders, right shoulder (10/22/23) Physical Therapy Treatment Note PT-OP-A Visit Information Start: 09/26/23 16:19 Freq: Status: Active Protocol: Document 10/22/23 07:31 NM (Rec: 10/22/23 08:17 NM [id number]) Out-Patient Physical Therapy Visit Information Visit Information Visit Type Treatment Note Visit Start Time 07:32 Visit Stop Time 08:15 Visit Number 7 Evaluation Information Evaluation Date 09/27/23 PT-OP-B Current Condition Start: 09/26/23 16:19 Freq: Status: Active Protocol: Document 09/27/23 07:29 NM (Rec: 09/27/23 08:17 NM [id number]) Current Condition History of Current Condition Onset Date 3-4 months ago Current Complaints pain with throwing, resting pain History of Current Condition Pt presents with R shoulder pain beginning without known NOE several months ago. He currently had dx of impingement, likely from overuse. Recently received cortisone injection 3 weeks ago and is on anti- inflammatories, which helps. 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 Reports pain is most noticeable when lifting, driving. Has hx of R rotator cuff repair 20 years ago; states this feels the same. No MRI, but did an x-ray without conclusive results. Trying conservative treatment. Pt lifts weights every day but has decreased (previously power lifting, body weight lifting). 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 Worse with throwing, overhead pushing (pull ups are ok). 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 Report no pain in shoulder, compliant with HEP without issue PT-OP-E Functional Tests Start: 09/26/23 16:19 Freq: Status: Active Protocol: Document 09/27/23 07:29 NM (Rec: 09/27/23 08:17 NM [id number]) Functional Tests Apley's Scratch Test Action 1- Left post cuff Action 1- Right post cuff, min discomfort Action 2- Left T5 Action 2- Right T4, min discomfort (/10) Action 3- Left T7 Action 3- Right T12 (most provocative, /10) PT-OP-F Manual Assessment Start: 09/26/23 16:19 Freq: Status: Active Protocol: Document 09/27/23 07:29 NM (Rec: 09/27/23 18:19 NM [id number]) Manual Assessments Soft Tissue Assessment Soft Tissue Mobility Assessment Increased tone of R upper trapezius, levator scapula, R cervical spine paraspinals. Restrictions of posterior cuff muscles, pectorals Joint Mobility Assessment Joint Mobility Assessment Anterior position R humeral head. Full bilateral shoulder AROM into flexion and abduction, IR. Limited shoulder ER AROM, flora with increased abduction. B scapulae 2 from spine. Delayed R scapulohumeral rhythm with arm elevation. Decreased R AC joint space, elevated R 1st rib PT-OP-H Neuro Start: 09/26/23 16:19 Freq: Status: Active Protocol: Document 09/27/23 07:29 NM (Rec: 09/27/23 18:19 NM [id number]) Sensation Evaluation Gross Sensation Gross Sensation WNL Comments Summary Comments BUE equally intact to light touch sensation PT-OP-J Posture/Palpation/Skin Start: 09/26/23 16:19 Freq: Status: Active Protocol: Document 09/27/23 07:29 NM (Rec: 09/27/23 18:19 NM [id number]) Posture Evaluation Position Standing Evaluation View posterior, lateral Head/C-Spine Posture Forward Head T-Spine Posture Neutral L-Spine Posture Decreased Lordosis Shoulder Posture (L) Rounded,(R) Rounded Scapula Posture (L) Protracted,(R) Protracted, (R) Elevated Arm Posture (L) Internally Rotated,(R) Internally Rotated Pelvis Posture Neutral Weight Distribution Balanced Hip Posture (L) Neutral,(R) Neutral Knee Posture (L) Genu Valgus,(R) Genu Valgus Patellar Posture (L) Superior,(R) Superior Ankle/Foot Posture (L) Neutral,(R) Neutral Palpation Assessment Location cervical spine Palpation Location paraspinals, upper trap, levator scapula Palpation Findings Soft Tissue Tightness,Spasm Palpation Details Spasm R upper trapezius, levator scapula, paraspinals R shoulder Palpation Location long head biceps, rotator cuff insertion, posterior cuff, pectoral Palpation Findings Soft Tissue Tightness, Tenderness Palpation Details Tenderness along long head biceps, rotator cuff insertion . Soft tissue tightness of rotator cuff muscles, pectorals PT-OP-K Range of Motion Start: 09/26/23 16:19 Freq: Status: Active Protocol: Document 09/27/23 07:29 NM (Rec: 09/27/23 08:17 NM [id number]) Cervical Spine Range of Motion Cervical Spine Active Degrees Testing Position Sitting Flexion 65 Extension 45 Rotation Left 80 Rotation Right 83 Lateral Flexion Left 30 Lateral Flexion Right 30 ROM Limitations Soft Tissue Tightness Comments Crepitus with lateral flexion, extension; no pain Shoulder Goniometric Range of Motion Shoulder R shoulder PROM Flexion 175 Abduction 175 External Rotation at 90 degrees 70 Abduction External Rotation at 45 degrees 65 Abduction Internal Rotation 80 Comments Min discomfort with end range ER L shoulder AROM Testing Position Sitting Flexion 165 Abduction 170 External Rotation at 90 degrees 60 Abduction External Rotation at 45 degrees 50 Abduction External Rotation at 0 degrees Abduction 40 Internal Rotation 80 R shoulder AROM Testing Position Sitting Flexion 170 Abduction 172 External Rotation at 90 degrees 70 Abduction External Rotation at 45 degrees 60 Abduction External Rotation at 0 degrees Abduction 40 Internal Rotation 80 Comments pain with 45 deg abd (08/21) PT-OP-L Special Tests Start: 09/26/23 16:19 Freq: Status: Active Protocol: Document 09/27/23 07:29 NM (Rec: 09/27/23 08:17 NM [id number]) Special Tests Cervical Spine Special Tests Distraction Test Results - Spurling's Test Test Results - Shoulder Special Tests IR/Horizontal ADD Impingement Test Results + Mercedes's Biceps Test Results + Comments painful, no loss of strength Speed's Biceps Test Results + Whitt Tho Impingement Test Results + Lift-Off Rotator Cuff Test Results + Comments painful, able to perform with AROM and against minimal resistance ER lag (rotator cuff) Test Results - Empty Can Test Results + Comments Min pain but reports full can worse PT-OP-M Strength Start: 09/26/23 16:19 Freq: Status: Active Protocol: Document 09/27/23 07:29 NM (Rec: 09/27/23 08:17 NM [id number]) Scapula Strength Scapula Manual Muscle Testing Left Elevation (C4) 4+ Good+ Adduction 4+ Good+ Abduction 4+ Good+ Depression 4+ Good+ Right Elevation (C4) 4 Good Adduction 4 Good Abduction 4 Good Depression 4 Good Comments Minimal pain with resisted testing; no limits ROM Shoulder Strength Shoulder Manual Muscle Testing Left shoulder Flexion 5 Normal Extension 5 Normal Abduction (C5) 5 Normal Adduction 5 Normal External Rotation 5 Normal Internal Rotation 5 Normal Horizontal Abduction 5 Normal Horizontal Adduction 5 Normal Right shoulder Flexion 4 Good Extension 5 Normal Abduction (C5) 4+ Good+ External Rotation 4 Good Internal Rotation 4 Good Horizontal Abduction 4 Good Horizontal Adduction 4 Good Comments Moderate pain with resisted ER ; minimal pain with resisted flexion, IR, abduction Elbow/Forearm Strength Elbow and Forearm Manual Muscle Testing Left Flexion (C6) 5 Normal Extension (C7) 5 Normal Right Flexion (C6) 5 Normal Extension (C7) 5 Normal Comments No pain with resisted flexion PT-OP-Q Treatments Start: 09/26/23 16:19 Freq: Status: Active Protocol: Document 10/22/23 07:31 NM (Rec: 10/22/23 08:17 NM [id number]) Therapeutic Exercises Supine Exercises pectoralis stretch Supine Exercise Name 1. pec stretch, 2. snow angels (165 deg), 3. T's, 4. W's Side bilateral Resistance 3# db ea Equipment Used foam roller Reps/Minutes 1. 60 total, 2-4. 2x8 Comments reports good stretch; cued controlled motion thoracic extension Supine Exercise Name with overhead flexion Side bilateral Resistance 3# db Equipment Used foam roller Reps/Minutes 1x10 Comments reports good stretch, improved thoracic mobility Sidelying Exercises sidelying abduction Sidelying Exercise Name FROM Side right Resistance 5# db Reps/Minutes 1x10 Comments prn tactile cues for rhomboid and no winging return sidelying shoulder external rotation Side right Resistance 5# db Equipment Used towel btwn arm/body Reps/Minutes 1x10 ea Comments reports no irritation at ant shldr sidelying flexion Sidelying Exercise Name to 160 deg Side right Resistance 5# db Reps/Minutes 1x10 ea Comments cued post scap setting, prn facilitation at scap to prevent winging Standing Exercises B ER + shldr flex Standing Exercise Name trial: for RTC stabilization Side bilateral Resistance lvl 3 tb Reps/Minutes 1x12 Comments pain free; progress next session dynamic stabilization Standing Exercise Name trialed in PT: ball toss on wall at 90 deg abd/90 deg ER Side right Resistance small green ball Equipment Used wall at 90 deg abd/ER Reps/Minutes 2x30 Comments good form, reports no pain dynamic hug Standing Exercise Name trialed in PT: for serratus anterior Side bilateral Resistance lvl 5 tb Reps/Minutes 2x12 Comments cued shoulder relax, limit range into retract to prevent ant shldr shira R IR Side right Resistance AROM approx T10 Equipment Used discussed use towel progress range awareness no winging and good posture Reps/Minutes 2x30 Comments continues to be pain free, reports good stretch body blade Standing Exercise Name review next time ABD ER Side right Resistance purple tb Reps/Minutes 2x10 Comments reports no impingement, good form ABD IR & ecc ER Standing Exercise Name ABD IR with ecc ER Side right Resistance TB purple #6 Equipment Used cued just below 90 deg abd to limit min impinge today Reps/Minutes 2x10 Comments good form; min impingement at 90 deg Manual Therapy Treatment Soft Tissue Mobilization cervical spine Body Location paraspinals, UT, scalene, SCM Mobilization Type Oscillations,Rolling,Sustained Pressure Intensity/Depth Moderate Body Position Sidelying Comments Continues with increased restriction at R UT and paraspinals but improved. 1st rib elevated Joint Mobilizations R AC joint Direction post on scapular spine, ant on clavicle Grade III Body Position Sidelying Reps/Duration 1x10 ea Comments To increase joint space, pain reduction for improved overhead mobility. Monitored for pain, none reported. Improved anterior clavicle mobility since last session 1st rib Joint R 1st rib Direction caudal Grade III Body Position Sidelying Reps/Duration 1x10 Comments after cervical spine STM Self-Care/Home Management Treatment Education Patient Education Home Exercise Program,Pain Management Other Education 2 minutes- Educated on ice to decrease inflammation with increased use due to home DIY and moving; educated on activity modification as able for pain management. HEP: dynamic hug, B ER + shldr flex PT-OP-T Assessment and Plan Start: 09/26/23 16:19 Freq: Status: Active Protocol: Document 10/22/23 07:31 NM (Rec: 10/22/23 08:17 NM [id number]) Physical Therapy Assessment Goals Five Impairment activity Short Term Goal (STG) Pt will report at least 30% return to prior level of activity in order to demonstrate improved QOL, activity tolerance, and pain management STG Duration 4 weeks Skilled Nursing Goal (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 LTG Duration 8 weeks Four Impairment strength Impairment R shoulder strength grossly 4/ 5 for ER, IR, and flexion Parakeet Raiser Goal (LTG) Pt will improve R shoulder gross MMT to at least 4+/5 with pain <2/10 in order to demonstrate improved tolerance for activity, ADLs. LTG Duration 8 weeks Three Impairment periscapular strength Impairment grossly 4/5 Skilled Nursing Goal (LTG) Pt will improve periscapular strength to at least 4+/5 without compensation in order to demonstrate increased scapular control during arm elevation LTG Duration 8 weeks Two Impairment AROM Impairment Apley IR scratch test: T12 Short Term Goal (STG) Pt will improve R Apley IR scratch test AROM to at least T10 in order to demonstrate improved AROM for ADLs. STG Duration 4 weeks Parakeet Raiser Goal (LTG) Pt will improve R Apley IR scratch test AROM to at least T8 in order to demonstrate improved AROM for ADLs, comparable to L Apley. LTG Duration 8 weeks One Impairment quickdash Impairment quickdash 18% Parakeet Raiser Goal (LTG) Pt will decrease quickdash score by at least 9% in order to demonstrate improved function and QOL LTG Duration 8 weeks Assessment Summary Assessment Pt tolerated treatment well and demos improved scapular control with sidelying and standing arm elevation. Pt demos impingement signs with IR in 90 deg abduction only, none with ER. Progressed to dynamic stabilization using ball toss on wall, ER with shoulder flexion, and dynamic hug. Requires cues for posterior scapular setting prior to lifting or arm elevation for improved scapular biomechanics. Pt painfree with most activities despite reports of shoulder irritation prior to arrival. Manual treatment to limit cervical spine soft tissue restrictions and improve R AC joint mobility/1st rib mobility. Compared to previous sessions, pt with improved 1st rib depression and AC joint spacing. Educated on modalities for pain relief, rest as able, activity modification. Pt would benefit from skilled PT for R shoulder mechanics and stabilization in order to decrease pain symptoms and return to PLOF. Physical Therapy Plan Frequency and Duration Frequency of Treatment 2x/Week Duration of treatment (weeks) 8 Plan of Care Start Date 09/27/23 Plan of Care End Date 11/22/23 Therapeutic Interventions Therapeutic Interventions Aquatic Therapy,Coordination Training,Home Exercise Program ,Joint Mobilizations,Manual Therapy,Neuromuscular Re- education,Orthotic/Prosthetic Management,Patient/Caregiver Education,Self-Care/Home Management,Sensory Integration ,Soft Tissue Mobilization, Taping,Therapeutic Activities, Therapeutic Exercises Modalities Cold Pack/Ice Massage,Electric Stimulation,Hot Packs, Traction- Mechanical, Ultrasound,Vasopneumatic Devices Other Referrals/Consults Referrals/Consults Recommended Recommend MRI and referral to ortho depending on pt progression with conservative treatment Next Visit Focus/Plan Next Note Type Treatment Note Next Visit Plan PN in 4 visits. REview standing resisted ABD ER and eccentric ER, Scalene/SCM and IR stretches for progression OH mobility. Next session: retry body blade , ball at wall 90 deg, progress ER/IR at 90 deg, manual prn, scaption/front/ lateral raises depending on tolerance (low weight and progress), dynamic hug POC: Continue periscapular and Serratus Press strengthening from close into open chain: TB and body blade /c scap mechanics. Progress as higher level depending on pain, prone abd up to 90 ER/IR ~ throwing Review Cervical spine STM, stretching as needed; Progress prone ITYW as tolerated, pec stretch, thoracic mobility and strengthening. Lower/Middle trap activation gentle RTC strengthening as able, scapular mechanics *be aware of bicep irritation
--- NOTE | 2023-10-29 08:20 | PT.OTN ---
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 He currently had dx of impingement, likely from overuse. Recently received cortisone injection 3 weeks ago and is on anti- inflammatories, which helps. 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 Reports pain is most noticeable when lifting, driving. Has hx of R rotator cuff repair 20 years ago; states this feels the same. No MRI, but did an x-ray without conclusive results. Trying conservative treatment. Pt lifts weights every day but has decreased (previously power lifting, body weight lifting). 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 Worse with throwing, overhead pushing (pull ups are ok). 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 Current Functional Impairments (Reported) Functional Limitations- Work/School limitations in participating in PE (teacher) Functional Limitations- Recreation/ limitations in throwing, Hobbies lifting weights, exercising; no mountain biking due to pain Functional Limitations- Other pain with sleeping PT-OP-C Subjective Start: 09/26/23 16:19 Freq: Status: Active Protocol: Document 10/29/23 07:30 SP (Rec: 10/29/23 08:46 SP [id number]) OP-PT Subjective Patient Comments Patient Comments Pt stated doing alright, hav PT-OP-E Functional Tests Start: 09/26/23 16:19 Freq: Status: Active Protocol: Document 09/27/23 07:29 NM (Rec: 09/27/23 08:17 NM [id number]) Functional Tests Apley's Scratch Test Action 1- Left post cuff Action 1- Right post cuff, min discomfort Action 2- Left T5 Action 2- Right T4, min discomfort (1/10) Action 3- Left T7 Action 3- Right T12 (most provocative, /10) PT-OP-F Manual Assessment Start: 09/26/23 16:19 Freq: Status: Active Protocol: Document 09/27/23 07:29 NM (Rec: 09/27/23 18:19 NM [id number]) Manual Assessments Soft Tissue Assessment Soft Tissue Mobility Assessment Increased tone of R upper trapezius, levator scapula, R cervical spine paraspinals. Restrictions of posterior cuff muscles, pectorals Joint Mobility Assessment Joint Mobility Assessment Anterior position R humeral head. Full bilateral shoulder AROM into flexion and abduction, IR. Limited shoulder ER AROM, flora with increased abduction. B scapulae 2 from spine. Delayed R scapulohumeral rhythm with arm elevation. Decreased R AC joint space, elevated R 1st rib PT-OP-H Neuro Start: 09/26/23 16:19 Freq: Status: Active Protocol: Document 09/27/23 07:29 NM (Rec: 09/27/23 18:19 NM [id number]) Sensation Evaluation Gross Sensation Gross Sensation WNL Comments Summary Comments BUE equally intact to light touch sensation PT-OP-J Posture/Palpation/Skin Start: 09/26/23 16:19 Freq: Status: Active Protocol: Document 09/27/23 07:29 NM (Rec: 09/27/23 18:19 NM [id number]) Posture Evaluation Position Standing Evaluation View posterior, lateral Head/C-Spine Posture Forward Head T-Spine Posture Neutral L-Spine Posture Decreased Lordosis Shoulder Posture (L) Rounded,(R) Rounded Scapula Posture (L) Protracted,(R) Protracted, (R) Elevated Arm Posture (L) Internally Rotated,(R) Internally Rotated Pelvis Posture Neutral Weight Distribution Balanced Hip Posture (L) Neutral,(R) Neutral Knee Posture (L) Genu Valgus,(R) Genu Valgus Patellar Posture (L) Superior,(R) Superior Ankle/Foot Posture (L) Neutral,(R) Neutral Palpation Assessment Location cervical spine Palpation Location paraspinals, upper trap, levator scapula Palpation Findings Soft Tissue Tightness,Spasm Palpation Details Spasm R upper trapezius, levator scapula, paraspinals R shoulder Palpation Location long head biceps, rotator cuff insertion, posterior cuff, pectoral Palpation Findings Soft Tissue Tightness, Tenderness Palpation Details Tenderness along long head biceps, rotator cuff insertion . Soft tissue tightness of rotator cuff muscles, pectorals PT-OP-K Range of Motion Start: 09/26/23 16:19 Freq: Status: Active Protocol: Document 09/27/23 07:29 NM (Rec: 09/27/23 08:17 NM [id number]) Cervical Spine Range of Motion Cervical Spine Active Degrees Testing Position Sitting Flexion 65 Extension 45 Rotation Left 80 Rotation Right 83 Lateral Flexion Left 30 Lateral Flexion Right 30 ROM Limitations Soft Tissue Tightness Comments Crepitus with lateral flexion, extension; no pain Shoulder Goniometric Range of Motion Shoulder R shoulder PROM Flexion 175 Abduction 175 External Rotation at 90 degrees 70 Abduction External Rotation at 45 degrees 65 Abduction Internal Rotation 80 Comments Min discomfort with end range ER L shoulder AROM Testing Position Sitting Flexion 165 Abduction 170 External Rotation at 90 degrees 60 Abduction External Rotation at 45 degrees 50 Abduction External Rotation at 0 degrees Abduction 40 Internal Rotation 80 R shoulder AROM Testing Position Sitting Flexion 170 Abduction 172 External Rotation at 90 degrees 70 Abduction External Rotation at 45 degrees 60 Abduction External Rotation at 0 degrees Abduction 40 Internal Rotation 80 Comments pain with 45 deg abd (08/21) PT-OP-L Special Tests Start: 09/26/23 16:19 Freq: Status: Active Protocol: Document 09/27/23 07:29 NM (Rec: 09/27/23 08:17 NM [id number]) Special Tests Cervical Spine Special Tests Distraction Test Results - Spurling's Test Test Results - Shoulder Special Tests IR/Horizontal ADD Impingement Test Results + Mercedes's Biceps Test Results + Comments painful, no loss of strength Speed's Biceps Test Results + Whitt Tho Impingement Test Results + Lift-Off Rotator Cuff Test Results + Comments painful, able to perform with AROM and against minimal resistance ER lag (rotator cuff) Test Results - Empty Can Test Results + Comments Min pain but reports full can worse PT-OP-M Strength Start: 09/26/23 16:19 Freq: Status: Active Protocol: Document 09/27/23 07:29 NM (Rec: 09/27/23 08:17 NM [id number]) Scapula Strength Scapula Manual Muscle Testing Left Elevation (C4) 4+ Good+ Adduction 4+ Good+ Abduction 4+ Good+ Depression 4+ Good+ Right Elevation (C4) 4 Good Adduction 4 Good Abduction 4 Good Depression 4 Good Comments Minimal pain with resisted testing; no limits ROM Shoulder Strength Shoulder Manual Muscle Testing Left shoulder Flexion 5 Normal Extension 5 Normal Abduction (C5) 5 Normal Adduction 5 Normal External Rotation 5 Normal Internal Rotation 5 Normal Horizontal Abduction 5 Normal Horizontal Adduction 5 Normal Right shoulder Flexion 4 Good Extension 5 Normal Abduction (C5) 4+ Good+ External Rotation 4 Good Internal Rotation 4 Good Horizontal Abduction 4 Good Horizontal Adduction 4 Good Comments Moderate pain with resisted ER ; minimal pain with resisted flexion, IR, abduction Elbow/Forearm Strength Elbow and Forearm Manual Muscle Testing Left Flexion (C6) 5 Normal Extension (C7) 5 Normal Right Flexion (C6) 5 Normal Extension (C7) 5 Normal Comments No pain with resisted flexion PT-OP-Q Treatments Start: 09/26/23 16:19 Freq: Status: Active Protocol: Document 10/29/23 07:30 SP (Rec: 10/29/23 08:46 SP [id number]) Therapeutic Exercises Supine Exercises serratus press Supine Exercise Name trialed Resistance 25# DB Equipment Used over foam roller Reps/Minutes x10 each Comments feels fine, tactile feedback good scap form pectoralis stretch Supine Exercise Name 1. pec stretch, 2. snow angels (165 deg), 3. T's, 4. W's 5. IR/ER Side bilateral Resistance 5# db ea Equipment Used foam roller Reps/Minutes 1. 60 total, 2-4. 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 Standing Exercise Name trialed in PT Side right Resistance 3>4 plates Reps/Minutes x10 Comments cued scap retraction/ depression end range lift & eccentric initial lower upright rows Standing Exercise Name trialed in PT Side bilateral Resistance 4 plates Reps/Minutes x10 Comments cued scap retraction/ depression end range lift & eccentric initial lower dynamic stabilization Standing Exercise Name ball toss on wall at 90 deg abd/90 deg ER Side right Resistance small green ball Equipment Used wall at 90 deg abd/ER Reps/Minutes 2x30 Comments good form, reports no pain dynamic hug Standing Exercise Name for serratus anterior Side bilateral Resistance lvl 5 tb Reps/Minutes 2x12 Comments cued shoulder relax, limit range into retract to prevent ant shldr shira R IR Standing Exercise Name press out away from body Side right Resistance AROM approx T19 Equipment Used discussed use towel progress range awareness no winging and good posture Reps/Minutes 2x30, press out x5 reps Comments continues to be pain free, reports good stretch body blade Standing Exercise Name serratus punch, abd 90* f/b, [place] and ff 90* serratus ab/add Reps/Minutes 2x30 Manual Therapy Treatment Soft Tissue Mobilization cervical spine Body Location UT, LS, scalene, SOR Mobilization Type Oscillations,Rolling,Sustained Pressure Intensity/Depth Moderate Body Position Sidelying Comments decreased tension RUT post MWM shld elevation distal LS and breath exhale scalene Joint Mobilizations R AC joint Direction post on scapular spine, ant on clavicle Grade II Body Position Supine Reps/Duration 1x10 ea Comments To increase joint space, pinch reduction for improved overhead mobility. Improved anterior clavicle mobility. 1st rib Joint R 1st rib Direction caudal / c exhale and FF Grade II Body Position Sidelying Reps/Duration 1x10 Comments after cervical spine STM PT-OP-T Assessment and Plan Start: 09/26/23 16:19 Freq: Status: Active Protocol: Document 10/29/23 07:30 SP (Rec: 10/29/23 08:46 SP [id number]) Physical Therapy Assessment Goals Five Impairment activity Short Term Goal (STG) Pt will report at least 30% return to prior level of activity in order to demonstrate improved QOL, activity tolerance, and pain management STG Duration 4 weeks Assisted Goal (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 LTG Duration 8 weeks Four Impairment strength Impairment R shoulder strength grossly 4/ 5 for ER, IR, and flexion Transfer Clerk Goal (LTG) Pt will improve R shoulder gross MMT to at least 4+/5 with pain <2/10 in order to demonstrate improved tolerance for activity, ADLs. LTG Duration 8 weeks Three Impairment periscapular strength Impairment grossly 4/5 Assisted Goal (LTG) Pt will improve periscapular strength to at least 4+/5 without compensation in order to demonstrate increased scapular control during arm elevation LTG Duration 8 weeks Two Impairment AROM Impairment Apley IR scratch test: T12 Short Term Goal (STG) Pt will improve R Apley IR scratch test AROM to at least T10 in order to demonstrate improved AROM for ADLs. STG Duration 4 weeks Transfer Clerk Goal (LTG) Pt will improve R Apley IR scratch test AROM to at least T8 in order to demonstrate improved AROM for ADLs, comparable to L Apley. LTG Duration 8 weeks One Impairment quickdash Impairment quickdash 18% Transfer Clerk Goal (LTG) Pt will decrease quickdash score by at least 9% in order to demonstrate improved function and QOL LTG Duration 8 weeks Assessment Summary Assessment Pt reported decrease pinch feeling anterior AC jt post manual and corrections scap retraction/depression during upright rows and lawnmower pull. Stated R shld feels little cautious end range FF first 2 reps but slow, elbow more extended post cues, increase of 5# DB performed more supported. Pt reports pnfree end tx and will add upright and lawnmower rows to HEP, has wts and cable system at home. Physical Therapy Plan Frequency and Duration Frequency of Treatment 2x/Week Duration of treatment (weeks) 8 Plan of Care Start Date 09/27/23 Plan of Care End Date 11/22/23 Therapeutic Interventions Therapeutic Interventions Aquatic Therapy,Coordination Training,Home Exercise Program ,Joint Mobilizations,Manual Therapy,Neuromuscular Re- education,Orthotic/Prosthetic Management,Patient/Caregiver Education,Self-Care/Home Management,Sensory Integration ,Soft Tissue Mobilization, Taping,Therapeutic Activities, Therapeutic Exercises Modalities Cold Pack/Ice Massage,Electric Stimulation,Hot Packs, Traction- Mechanical, Ultrasound,Vasopneumatic Devices Other Referrals/Consults Referrals/Consults Recommended Recommend MRI and referral to ortho depending on pt progression with conservative treatment Next Visit Focus/Plan Next Note Type Treatment Note Next Visit Plan PN in next 10/30 or 4th visit . REview upright rows, lawnmower pull. Scalene/SCM and IR stretches for progression OH mobility. Next session: retry body blade , ball at wall 90 deg, progress ER/IR at 90 deg, manual prn, scaption/front/ lateral raises depending on tolerance (low weight and progress), dynamic hug POC: Continue periscapular and Serratus Press strengthening from close into open chain: TB and body blade /c scap mechanics. Progress as higher level depending on pain, prone abd up to 90 ER/IR ~ throwing Review Cervical spine STM, stretching as needed; Progress prone ITYW as tolerated, pec stretch, thoracic mobility and strengthening. Lower/Middle trap activation gentle RTC strengthening as able, scapular mechanics *be aware of bicep irritation
--- NOTE | 2023-10-31 12:40 | PT.OTN ---
Current Diagnoses Pain in right shoulder (10/31/23) Other specified joint disorders, right shoulder (10/31/23) Physical Therapy Treatment Note PT-OP-A Visit Information Start: 09/26/23 16:19 Freq: Status: Active Protocol: Document 10/31/23 07:31 NM (Rec: 10/31/23 08:16 NM [id number]) Out-Patient Physical Therapy Visit Information Visit Information Visit Type Progress Note Visit Start Time 07:30 Visit Stop Time 08:10 Visit Number 9 PT-OP-B Current Condition Start: 09/26/23 16:19 Freq: Status: Active Protocol: Document 09/27/23 07:29 NM (Rec: 09/27/23 08:17 NM [id number]) Current Condition History of Current Condition Onset Date 3-4 months ago Current Complaints pain with throwing, resting pain History of Current Condition Pt presents with R shoulder pain beginning without known NOE several months ago. He currently had dx of impingement, likely from overuse. Recently received cortisone injection 3 weeks ago and is on anti- inflammatories, which helps. 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 Reports pain is most noticeable when lifting, driving. Has hx of R rotator cuff repair 20 years ago; states this feels the same. No MRI, but did an x-ray without conclusive results. Trying conservative treatment. Pt lifts weights every day but has decreased (previously power lifting, body weight lifting). 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 Worse with throwing, overhead pushing (pull ups are ok). 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 He reports that he is compliant with HEP and activity modification (e.g. not throwing with shoulder). Feels like R shoulder is still knotted up all the time PT-OP-E Functional Tests Start: 09/26/23 16:19 Freq: Status: Active Protocol: Document 09/27/23 07:29 NM (Rec: 09/27/23 08:17 NM [id number]) Functional Tests Apley's Scratch Test Action 1- Left post cuff Action 1- Right post cuff, min discomfort Action 2- Left T5 Action 2- Right T4, min discomfort (/10) Action 3- Left T7 Action 3- Right T12 (most provocative, /10) PT-OP-F Manual Assessment Start: 09/26/23 16:19 Freq: Status: Active Protocol: Document 09/27/23 07:29 NM (Rec: 09/27/23 18:19 NM [id number]) Manual Assessments Soft Tissue Assessment Soft Tissue Mobility Assessment Increased tone of R upper trapezius, levator scapula, R cervical spine paraspinals. Restrictions of posterior cuff muscles, pectorals Joint Mobility Assessment Joint Mobility Assessment Anterior position R humeral head. Full bilateral shoulder AROM into flexion and abduction, IR. Limited shoulder ER AROM, flora with increased abduction. B scapulae 2 from spine. Delayed R scapulohumeral rhythm with arm elevation. Decreased R AC joint space, elevated R 1st rib PT-OP-H Neuro Start: 09/26/23 16:19 Freq: Status: Active Protocol: Document 09/27/23 07:29 NM (Rec: 09/27/23 18:19 NM [id number]) Sensation Evaluation Gross Sensation Gross Sensation WNL Comments Summary Comments BUE equally intact to light touch sensation PT-OP-J Posture/Palpation/Skin Start: 09/26/23 16:19 Freq: Status: Active Protocol: Document 09/27/23 07:29 NM (Rec: 09/27/23 18:19 NM [id number]) Posture Evaluation Position Standing Evaluation View posterior, lateral Head/C-Spine Posture Forward Head T-Spine Posture Neutral L-Spine Posture Decreased Lordosis Shoulder Posture (L) Rounded,(R) Rounded Scapula Posture (L) Protracted,(R) Protracted, (R) Elevated Arm Posture (L) Internally Rotated,(R) Internally Rotated Pelvis Posture Neutral Weight Distribution Balanced Hip Posture (L) Neutral,(R) Neutral Knee Posture (L) Genu Valgus,(R) Genu Valgus Patellar Posture (L) Superior,(R) Superior Ankle/Foot Posture (L) Neutral,(R) Neutral Palpation Assessment Location cervical spine Palpation Location paraspinals, upper trap, levator scapula Palpation Findings Soft Tissue Tightness,Spasm Palpation Details Spasm R upper trapezius, levator scapula, paraspinals R shoulder Palpation Location long head biceps, rotator cuff insertion, posterior cuff, pectoral Palpation Findings Soft Tissue Tightness, Tenderness Palpation Details Tenderness along long head biceps, rotator cuff insertion . Soft tissue tightness of rotator cuff muscles, pectorals PT-OP-K Range of Motion Start: 09/26/23 16:19 Freq: Status: Active Protocol: Document 10/31/23 07:31 NM (Rec: 10/31/23 08:16 NM [id number]) Shoulder Goniometric Range of Motion Shoulder R shoulder AROM Testing Position Sitting Flexion 170 Abduction 172 External Rotation at 90 degrees 70 Abduction External Rotation at 45 degrees 60 Abduction External Rotation at 0 degrees Abduction 40 Internal Rotation 80 Comments pain with 45 deg abd (08/21) 10/31/23: 175 flex and abd, with impingement symptoms at end range, 85 deg at 90 deg abd, IR apley T10 PT-OP-L Special Tests Start: 09/26/23 16:19 Freq: Status: Active Protocol: Document 09/27/23 07:29 NM (Rec: 09/27/23 08:17 NM [id number]) Special Tests Cervical Spine Special Tests Distraction Test Results - Spurling's Test Test Results - Shoulder Special Tests IR/Horizontal ADD Impingement Test Results + Yahirrgrayson's Biceps Test Results + Comments painful, no loss of strength Speed's Biceps Test Results + Whitt Tho Impingement Test Results + Lift-Off Rotator Cuff Test Results + Comments painful, able to perform with AROM and against minimal resistance ER lag (rotator cuff) Test Results - Empty Can Test Results + Comments Min pain but reports full can worse PT-OP-M Strength Start: 09/26/23 16:19 Freq: Status: Active Protocol: Document 10/31/23 07:31 NM (Rec: 10/31/23 08:16 NM [id number]) Scapula Strength Scapula Manual Muscle Testing Right Elevation (C4) 4 Good Adduction 4 Good Abduction 4 Good Depression 4 Good Comments Minimal pain with resisted testing; no limits ROM 10/31/23: 4+/5 for elevation, add, depression; 4/5 for abduction 2/10 pain Shoulder Strength Shoulder Manual Muscle Testing Right shoulder Flexion 4 Good Extension 5 Normal Abduction (C5) 4+ Good+ External Rotation 4 Good Internal Rotation 4 Good Horizontal Abduction 4 Good Horizontal Adduction 4 Good Comments Moderate pain with resisted ER ; minimal pain with resisted flexion, IR, abduction 10/31/23: 4+/5 for all, min pain with resisted ER and flexion initially PT-OP-Q Treatments Start: 09/26/23 16:19 Freq: Status: Active Protocol: Document 10/31/23 07:31 NM (Rec: 10/31/23 08:16 NM [id number]) Therapeutic Exercises Prone Exercises ER Prone Exercise Name 1. abd 90 deg, 2. catches abd 90 deg ER Side right Resistance 3# DB, 2# tball Equipment Used towel roll under humerus Reps/Minutes 1. 2x10 reps each, 2.2x15 catches Comments pain free Sitting Exercises cervical spine stretches Sitting Exercise Name SCM/scalene stretch Side bilateral Equipment Used opposite hand tensioning at neck/clavicle Reps/Minutes 2x30 Comments reports stretch, pain free Standing Exercises PNF Standing Exercise Name D2 flex, D1 ext with rotation Side right Resistance 2 plate cable Reps/Minutes 2x10 ea Comments pain free, good scap setting, cued no UT as fatigue IR liftoff Standing Exercise Name trialed in PT Side right Resistance AROM Reps/Minutes 1x5 Comments reports 2/10 pain LH biceps, d /c mirror silverer pulls Side right Resistance 4 plates Reps/Minutes 2x12, pain free Comments cued scap retraction/ depression end range lift & eccentric initial lower upright rows Side bilateral Resistance 4 plates Reps/Minutes 2x12, pain free Comments cued scap retraction/ depression end range lift & eccentric initial lower R IR Standing Exercise Name 1. stretch, 2. IR at 90 deg abd to wall Side right Resistance AROM approx T9 Reps/Minutes 1. 2x30, 2. 2x10 (pain free)- limited IR at end range Comments reports min pain in ant shoulder, reports good stretch , cued no winging body blade Standing Exercise Name serratus punch, FF and abd to below end range ~150 deg Reps/Minutes 2x30 Comments pain free Other Exercises self soft tissue mobilization Other Exercise Name rotator cuff, cervical spine Side right Equipment Used tennis ball Reps/Minutes 2' PT-OP-T Assessment and Plan Start: 09/26/23 16:19 Freq: Status: Active Protocol: Document 10/31/23 07:31 NM (Rec: 10/31/23 08:16 NM [id number]) Physical Therapy Assessment Goals Five Impairment activity Short Term Goal (STG) Pt will report at least 30% return to prior level of activity in order to demonstrate improved QOL, activity tolerance, and pain management 10/31/23: 50% reported back to PLOF STG Duration 4 weeks MET Computer Numerical Control Programmer Goal (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 LTG Duration 8 weeks Four Impairment strength Impairment R shoulder strength grossly 4/ 5 for ER, IR, and flexion Prison Goal (LTG) Pt will improve R shoulder gross MMT to at least 4+/5 with pain <2/10 in order to demonstrate improved tolerance for activity, ADLs. 10/31/23: 4+/5 with 2/10 pain with ER and initiating flexion LTG Duration 8 weeks PROGRESSING Three Impairment periscapular strength Impairment grossly 4/5 Computer Numerical Control Programmer Goal (LTG) Pt will improve periscapular strength to at least 4+/5 without compensation in order to demonstrate increased scapular control during arm elevation 10/31/23: 4+/5 for elevation, add, depression; 4/5 for abduction 2/10 pain LTG Duration 8 weeks PROGRESSING Two Impairment AROM Impairment Apley IR scratch test: T12 Short Term Goal (STG) Pt will improve R Apley IR scratch test AROM to at least T10 in order to demonstrate improved AROM for ADLs. 10/31/23: T10, not painful but cramping STG Duration 4 weeks MET Computer Numerical Control Programmer Goal (LTG) Pt will improve R Apley IR scratch test AROM to at least T8 in order to demonstrate improved AROM for ADLs, comparable to L Apley. LTG Duration 8 weeks One Impairment quickdash Impairment quickdash 18% Computer Numerical Control Programmer Goal (LTG) Pt will decrease quickdash score by at least 9% in order to demonstrate improved function and QOL 10/31/23: 15.9% LTG Duration 8 weeks Progress Towards Goals Progress Towards Goals Progressing Toward Goals Progress Comments Meeting STGs, progressing toward LTGs Assessment Summary Assessment Pt reports overall decreases in R shoulder pain, particularly in AC Joint but he continues to have discomfort in R anterior shoulder near bicep tendon. Pt continues to have pain only in end range arm elevation, reduced in frequency and pain levels since IE. Pt also has limited shoulder IR AROM, partially limited by lat tightness, which would benefit from further mobilization. Continued with strengthening into overhead elevation with emphasis on scapular control and rotator cuff stabilization . Pt cued to limit scapular winging with lifts and to decrease anterior humeral position with scapular setting and posterior positioning. Pt requires consistent cues, which places increased strain on anterior shoulder. Pt has been seen x8 visits for R shoulder pain since August 2023. He is progressing well toward goals and with managing pain levels. Pt continues to lack pain free end range shoulder elevation and demos decreased scapular control with loading or multidirectional movement. Pt reports that he has modified activity to limit aggravation of long head biceps tendon, including throwing. Overall, he states that his pain levels with ADLs, sleeping, and activity has improved; reports that he is back to 50% of PLOF with the modified activities. Pt would benefit from skilled PT for progressive R rotator cuff and periscapular strengthening, in addition to R shoulder mobilization at end range to reduce pain symptoms and return to PLOF. Physical Therapy Plan Frequency and Duration Frequency of Treatment 2x/Week Duration of treatment (weeks) 8 Plan of Care Start Date 09/27/23 Plan of Care End Date 11/22/23 Therapeutic Interventions Therapeutic Interventions Aquatic Therapy,Coordination Training,Home Exercise Program ,Joint Mobilizations,Manual Therapy,Neuromuscular Re- education,Orthotic/Prosthetic Management,Patient/Caregiver Education,Self-Care/Home Management,Sensory Integration ,Soft Tissue Mobilization, Taping,Therapeutic Activities, Therapeutic Exercises Modalities Cold Pack/Ice Massage,Electric Stimulation,Hot Packs, Traction- Mechanical, Ultrasound,Vasopneumatic Devices Other Referrals/Consults Referrals/Consults Recommended Recommend MRI and referral to ortho depending on pt progression with conservative treatment Next Visit Focus/Plan Next Note Type Treatment Note Next Visit Plan Continue: upright rows, lawnmower pull. Scalene/SCM and IR stretches for progression OH mobility. Trial push up with band, mobilize into IR for improved range Next session: retry body blade , ball at wall 90 deg, progress ER/IR at 90 deg, manual prn, scaption/front/ lateral raises depending on tolerance (low weight and progress), dynamic hug POC: Continue periscapular and Serratus Press strengthening from close into open chain: TB and body blade /c scap mechanics. Progress as higher level depending on pain, prone abd up to 90 ER/IR ~ throwing Review Cervical spine STM, stretching as needed; Progress prone ITYW as tolerated, pec stretch, thoracic mobility and strengthening. Lower/Middle trap activation gentle RTC strengthening as able, scapular mechanics *be aware of bicep irritation
--- NOTE | 2023-11-04 08:13 | PT.OTN ---
Current Diagnoses Pain in right shoulder (11/04/23) Other specified joint disorders, right shoulder (11/04/23) Physical Therapy Treatment Note PT-OP-A Visit Information Start: 09/26/23 16:19 Freq: Status: Active Protocol: Document 11/04/23 07:33 SP (Rec: 11/04/23 08:18 SP [id number]) Out-Patient Physical Therapy Visit Information Visit Information Visit Type Treatment Note Visit Note 09/21 post PN Visit Start Time 07:33 Visit Stop Time 08:13 Visit Number 10 Number of FURNITURE ASSOCIATE Visits 1 Evaluation Information Evaluation Date 09/27/23 PT-OP-B Current Condition Start: 09/26/23 16:19 Freq: Status: Active Protocol: Document 09/27/23 07:29 NM (Rec: 09/27/23 08:17 NM [id number]) Current Condition History of Current Condition Onset Date 3-4 months ago Current Complaints pain with throwing, resting pain History of Current Condition Pt presents with R shoulder pain beginning without known NOE several months ago. He currently had dx of impingement, likely from overuse. Recently received cortisone injection 3 weeks ago and is on anti- inflammatories, which helps. 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 Reports pain is most noticeable when lifting, driving. Has hx of R rotator cuff repair 20 years ago; states this feels the same. No MRI, but did an x-ray without conclusive results. Trying conservative treatment. Pt lifts weights every day but has decreased (previously power lifting, body weight lifting). Hx of ache, sharp pain (wide adult live in caregiver), overhead reaching (worse if loaded), sleeping when across chest; reports no changes in mobility and minimal changes in strength. Worse with throwing, overhead pushing (pull ups are ok). 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 PT-OP-E Functional Tests Start: 09/26/23 16:19 Freq: Status: Active Protocol: Document 09/27/23 07:29 NM (Rec: 09/27/23 08:17 NM [id number]) Functional Tests Apley's Scratch Test Action 1- Left post cuff Action 1- Right post cuff, min discomfort Action 2- Left T5 Action 2- Right T4, min discomfort (10) Action 3- Left T7 Action 3- Right T12 (most provocative, 10) PT-OP-F Manual Assessment Start: 09/26/23 16:19 Freq: Status: Active Protocol: Document 09/27/23 07:29 NM (Rec: 09/27/23 18:19 NM [id number]) Manual Assessments Soft Tissue Assessment Soft Tissue Mobility Assessment Increased tone of R upper trapezius, levator scapula, R cervical spine paraspinals. Restrictions of posterior cuff muscles, pectorals Joint Mobility Assessment Joint Mobility Assessment Anterior position R humeral head. Full bilateral shoulder AROM into flexion and abduction, IR. Limited shoulder ER AROM, flora with increased abduction. B scapulae 2 from spine. Delayed R scapulohumeral rhythm with arm elevation. Decreased R AC joint space, elevated R 1st rib PT-OP-H Neuro Start: 09/26/23 16:19 Freq: Status: Active Protocol: Document 09/27/23 07:29 NM (Rec: 09/27/23 18:19 NM [id number]) Sensation Evaluation Gross Sensation Gross Sensation WNL Comments Summary Comments BUE equally intact to light touch sensation PT-OP-J Posture/Palpation/Skin Start: 09/26/23 16:19 Freq: Status: Active Protocol: Document 09/27/23 07:29 NM (Rec: 09/27/23 18:19 NM [id number]) Posture Evaluation Position Standing Evaluation View posterior, lateral Head/C-Spine Posture Forward Head T-Spine Posture Neutral L-Spine Posture Decreased Lordosis Shoulder Posture (L) Rounded,(R) Rounded Scapula Posture (L) Protracted,(R) Protracted, (R) Elevated Arm Posture (L) Internally Rotated,(R) Internally Rotated Pelvis Posture Neutral Weight Distribution Balanced Hip Posture (L) Neutral,(R) Neutral Knee Posture (L) Genu Valgus,(R) Genu Valgus Patellar Posture (L) Superior,(R) Superior Ankle/Foot Posture (L) Neutral,(R) Neutral Palpation Assessment Location cervical spine Palpation Location paraspinals, upper trap, levator scapula Palpation Findings Soft Tissue Tightness,Spasm Palpation Details Spasm R upper trapezius, levator scapula, paraspinals R shoulder Palpation Location long head biceps, rotator cuff insertion, posterior cuff, pectoral Palpation Findings Soft Tissue Tightness, Tenderness Palpation Details Tenderness along long head biceps, rotator cuff insertion . Soft tissue tightness of rotator cuff muscles, pectorals PT-OP-K Range of Motion Start: 09/26/23 16:19 Freq: Status: Active Protocol: Document 10/31/23 07:31 NM (Rec: 10/31/23 08:16 NM [id number]) Shoulder Goniometric Range of Motion Shoulder R shoulder AROM Testing Position Sitting Flexion 170 Abduction 172 External Rotation at 90 degrees 70 Abduction External Rotation at 45 degrees 60 Abduction External Rotation at 0 degrees Abduction 40 Internal Rotation 80 Comments pain with 45 deg abd (08/21) 10/31/23: 175 flex and abd, with impingement symptoms at end range, 85 deg at 90 deg abd, IR apley T10 PT-OP-L Special Tests Start: 09/26/23 16:19 Freq: Status: Active Protocol: Document 09/27/23 07:29 NM (Rec: 09/27/23 08:17 NM [id number]) Special Tests Cervical Spine Special Tests Distraction Test Results - Spurling's Test Test Results - Shoulder Special Tests IR/Horizontal ADD Impingement Test Results + Yergason's Biceps Test Results + Comments painful, no loss of strength Speed's Biceps Test Results + Whitt Tho Impingement Test Results + Lift-Off Rotator Cuff Test Results + Comments painful, able to perform with AROM and against minimal resistance ER lag (rotator cuff) Test Results - Empty Can Test Results + Comments Min pain but reports full can worse PT-OP-M Strength Start: 09/26/23 16:19 Freq: Status: Active Protocol: Document 10/31/23 07:31 NM (Rec: 10/31/23 08:16 NM [id number]) Scapula Strength Scapula Manual Muscle Testing Right Elevation (C4) 4 Good Adduction 4 Good Abduction 4 Good Depression 4 Good Comments Minimal pain with resisted testing; no limits ROM 10/31/23: 4+/5 for elevation, add, depression; 4/5 for abduction 2/10 pain Shoulder Strength Shoulder Manual Muscle Testing Right shoulder Flexion 4 Good Extension 5 Normal Abduction (C5) 4+ Good+ External Rotation 4 Good Internal Rotation 4 Good Horizontal Abduction 4 Good Horizontal Adduction 4 Good Comments Moderate pain with resisted ER ; minimal pain with resisted flexion, IR, abduction 10/31/23: 4+/5 for all, min pain with resisted ER and flexion initially PT-OP-Q Treatments Start: 09/26/23 16:19 Freq: Status: Active Protocol: Document 11/04/23 07:33 SP (Rec: 11/04/23 08:18 SP [id number]) Gym Equipment Shuttle Rebound throwing/eccentric catching RUE Exercise Details 1000g tball Reps/Duration 2x15 Comments proximal bicep discomfort if extends end range abd/er coming forward about mid range . But no pain if keeps just at 90/90 IR/ER. Therapeutic Exercises Prone Exercises ER Prone Exercise Name 1. abd 90 deg, 2. standing: throw/catches abd 90 deg ER Side right Resistance 3# DB, 1000g tball Reps/Minutes 1. 2x10 reps each, 2.2x15 catches Comments pain free Standing Exercises plank BUE/BLE ext Reps/Minutes x10 body blade Standing Exercise Name throwing motion: back then OH and fwd Equipment Used large body blade Reps/Minutes 2x30 Comments pain free PT-OP-R Modalities Start: 09/26/23 16:19 Freq: Status: Active Protocol: Document 11/04/23 07:33 SP (Rec: 11/04/23 08:18 SP [id number]) Ultrasound Therapy Treatment R bicep Patient Position Supine Coupling Medium Ultrasound Gel Applicator Size (cm2) 2cm Intensity Setting (w/cm2) 8 Comments less pain prox at coricoid process 10 min PT-OP-T Assessment and Plan Start: 09/26/23 16:19 Freq: Status: Active Protocol: Document 11/04/23 07:33 SP (Rec: 11/04/23 08:18 SP [id number]) Physical Therapy Assessment Goals Five Impairment activity Short Term Goal (STG) Pt will report at least 30% return to prior level of activity in order to demonstrate improved QOL, activity tolerance, and pain management 10/31/23: 50% reported back to PLOF STG Duration 4 weeks MET Prison Goal (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 LTG Duration 8 weeks Four Impairment strength Impairment R shoulder strength grossly 4/ 5 for ER, IR, and flexion Prison Goal (LTG) Pt will improve R shoulder gross MMT to at least 4+/5 with pain <2/10 in order to demonstrate improved tolerance for activity, ADLs. 10/31/23: 4+/5 with 2/10 pain with ER and initiating flexion LTG Duration 8 weeks PROGRESSING Three Impairment periscapular strength Impairment grossly 4/5 Prison Goal (LTG) Pt will improve periscapular strength to at least 4+/5 without compensation in order to demonstrate increased scapular control during arm elevation 10/31/23: 4+/5 for elevation, add, depression; 4/5 for abduction 2/10 pain LTG Duration 8 weeks PROGRESSING Two Impairment AROM Impairment Apley IR scratch test: T12 Short Term Goal (STG) Pt will improve R Apley IR scratch test AROM to at least T10 in order to demonstrate improved AROM for ADLs. 10/31/23: T10, not painful but cramping STG Duration 4 weeks MET Field Services Manager Goal (LTG) Pt will improve R Apley IR scratch test AROM to at least T8 in order to demonstrate improved AROM for ADLs, comparable to L Apley. LTG Duration 8 weeks One Impairment quickdash Impairment quickdash 18% Field Services Manager Goal (LTG) Pt will decrease quickdash score by at least 9% in order to demonstrate improved function and QOL 10/31/23: 15.9% LTG Duration 8 weeks Assessment Summary Assessment Pt reports little reduction in proximal bicep irritation post ultrasound more than manual. No pain reports with initiated dynamic plank/UE/LE ext, prone resisted ER nor body blade. But still little discomfort proximal bicep with throwing only if winds up in the far back position midrange coming forward. Physical Therapy Plan Frequency and Duration Frequency of Treatment 2x/Week Duration of treatment (weeks) 8 Plan of Care Start Date 09/27/23 Plan of Care End Date 11/22/23 Therapeutic Interventions Therapeutic Interventions Aquatic Therapy,Coordination Training,Home Exercise Program ,Joint Mobilizations,Manual Therapy,Neuromuscular Re- education,Orthotic/Prosthetic Management,Patient/Caregiver Education,Self-Care/Home Management,Sensory Integration ,Soft Tissue Mobilization, Taping,Therapeutic Activities, Therapeutic Exercises Modalities Cold Pack/Ice Massage,Electric Stimulation,Hot Packs, Traction- Mechanical, Ultrasound,Vasopneumatic Devices Other Referrals/Consults Referrals/Consults Recommended Recommend MRI and referral to ortho depending on pt progression with conservative treatment Next Visit Focus/Plan Next Note Type Treatment Note Next Visit Plan Continue: upright rows, lawnmower pull. Scalene/SCM and IR stretches for progression OH mobility. Trial push up with band, mobilize into IR for improved range Next session: retry body blade , ball at wall 90 deg, progress ER/IR at 90 deg, manual prn, scaption/front/ lateral raises depending on tolerance (low weight and progress), dynamic hug POC: Continue periscapular and Serratus Press strengthening from close into open chain: TB and body blade /c scap mechanics. Progress as higher level depending on pain, prone abd up to 90 ER/IR ~ throwing Review Cervical spine STM, stretching as needed; Progress prone ITYW as tolerated, pec stretch, thoracic mobility and strengthening. Lower/Middle trap activation gentle RTC strengthening as able, scapular mechanics *be aware of bicep irritation
--- NOTE | 2023-11-07 08:11 | PT.OTN ---
Current Diagnoses Pain in right shoulder (11/07/23) Other specified joint disorders, right shoulder (11/07/23) Physical Therapy Treatment Note PT-OP-A Visit Information Start: 09/26/23 16:19 Freq: Status: Active Protocol: Document 11/07/23 07:30 SP (Rec: 11/07/23 08:58 SP [id number]) Out-Patient Physical Therapy Visit Information Visit Information Visit Type Treatment Note Visit Note 10/19 post PN Visit Start Time 07:31 Visit Stop Time 08:11 Visit Number 11 Number of ADVANCED DEVELOPER Visits 2 PT-OP-B Current Condition Start: 09/26/23 16:19 Freq: Status: Active Protocol: Document 09/27/23 07:29 NM (Rec: 09/27/23 08:17 NM [id number]) Current Condition History of Current Condition Onset Date 3-4 months ago Current Complaints pain with throwing, resting pain History of Current Condition Pt presents with R shoulder pain beginning without known NOE several months ago. He currently had dx of impingement, likely from overuse. Recently received cortisone injection 3 weeks ago and is on anti- inflammatories, which helps. 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 Reports pain is most noticeable when lifting, driving. Has hx of R rotator cuff repair 20 years ago; states this feels the same. No MRI, but did an x-ray without conclusive results. Trying conservative treatment. Pt lifts weights every day but has decreased (previously power lifting, body weight lifting). 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 Worse with throwing, overhead pushing (pull ups are ok). 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 R UE. PT-OP-E Functional Tests Start: 09/26/23 16:19 Freq: Status: Active Protocol: Document 09/27/23 07:29 NM (Rec: 09/27/23 08:17 NM [id number]) Functional Tests Apley's Scratch Test Action 1- Left post cuff Action 1- Right post cuff, min discomfort Action 2- Left T5 Action 2- Right T4, min discomfort (/10) Action 3- Left T7 Action 3- Right T12 (most provocative, /10) PT-OP-F Manual Assessment Start: 09/26/23 16:19 Freq: Status: Active Protocol: Document 09/27/23 07:29 NM (Rec: 09/27/23 18:19 NM [id number]) Manual Assessments Soft Tissue Assessment Soft Tissue Mobility Assessment Increased tone of R upper trapezius, levator scapula, R cervical spine paraspinals. Restrictions of posterior cuff muscles, pectorals Joint Mobility Assessment Joint Mobility Assessment Anterior position R humeral head. Full bilateral shoulder AROM into flexion and abduction, IR. Limited shoulder ER AROM, flora with increased abduction. B scapulae 2 from spine. Delayed R scapulohumeral rhythm with arm elevation. Decreased R AC joint space, elevated R 1st rib PT-OP-H Neuro Start: 09/26/23 16:19 Freq: Status: Active Protocol: Document 09/27/23 07:29 NM (Rec: 09/27/23 18:19 NM [id number]) Sensation Evaluation Gross Sensation Gross Sensation WNL Comments Summary Comments BUE equally intact to light touch sensation PT-OP-J Posture/Palpation/Skin Start: 09/26/23 16:19 Freq: Status: Active Protocol: Document 09/27/23 07:29 NM (Rec: 09/27/23 18:19 NM [id number]) Posture Evaluation Position Standing Evaluation View posterior, lateral Head/C-Spine Posture Forward Head T-Spine Posture Neutral L-Spine Posture Decreased Lordosis Shoulder Posture (L) Rounded,(R) Rounded Scapula Posture (L) Protracted,(R) Protracted, (R) Elevated Arm Posture (L) Internally Rotated,(R) Internally Rotated Pelvis Posture Neutral Weight Distribution Balanced Hip Posture (L) Neutral,(R) Neutral Knee Posture (L) Genu Valgus,(R) Genu Valgus Patellar Posture (L) Superior,(R) Superior Ankle/Foot Posture (L) Neutral,(R) Neutral Palpation Assessment Location cervical spine Palpation Location paraspinals, upper trap, levator scapula Palpation Findings Soft Tissue Tightness,Spasm Palpation Details Spasm R upper trapezius, levator scapula, paraspinals R shoulder Palpation Location long head biceps, rotator cuff insertion, posterior cuff, pectoral Palpation Findings Soft Tissue Tightness, Tenderness Palpation Details Tenderness along long head biceps, rotator cuff insertion . Soft tissue tightness of rotator cuff muscles, pectorals PT-OP-K Range of Motion Start: 09/26/23 16:19 Freq: Status: Active Protocol: Document 10/31/23 07:31 NM (Rec: 10/31/23 08:16 NM [id number]) Shoulder Goniometric Range of Motion Shoulder R shoulder AROM Testing Position Sitting Flexion 170 Abduction 172 External Rotation at 90 degrees 70 Abduction External Rotation at 45 degrees 60 Abduction External Rotation at 0 degrees Abduction 40 Internal Rotation 80 Comments pain with 45 deg abd (08/21) 10/31/23: 175 flex and abd, with impingement symptoms at end range, 85 deg at 90 deg abd, IR apley T10 PT-OP-L Special Tests Start: 09/26/23 16:19 Freq: Status: Active Protocol: Document 09/27/23 07:29 NM (Rec: 09/27/23 08:17 NM [id number]) Special Tests Cervical Spine Special Tests Distraction Test Results - Spurling's Test Test Results - Shoulder Special Tests IR/Horizontal ADD Impingement Test Results + Yergason's Biceps Test Results + Comments painful, no loss of strength Speed's Biceps Test Results + Whitt Tho Impingement Test Results + Lift-Off Rotator Cuff Test Results + Comments painful, able to perform with AROM and against minimal resistance ER lag (rotator cuff) Test Results - Empty Can Test Results + Comments Min pain but reports full can worse PT-OP-M Strength Start: 09/26/23 16:19 Freq: Status: Active Protocol: Document 10/31/23 07:31 NM (Rec: 10/31/23 08:16 NM [id number]) Scapula Strength Scapula Manual Muscle Testing Right Elevation (C4) 4 Good Adduction 4 Good Abduction 4 Good Depression 4 Good Comments Minimal pain with resisted testing; no limits ROM 10/31/23: 4+/5 for elevation, add, depression; 4/5 for abduction 2/10 pain Shoulder Strength Shoulder Manual Muscle Testing Right shoulder Flexion 4 Good Extension 5 Normal Abduction (C5) 4+ Good+ External Rotation 4 Good Internal Rotation 4 Good Horizontal Abduction 4 Good Horizontal Adduction 4 Good Comments Moderate pain with resisted ER ; minimal pain with resisted flexion, IR, abduction 10/31/23: 4+/5 for all, min pain with resisted ER and flexion initially PT-OP-Q Treatments Start: 09/26/23 16:19 Freq: Status: Active Protocol: Document 11/07/23 07:30 SP (Rec: 11/07/23 08:58 SP [id number]) Therapeutic Exercises Supine Exercises body blade over tball Supine Exercise Name 1. FF, abd, scaption Body blade 2. abd/ER throw/catch Side right Resistance 1. medium blade 2. 1000g red tball Equipment Used bridged over 64 cm tball Reps/Minutes 30 sec x2 various directions Comments pnfree reports Prone Exercises ER Prone Exercise Name abd 90 deg prone Side right Resistance 3# DB (EO table) Reps/Minutes 2x15 reps Comments pain free Y lift off Prone Exercise Name prone plank tajik ball- alternate BUEs Side bilateral Resistance 3#>5# dB Equipment Used large green tajik ball Reps/Minutes 15 each resisistance alternating UEs Comments good form, tiring effort Sidelying Exercises sidelying HABD Sidelying Exercise Name FROM Resistance 7# DB Reps/Minutes 2x10 Comments good form, tiring, pnfree sidelying abduction Sidelying Exercise Name FROM Side right Resistance 5#>7 # db Reps/Minutes 2x10 Comments good form /c added ER and SA into range, tiring, pnfree sidelying flexion Sidelying Exercise Name FROM Side right Resistance 7# db Reps/Minutes 1x10 ea Comments good form, tiring, pnfree Standing Exercises wall walking UEs Standing Exercise Name trialed in PT Resistance TB #3 Equipment Used arms extended Reps/Minutes 20 ft x2 laps Comments reports painfree, tiring effort anterior/top shoulders scaption TB Side right Resistance Tb #3 Reps/Minutes 2x15 Comments reports tiring but not pain if mindful scapular set postioning coming [place] upright rows Standing Exercise Name states doing at home and is fine, not need do in PT 11/06 dynamic stabilization Standing Exercise Name wall 90/90 Side right Resistance 1000g tball Reps/Minutes 2x20 Comments pnfree ABD IR & ecc ER Standing Exercise Name throws into trampoline Side right Resistance 1000g tball Reps/Minutes 20x2 Comments cued allow eccentric full range back Manual Therapy Treatment Soft Tissue Mobilization posterior trunk Body Location distal RTC, proximal bicep Mobilization Type Strumming,Sustained Pressure Intensity/Depth Moderate Body Position Sidelying Comments Min tenderness of pfo R lat, teres muscles of RTC. Palpable relaxation with STM Joint Mobilizations R Glenohumeral Joint jt at 45-70 deg abd Direction P-A Grade II Comments for increased AROM into ER. Monitored for pain, none reported. Increased AROM restrictions due to soft tissue with increasing abduction and HABD R AC joint Direction post on scapular spine, ant on clavicle Grade II Body Position Supine Reps/Duration 1x10 ea Comments To increase joint space, pinch reduction for improved overhead mobility. Improved anterior clavicle mobility. PT-OP-R Modalities Start: 09/26/23 16:19 Freq: Status: Active Protocol: Document 11/04/23 07:33 SP (Rec: 11/04/23 08:18 SP [id number]) Ultrasound Therapy Treatment R bicep Patient Position Supine Coupling Medium Ultrasound Gel Applicator Size (cm2) 2cm Intensity Setting (w/cm2) 8 Comments less pain prox at coricoid process 10 min PT-OP-T Assessment and Plan Start: 09/26/23 16:19 Freq: Status: Active Protocol: Document 11/07/23 07:30 SP (Rec: 11/07/23 08:58 SP [id number]) Physical Therapy Assessment Goals Five Impairment activity Short Term Goal (STG) Pt will report at least 30% return to prior level of activity in order to demonstrate improved QOL, activity tolerance, and pain management 10/31/23: 50% reported back to PLOF STG Duration 4 weeks MET [facility] Goal (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 LTG Duration 8 weeks Four Impairment strength Impairment R shoulder strength grossly 4/ 5 for ER, IR, and flexion Tractor Mechanic Goal (LTG) Pt will improve R shoulder gross MMT to at least 4+/5 with pain <2/10 in order to demonstrate improved tolerance for activity, ADLs. 10/31/23: 4+/5 with 2/10 pain with ER and initiating flexion LTG Duration 8 weeks PROGRESSING Three Impairment periscapular strength Impairment grossly 4/5 Tractor Mechanic Goal (LTG) Pt will improve periscapular strength to at least 4+/5 without compensation in order to demonstrate increased scapular control during arm elevation 10/31/23: 4+/5 for elevation, add, depression; 4/5 for abduction 2/10 pain LTG Duration 8 weeks PROGRESSING Two Impairment AROM Impairment Apley IR scratch test: T12 Short Term Goal (STG) Pt will improve R Apley IR scratch test AROM to at least T10 in order to demonstrate improved AROM for ADLs. 10/31/23: T10, not painful but cramping STG Duration 4 weeks MET [facility] Goal (LTG) Pt will improve R Apley IR scratch test AROM to at least T8 in order to demonstrate improved AROM for ADLs, comparable to L Apley. LTG Duration 8 weeks One Impairment quickdash Impairment quickdash 18% [facility] Goal (LTG) Pt will decrease quickdash score by at least 9% in order to demonstrate improved function and QOL 10/31/23: 15.9% LTG Duration 8 weeks Assessment Summary Assessment Pt responded well to manual ther ex. Slight proximal bicep tension during initial reps of throw/catch end range abd/ ER with trampoline and Scaption TB standing but not painful. Good tiring effort for all exercises. Physical Therapy Plan Frequency and Duration Frequency of Treatment 2x/Week Duration of treatment (weeks) 8 Plan of Care Start Date 09/27/23 Plan of Care End Date 11/22/23 Therapeutic Interventions Therapeutic Interventions Aquatic Therapy,Coordination Training,Home Exercise Program ,Joint Mobilizations,Manual Therapy,Neuromuscular Re- education,Orthotic/Prosthetic Management,Patient/Caregiver Education,Self-Care/Home Management,Sensory Integration ,Soft Tissue Mobilization, Taping,Therapeutic Activities, Therapeutic Exercises Modalities Cold Pack/Ice Massage,Electric Stimulation,Hot Packs, Traction- Mechanical, Ultrasound,Vasopneumatic Devices Other Referrals/Consults Referrals/Consults Recommended Recommend MRI and referral to ortho depending on pt progression with conservative treatment Next Visit Focus/Plan Next Note Type Treatment Note Next Visit Plan Assess R prox bicep, manual PRN. pOC Trial push up with band, mobilize into IR for improved range Next session: Reassess scaption/front/lateral raises depending on tolerance (low weight and progress), dynamic hug POC: Continue periscapular and Serratus Press strengthening from close into open chain: TB and body blade /c scap mechanics. Progress as higher level depending on pain, prone abd up to 90 ER/IR ~ throwing Review Cervical spine STM, stretching as needed; Progress prone ITYW as tolerated, pec stretch, thoracic mobility and strengthening. Lower/Middle trap activation gentle RTC strengthening as able, scapular mechanics *be aware of bicep irritation
--- NOTE | 2023-11-11 13:38 | PT.OTN ---
Current Diagnoses Pain in right shoulder (11/11/23) Other specified joint disorders, right shoulder (11/11/23) Physical Therapy Treatment Note PT-OP-A Visit Information Start: 09/26/23 16:19 Freq: Status: Active Protocol: Document 11/11/23 07:31 NM (Rec: 11/11/23 08:14 NM [id number]) Out-Patient Physical Therapy Visit Information Visit Information Visit Type Progress Note Visit Start Time 07:33 Visit Stop Time 08:15 Visit Number 12 Evaluation Information Evaluation Date 09/27/23 PT-OP-B Current Condition Start: 09/26/23 16:19 Freq: Status: Active Protocol: Document 09/27/23 07:29 NM (Rec: 09/27/23 08:17 NM [id number]) Current Condition History of Current Condition Onset Date 3-4 months ago Current Complaints pain with throwing, resting pain History of Current Condition Pt presents with R shoulder pain beginning without known NOE several months ago. He currently had dx of impingement, likely from overuse. Recently received cortisone injection 3 weeks ago and is on anti- inflammatories, which helps. 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 Reports pain is most noticeable when lifting, driving. Has hx of R rotator cuff repair 20 years ago; states this feels the same. No MRI, but did an x-ray without conclusive results. Trying conservative treatment. Pt lifts weights every day but has decreased (previously power lifting, body weight lifting). 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 Worse with throwing, overhead pushing (pull ups are ok). 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 Pt reports that he has had improvement since starting PT, no longer as achy. Pt reports less pinching with elevation, but more biceps irritation PT-OP-E Functional Tests Start: 09/26/23 16:19 Freq: Status: Active Protocol: Document 09/27/23 07:29 NM (Rec: 09/27/23 08:17 NM [id number]) Functional Tests Apley's Scratch Test Action 1- Left post cuff Action 1- Right post cuff, min discomfort Action 2- Left T5 Action 2- Right T4, min discomfort (1/10) Action 3- Left T7 Action 3- Right T12 (most provocative, 3/10) PT-OP-F Manual Assessment Start: 09/26/23 16:19 Freq: Status: Active Protocol: Document 09/27/23 07:29 NM (Rec: 09/27/23 18:19 NM [id number]) Manual Assessments Soft Tissue Assessment Soft Tissue Mobility Assessment Increased tone of R upper trapezius, levator scapula, R cervical spine paraspinals. Restrictions of posterior cuff muscles, pectorals Joint Mobility Assessment Joint Mobility Assessment Anterior position R humeral head. Full bilateral shoulder AROM into flexion and abduction, IR. Limited shoulder ER AROM, flora with increased abduction. B scapulae 2 from spine. Delayed R scapulohumeral rhythm with arm elevation. Decreased R AC joint space, elevated R 1st rib PT-OP-H Neuro Start: 09/26/23 16:19 Freq: Status: Active Protocol: Document 09/27/23 07:29 NM (Rec: 09/27/23 18:19 NM [id number]) Sensation Evaluation Gross Sensation Gross Sensation WNL Comments Summary Comments BUE equally intact to light touch sensation PT-OP-J Posture/Palpation/Skin Start: 09/26/23 16:19 Freq: Status: Active Protocol: Document 09/27/23 07:29 NM (Rec: 09/27/23 18:19 NM [id number]) Posture Evaluation Position Standing Evaluation View posterior, lateral Head/C-Spine Posture Forward Head T-Spine Posture Neutral L-Spine Posture Decreased Lordosis Shoulder Posture (L) Rounded,(R) Rounded Scapula Posture (L) Protracted,(R) Protracted, (R) Elevated Arm Posture (L) Internally Rotated,(R) Internally Rotated Pelvis Posture Neutral Weight Distribution Balanced Hip Posture (L) Neutral,(R) Neutral Knee Posture (L) Genu Valgus,(R) Genu Valgus Patellar Posture (L) Superior,(R) Superior Ankle/Foot Posture (L) Neutral,(R) Neutral Palpation Assessment Location cervical spine Palpation Location paraspinals, upper trap, levator scapula Palpation Findings Soft Tissue Tightness,Spasm Palpation Details Spasm R upper trapezius, levator scapula, paraspinals R shoulder Palpation Location long head biceps, rotator cuff insertion, posterior cuff, pectoral Palpation Findings Soft Tissue Tightness, Tenderness Palpation Details Tenderness along long head biceps, rotator cuff insertion . Soft tissue tightness of rotator cuff muscles, pectorals PT-OP-K Range of Motion Start: 09/26/23 16:19 Freq: Status: Active Protocol: Document 11/11/23 07:31 NM (Rec: 11/11/23 08:14 NM [id number]) Shoulder Goniometric Range of Motion Shoulder R shoulder AROM Testing Position Sitting Flexion 175 Abduction 175 External Rotation at 90 degrees 80 Abduction Internal Rotation Behind Back (text) T8 Comments 09/27/23 (IE): 170 deg flex, 172 deg abd, 70 deg ER at 90 deg abd, 60 deg ER at 45 deg abd, 40 deg ER at 0 deg abd, 80 deg IR; pain with 45 deg abd (08/21) 10/31/23: 175 flex and abd, with impingement symptoms at end range, 85 deg at 90 deg abd, IR apley T10 11/11/23: T8 apley IR, 175 deg flex and abd (LH biceps pain), 80 deg ER PT-OP-L Special Tests Start: 09/26/23 16:19 Freq: Status: Active Protocol: Document 09/27/23 07:29 NM (Rec: 09/27/23 08:17 NM [id number]) Special Tests Cervical Spine Special Tests Distraction Test Results - Spurling's Test Test Results - Shoulder Special Tests IR/Horizontal ADD Impingement Test Results + Mercedes's Biceps Test Results + Comments painful, no loss of strength Speed's Biceps Test Results + Whitt Tho Impingement Test Results + Lift-Off Rotator Cuff Test Results + Comments painful, able to perform with AROM and against minimal resistance ER lag (rotator cuff) Test Results - Empty Can Test Results + Comments Min pain but reports full can worse PT-OP-M Strength Start: 09/26/23 16:19 Freq: Status: Active Protocol: Document 11/11/23 07:31 NM (Rec: 11/11/23 08:14 NM [id number]) Scapula Strength Scapula Manual Muscle Testing Right Elevation (C4) 4 Good Adduction 4 Good Abduction 4 Good Depression 4 Good Comments Minimal pain with resisted testing; no limits ROM 10/31/23: 4+/5 for elevation, add, depression; 4/5 for abduction 09/21 pain 11/11/23: 4+/5 for all motions except 4/5 abd, 08/21 pain Shoulder Strength Shoulder Manual Muscle Testing Right shoulder Flexion 4+ Good+ Extension 5 Normal Abduction (C5) 4+ Good+ External Rotation 4+ Good+ Internal Rotation 4+ Good+ Horizontal Abduction 4+ Good+ Horizontal Adduction 4+ Good+ Comments Moderate pain with resisted ER ; minimal pain with resisted flexion, IR, abduction 09/27/23: flex/ER/HABDHADD 4/5, ext 5/5, abd 4+/5 10/31/23: 4+/5 for all, min pain with resisted ER and flexion initially 11/11/23: 4+/5 for all, pain initiating flexion, no pain with resisted ER PT-OP-Q Treatments Start: 09/26/23 16:19 Freq: Status: Active Protocol: Document 11/11/23 07:31 NM (Rec: 11/11/23 08:14 NM [id number]) Therapeutic Exercises Prone Exercises ER Prone Exercise Name abd 90 deg prone Side right Resistance 3# DB (EO table) Reps/Minutes 2x15 reps Comments pain free quadruped Prone Exercise Name walking plank with band Side bilateral Resistance lvl 3 band Equipment Used verbal cues for scap protraction Reps/Minutes 2x10 ft with banded ER during walking Comments cued full protaction; no shoulder pain Sidelying Exercises sidelying abduction Sidelying Exercise Name FROM Side right Resistance 7 # db Reps/Minutes 2x10 Comments tiring, pnfree but demos popping >90 deg prn sidelying flexion Sidelying Exercise Name FROM Side right Resistance 7# db Reps/Minutes 2x10 ea Comments good form, tiring, pnfree, PT cue post scap set, no UT Standing Exercises wall walking UEs Standing Exercise Name walk walk (added to HEP) Resistance TB #3 Equipment Used arms extended Reps/Minutes 20 ft x2 laps Comments pain free scaption TB Side right Resistance Tb #3 Reps/Minutes 2x15 Comments pain free with scapular setting, cued for scap setting ; mirror for cues R IR Standing Exercise Name stretch Side right Resistance AROM approx T9 Reps/Minutes 2x30 Comments no pain in anterior shoulder Manual Therapy Treatment Soft Tissue Mobilization posterior trunk Body Location distal RTC, proximal bicep Mobilization Type Cross-Friction,Strumming, Sustained Pressure Intensity/Depth Moderate Body Position Sidelying Comments Increased tenderness of R proximal biceps, reduced with cross friction. Palpable relaxation with mobilization. Less rotator cuff tenderness. cervical spine Body Location UT, LS, scalene, SCM Mobilization Type Oscillations,Rolling,Sustained Pressure Intensity/Depth Moderate Body Position Sidelying Comments Cued for breathing with mobilization. Increased tightness of R UT, SCM, LS. Performed start of session. Elevated first rib Joint Mobilizations R Glenohumeral Joint jt at 45-70 deg abd Direction P-A Grade II Comments for increased AROM into ER, decrease impingement symptoms with elevation. Monitored for pain, none reported. Decreased popping in shoulder R AC joint Direction post on scapular spine, ant on clavicle Grade II Body Position Sidelying Reps/Duration 1x10 ea Comments To increase joint space, pinch reduction for improved overhead mobility. Improved anterior clavicle mobility. 1st rib Joint R 1st rib Direction caudal / c exhale and FF Grade II Body Position Sidelying Reps/Duration 1x15 Comments after cervical spine STM, cued for breathing. Decreased tension after stretching SCM, UT, scalenes Self-Care/Home Management Treatment Education Patient Education Home Exercise Program Other Education HEP: wall walks PT-OP-R Modalities Start: 09/26/23 16:19 Freq: Status: Active Protocol: Document 11/04/23 07:33 SP (Rec: 11/04/23 08:18 SP [id number]) Ultrasound Therapy Treatment R bicep Patient Position Supine Coupling Medium Ultrasound Gel Applicator Size (cm2) 2cm Intensity Setting (w/cm2) 8 Comments less pain prox at coricoid process 10 min PT-OP-T Assessment and Plan Start: 09/26/23 16:19 Freq: Status: Active Protocol: Document 11/11/23 07:31 NM (Rec: 11/11/23 08:14 NM [id number]) Physical Therapy Assessment Goals Five Impairment activity Short Term Goal (STG) Pt will report at least 30% return to prior level of activity in order to demonstrate improved QOL, activity tolerance, and pain management 10/31/23: 50% reported back to PLOF 11/11/23: not performing aggravating activities, reports 50% with back to PLOF STG Duration 4 weeks MET Mcfp Goal (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 11/11/23: 50% return to activity , but continues to report activity modification and not performing aggravating activities LTG Duration 8 weeks Four Impairment strength Impairment R shoulder strength grossly 4/ 5 for ER, IR, and flexion Mcfp Goal (LTG) Pt will improve R shoulder gross MMT to at least 4+/5 with pain <2/10 in order to demonstrate improved tolerance for activity, ADLs. 10/31/23: 4+/5 with 2/10 pain with ER and initiating flexion 11/11/23: 4+/5 with pain initiating flexion, no pain with resisted ER LTG Duration 8 weeks PROGRESSING Three Impairment periscapular strength Impairment grossly 4/5 Mcfp Goal (LTG) Pt will improve periscapular strength to at least 4+/5 without compensation in order to demonstrate increased scapular control during arm elevation 10/31/23: 4+/5 for elevation, add, depression; 4/5 for abduction 2/10 pain 11/11/23: 4+/5 for all motions except 4/5 abd, 1/10 pain LTG Duration 8 weeks PROGRESSING Two Impairment AROM Impairment Apley IR scratch test: T12 Short Term Goal (STG) Pt will improve R Apley IR scratch test AROM to at least T10 in order to demonstrate improved AROM for ADLs. 10/31/23: T10, not painful but cramping STG Duration 4 weeks MET Electrode Turner And Finisher Goal (LTG) Pt will improve R Apley IR scratch test AROM to at least T8 in order to demonstrate improved AROM for ADLs, comparable to L Apley. 11/11/23: T8, IR apley, stretch but not painful LTG Duration 8 weeks MET One Impairment quickdash Impairment quickdash 18% Mcfp Goal (LTG) Pt will decrease quickdash score by at least 9% in order to demonstrate improved function and QOL 10/31/23: 15.9% 11/11/23: score 16 or 11.3% LTG Duration 8 weeks PROGRESSING Assessment Summary Assessment Pt pain free with exercise post manual treatment, but continues to have discomfort and irritation at R long head biceps tendon, worse with elevation and overhead movements. Continued with scapular mechanics, with cueing to maintain posterior scapular setting for improved scapulohumeral rhythm with resistance. Manual treatment to decrease soft tissue restrictions of cervical spine paraspinals and decrease R shoulder pain symptoms. Due to irritation of R long head biceps tendon, trialed cross friction at proximal tendon to decrease inflammation. Pt demos improved R AC joint space, but continues to have elevated first rib which affects R arm elevation. Pt has been seen 11 times for R shoulder pain related to impingement and rotator cuff weakness since September 2023. Pt is progressing with managing pain symptoms and with modifying activities to reduce symptom provocation. At this time, pt reports fewer symptoms related to impingement and more irritation of long head biceps tendon. Pt is progressing toward goals. He has full R shoulder AROM and is progressing toward R shoulder/ scapular strength. He continues to experience a dysregulation of his scapulohumeral rhythm with R arm elevation. Pt also reports limitations in participation in ADLs/IADLs and recreational activities. He reports that he is back to 50% of his PLOF with activity modification. PT educated pt that tendon irritation requires several months of activity modification for healing to occur, which pt verbalizes understanding. Pt would benefit from skilled PT R rotator cuff and scapular stabilization, body mechanics training, and activity modification to reduce pain symptoms and improve activity tolerance/return to PLOF. Physical Therapy Plan Frequency and Duration Frequency of Treatment 2x/Week Duration of treatment (weeks) 10 Plan of Care Start Date 11/11/23 Plan of Care End Date 01/24/24 Therapeutic Interventions Therapeutic Interventions Aquatic Therapy,Coordination Training,Home Exercise Program ,Joint Mobilizations,Manual Therapy,Neuromuscular Re- education,Orthotic/Prosthetic Management,Patient/Caregiver Education,Self-Care/Home Management,Sensory Integration ,Soft Tissue Mobilization, Taping,Therapeutic Activities, Therapeutic Exercises Modalities Cold Pack/Ice Massage,Electric Stimulation,Hot Packs, Iontophoresis,Traction- Mechanical,Ultrasound, Vasopneumatic Devices Other Referrals/Consults Referrals/Consults Recommended Recommend MRI and referral to ortho depending on pt progression with conservative treatment Next Visit Focus/Plan Next Note Type Treatment Note Next Visit Plan Next session: trial ER press at 90 deg, lat pull down ( 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 pOC Trial push up with band, mobilize into IR for improved range Next session: Reassess scaption/front/lateral raises depending on tolerance (low weight and progress), dynamic hug POC: Continue periscapular and Serratus Press strengthening from close into open chain: TB and body blade /c scap mechanics. Progress as higher level depending on pain, prone abd up to 90 ER/IR ~ throwing Review Cervical spine STM, stretching as needed; Progress prone ITYW as tolerated, pec stretch, thoracic mobility and strengthening. Lower/Middle trap activation gentle RTC strengthening as able, scapular mechanics *be aware of bicep irritation
--- NOTE | 2023-11-27 09:10 | PT.OTN ---
Current Diagnoses Pain in right shoulder (11/27/23) Other specified joint disorders, right shoulder (11/27/23) Physical Therapy Treatment Note PT-OP-A Visit Information Start: 09/26/23 16:19 Freq: Status: Active Protocol: Document 11/27/23 07:31 NM (Rec: 11/27/23 08:16 NM [id number]) Out-Patient Physical Therapy Visit Information Visit Information Visit Type Treatment Note Visit Start Time 07:32 Visit Stop Time 08:15 Visit Number 13 Evaluation Information Evaluation Date 09/27/23 PT-OP-B Current Condition Start: 09/26/23 16:19 Freq: Status: Active Protocol: Document 09/27/23 07:29 NM (Rec: 09/27/23 08:17 NM [id number]) Current Condition History of Current Condition Onset Date 3-4 months ago Current Complaints pain with throwing, resting pain History of Current Condition Pt presents with R shoulder pain beginning without known NOE several months ago. He currently had dx of impingement, likely from overuse. Recently received cortisone injection 3 weeks ago and is on anti- inflammatories, which helps. 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 Reports pain is most noticeable when lifting, driving. Has hx of R rotator cuff repair 20 years ago; states this feels the same. No MRI, but did an x-ray without conclusive results. Trying conservative treatment. Pt lifts weights every day but has decreased (previously power lifting, body weight lifting). 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 Worse with throwing, overhead pushing (pull ups are ok). 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 No pain at rest, pain only with overhead elevation, /. PT-OP-E Functional Tests Start: 09/26/23 16:19 Freq: Status: Active Protocol: Document 09/27/23 07:29 NM (Rec: 09/27/23 08:17 NM [id number]) Functional Tests Apley's Scratch Test Action 1- Left post cuff Action 1- Right post cuff, min discomfort Action 2- Left T5 Action 2- Right T4, min discomfort (08/21) Action 3- Left T7 Action 3- Right T12 (most provocative, 10/19) PT-OP-F Manual Assessment Start: 09/26/23 16:19 Freq: Status: Active Protocol: Document 09/27/23 07:29 NM (Rec: 09/27/23 18:19 NM [id number]) Manual Assessments Soft Tissue Assessment Soft Tissue Mobility Assessment Increased tone of R upper trapezius, levator scapula, R cervical spine paraspinals. Restrictions of posterior cuff muscles, pectorals Joint Mobility Assessment Joint Mobility Assessment Anterior position R humeral head. Full bilateral shoulder AROM into flexion and abduction, IR. Limited shoulder ER AROM, flora with increased abduction. B scapulae 2 from spine. Delayed R scapulohumeral rhythm with arm elevation. Decreased R AC joint space, elevated R 1st rib PT-OP-H Neuro Start: 09/26/23 16:19 Freq: Status: Active Protocol: Document 09/27/23 07:29 NM (Rec: 09/27/23 18:19 NM [id number]) Sensation Evaluation Gross Sensation Gross Sensation WNL Comments Summary Comments BUE equally intact to light touch sensation PT-OP-J Posture/Palpation/Skin Start: 09/26/23 16:19 Freq: Status: Active Protocol: Document 09/27/23 07:29 NM (Rec: 09/27/23 18:19 NM [id number]) Posture Evaluation Position Standing Evaluation View posterior, lateral Head/C-Spine Posture Forward Head T-Spine Posture Neutral L-Spine Posture Decreased Lordosis Shoulder Posture (L) Rounded,(R) Rounded Scapula Posture (L) Protracted,(R) Protracted, (R) Elevated Arm Posture (L) Internally Rotated,(R) Internally Rotated Pelvis Posture Neutral Weight Distribution Balanced Hip Posture (L) Neutral,(R) Neutral Knee Posture (L) Genu Valgus,(R) Genu Valgus Patellar Posture (L) Superior,(R) Superior Ankle/Foot Posture (L) Neutral,(R) Neutral Palpation Assessment Location cervical spine Palpation Location paraspinals, upper trap, levator scapula Palpation Findings Soft Tissue Tightness,Spasm Palpation Details Spasm R upper trapezius, levator scapula, paraspinals R shoulder Palpation Location long head biceps, rotator cuff insertion, posterior cuff, pectoral Palpation Findings Soft Tissue Tightness, Tenderness Palpation Details Tenderness along long head biceps, rotator cuff insertion . Soft tissue tightness of rotator cuff muscles, pectorals PT-OP-K Range of Motion Start: 09/26/23 16:19 Freq: Status: Active Protocol: Document 11/11/23 07:31 NM (Rec: 11/11/23 08:14 NM [id number]) Shoulder Goniometric Range of Motion Shoulder R shoulder AROM Testing Position Sitting Flexion 175 Abduction 175 External Rotation at 90 degrees 80 Abduction Internal Rotation Behind Back (text) T8 Comments 09/27/23 (IE): 170 deg flex, 172 deg abd, 70 deg ER at 90 deg abd, 60 deg ER at 45 deg abd, 40 deg ER at 0 deg abd, 80 deg IR; pain with 45 deg abd (08/21) 10/31/23: 175 flex and abd, with impingement symptoms at end range, 85 deg at 90 deg abd, IR apley T10 11/11/23: T8 apley IR, 175 deg flex and abd (LH biceps pain), 80 deg ER PT-OP-L Special Tests Start: 09/26/23 16:19 Freq: Status: Active Protocol: Document 09/27/23 07:29 NM (Rec: 09/27/23 08:17 NM [id number]) Special Tests Cervical Spine Special Tests Distraction Test Results - Spurling's Test Test Results - Shoulder Special Tests IR/Horizontal ADD Impingement Test Results + Mercedes's Biceps Test Results + Comments painful, no loss of strength Speed's Biceps Test Results + Whitt Tho Impingement Test Results + Lift-Off Rotator Cuff Test Results + Comments painful, able to perform with AROM and against minimal resistance ER lag (rotator cuff) Test Results - Empty Can Test Results + Comments Min pain but reports full can worse PT-OP-M Strength Start: 09/26/23 16:19 Freq: Status: Active Protocol: Document 11/11/23 07:31 NM (Rec: 11/11/23 08:14 NM [id number]) Scapula Strength Scapula Manual Muscle Testing Right Elevation (C4) 4 Good Adduction 4 Good Abduction 4 Good Depression 4 Good Comments Minimal pain with resisted testing; no limits ROM 10/31/23: 4+/5 for elevation, add, depression; 4/5 for abduction / pain 11/11/23: 4+/5 for all motions except 4/5 abd, 08/21 pain Shoulder Strength Shoulder Manual Muscle Testing Right shoulder Flexion 4+ Good+ Extension 5 Normal Abduction (C5) 4+ Good+ External Rotation 4+ Good+ Internal Rotation 4+ Good+ Horizontal Abduction 4+ Good+ Horizontal Adduction 4+ Good+ Comments Moderate pain with resisted ER ; minimal pain with resisted flexion, IR, abduction 09/27/23: flex/ER/HABDHADD 4/5, ext 5/5, abd 4+/5 10/31/23: 4+/5 for all, min pain with resisted ER and flexion initially 11/11/23: 4+/5 for all, pain initiating flexion, no pain with resisted ER PT-OP-Q Treatments Start: 09/26/23 16:19 Freq: Status: Active Protocol: Document 11/27/23 07:31 NM (Rec: 11/27/23 08:16 NM [id number]) Therapeutic Exercises Sidelying Exercises sidelying abduction Sidelying Exercise Name FROM Side right Resistance 7 # db Reps/Minutes 2x12 Comments no popping, fatiguing, pain free sidelying shoulder external rotation Side right Resistance 7# db Equipment Used towel btwn arm/body Reps/Minutes 2x12 Comments pain free, post manual tx sidelying flexion Sidelying Exercise Name FROM Side right Resistance 7# db Reps/Minutes 2x12 ea Comments cued post scap setting, reports fatiguing Standing Exercises B ER+ flexion Side bilateral Resistance lvl 3 band Equipment Used band around wrists, pushing against wall Reps/Minutes 2x12 Comments pain free; cued elbows // to wrists ER press Standing Exercise Name trialed in PT with band Side right Resistance lvl 4 band Comments ant shldr pain/pinch, d/c today wall walking UEs Standing Exercise Name walk walk with serratus press into wall Resistance TB #3 Equipment Used arms extended Reps/Minutes 20 ft x2 laps ea 1. 90 deg, 2. 120 deg Comments pain free, good scap setting scaption TB Side right Resistance tb 4# Reps/Minutes 2x15 Comments pain free with scapular setting, cued for scap setting ; mirror for cues plank BUE/BLE ext Standing Exercise Name bosu plank for scap stabilization Side bilateral Equipment Used tennis ball toss into bosu, attempt to stab into middle Reps/Minutes 1x10 ball toss, 2 min total on bosu Comments pain free, good stabilization Manual Therapy Treatment Soft Tissue Mobilization posterior trunk Body Location distal RTC, proximal bicep Mobilization Type Cross-Friction,Strumming, Sustained Pressure Intensity/Depth Moderate Body Position Sidelying Comments Increased tenderness of R proximal biceps, reduced with cross friction. Palpable relaxation with mobilization. Less rotator cuff tenderness. cervical spine Body Location UT, LS, scalene, SCM Mobilization Type Oscillations,Rolling,Sustained Pressure Intensity/Depth Moderate Body Position Sidelying Comments Cued for breathing with mobilization. Increased tightness of R UT, SCM, LS. Performed start of session. Elevated first rib Joint Mobilizations R Glenohumeral Joint jt at 45-70 deg abd Direction P-A Grade II Comments for increased AROM into ER and IR, decrease impingement symptoms with elevation. Tight with IR, improved ER mobility R AC joint Direction post on scapular spine, ant on clavicle Grade II Body Position Sidelying Reps/Duration 1x8 ea Comments To increase joint space, pinch reduction for improved overhead mobility. Improved posterior scapula and anterior clavicle mobility compared to prior session 1st rib Joint R 1st rib Direction caudal / c exhale and FF Grade II Body Position Sidelying Reps/Duration 1x15 Comments Performed after cervical spine STM, cued for breathing. Decreased tension after stretching SCM, UT, scalenes but still slightly elevated PT-OP-R Modalities Start: 09/26/23 16:19 Freq: Status: Active Protocol: Document 11/04/23 07:33 SP (Rec: 11/04/23 08:18 SP [id number]) Ultrasound Therapy Treatment R bicep Patient Position Supine Coupling Medium Ultrasound Gel Applicator Size (cm2) 2cm Intensity Setting (w/cm2) 8 Comments less pain prox at coricoid process 10 min PT-OP-T Assessment and Plan Start: 09/26/23 16:19 Freq: Status: Active Protocol: Document 11/27/23 07:31 NM (Rec: 11/27/23 08:16 NM [id number]) Physical Therapy Assessment Goals Five Impairment activity Short Term Goal (STG) Pt will report at least 30% return to prior level of activity in order to demonstrate improved QOL, activity tolerance, and pain management 10/31/23: 50% reported back to PLOF 11/11/23: not performing aggravating activities, reports 50% with back to PLOF STG Duration 4 weeks MET Development And Planning Engineer Goal (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 11/11/23: 50% return to activity , but continues to report activity modification and not performing aggravating activities LTG Duration 8 weeks Four Impairment strength Impairment R shoulder strength grossly 4/ 5 for ER, IR, and flexion Detention Goal (LTG) Pt will improve R shoulder gross MMT to at least 4+/5 with pain <2/10 in order to demonstrate improved tolerance for activity, ADLs. 10/31/23: 4+/5 with 2/10 pain with ER and initiating flexion 11/11/23: 4+/5 with pain initiating flexion, no pain with resisted ER LTG Duration 8 weeks PROGRESSING Three Impairment periscapular strength Impairment grossly 4/5 Development And Planning Engineer Goal (LTG) Pt will improve periscapular strength to at least 4+/5 without compensation in order to demonstrate increased scapular control during arm elevation 10/31/23: 4+/5 for elevation, add, depression; 4/5 for abduction 2/10 pain 11/11/23: 4+/5 for all motions except 4/5 abd, 1/10 pain LTG Duration 8 weeks PROGRESSING Two Impairment AROM Impairment Apley IR scratch test: T12 Short Term Goal (STG) Pt will improve R Apley IR scratch test AROM to at least T10 in order to demonstrate improved AROM for ADLs. 10/31/23: T10, not painful but cramping STG Duration 4 weeks MET Detention Goal (LTG) Pt will improve R Apley IR scratch test AROM to at least T8 in order to demonstrate improved AROM for ADLs, comparable to L Apley. 11/11/23: T8, IR apley, stretch but not painful LTG Duration 8 weeks MET One Impairment quickdash Impairment quickdash 18% Development And Planning Engineer Goal (LTG) Pt will decrease quickdash score by at least 9% in order to demonstrate improved function and QOL 10/31/23: 15.9% 11/11/23: score 16 or 11.3% LTG Duration 8 weeks PROGRESSING Assessment Summary Assessment Pt reports pinching in anterior shoulder when R shoulder ER press trialed today. No anterior shoulder pain with resisted forward flexion and scaption. No pain or increased tension with any other exercises. Post manual treatment, pt's R shoulder AROM 175 flex and abd, 70 deg ER at 90 deg abd post mobilization. Continues to have increased tightness of B paraspinals (L>R) today, tenderness at long head biceps tendon that is reduced but not completely alleviated with cross friction. Trialed scapular stabilization with bosu, pt with less scapular winging today. Pt would benefit from skilled PT for R shoulder strengthening to decrease pain symptoms and improve QOL. Physical Therapy Plan Frequency and Duration Frequency of Treatment 2x/Week Duration of treatment (weeks) 10 Plan of Care Start Date 11/11/23 Plan of Care End Date 01/24/24 Therapeutic Interventions Therapeutic Interventions Aquatic Therapy,Coordination Training,Home Exercise Program ,Joint Mobilizations,Manual Therapy,Neuromuscular Re- education,Orthotic/Prosthetic Management,Patient/Caregiver Education,Self-Care/Home Management,Sensory Integration ,Soft Tissue Mobilization, Taping,Therapeutic Activities, Therapeutic Exercises Modalities Cold Pack/Ice Massage,Electric Stimulation,Hot Packs, Iontophoresis,Traction- Mechanical,Ultrasound, Vasopneumatic Devices Other Referrals/Consults Referrals/Consults Recommended Recommend MRI and referral to ortho depending on pt progression with conservative treatment Next Visit Focus/Plan Next Note Type Treatment Note Next Visit Plan Next session: trial ER press at 90 deg if pain free in ant shoulder, 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 POC Trial push up with band, mobilize into IR for improved range Next session: Reassess scaption/front/lateral raises depending on tolerance (low weight and progress), dynamic hug POC: Continue periscapular and Serratus Press strengthening from close into open chain: TB and body blade /c scap mechanics. Progress as higher level depending on pain, prone abd up to 90 ER/IR ~ throwing Review Cervical spine STM, stretching as needed; Progress prone ITYW as tolerated, pec stretch, thoracic mobility and strengthening. Lower/Middle trap activation gentle RTC strengthening as able, scapular mechanics *be aware of bicep irritation
--- NOTE | 2023-11-29 08:13 | PT.OTN ---
Current Diagnoses Pain in right shoulder (11/29/23) Other specified joint disorders, right shoulder (11/29/23) Physical Therapy Treatment Note PT-OP-A Visit Information Start: 09/26/23 16:19 Freq: Status: Active Protocol: Document 11/29/23 07:33 SP (Rec: 11/29/23 08:20 SP [id number]) Out-Patient Physical Therapy Visit Information Visit Information Visit Type Treatment Note Visit Start Time 07:33 Visit Stop Time 08:13 Visit Number 14 Number of CHLORINATOR Visits 1 Evaluation Information Evaluation Date 09/27/23 PT-OP-B Current Condition Start: 09/26/23 16:19 Freq: Status: Active Protocol: Document 09/27/23 07:29 NM (Rec: 09/27/23 08:17 NM [id number]) Current Condition History of Current Condition Onset Date 3-4 months ago Current Complaints pain with throwing, resting pain History of Current Condition Pt presents with R shoulder pain beginning without known NOE several months ago. He currently had dx of impingement, likely from overuse. Recently received cortisone injection 3 weeks ago and is on anti- inflammatories, which helps. 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 Reports pain is most noticeable when lifting, driving. Has hx of R rotator cuff repair 20 years ago; states this feels the same. No MRI, but did an x-ray without conclusive results. Trying conservative treatment. Pt lifts weights every day but has decreased (previously power lifting, body weight lifting). Hx of ache, sharp pain (wide sky cap), overhead reaching (worse if loaded), sleeping when across chest; reports no changes in mobility and minimal changes in strength. Worse with throwing, overhead pushing (pull ups are ok). 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 DId ok after last tx with more advanced plank ball tosses. PT-OP-E Functional Tests Start: 09/26/23 16:19 Freq: Status: Active Protocol: Document 09/27/23 07:29 NM (Rec: 09/27/23 08:17 NM [id number]) Functional Tests Apley's Scratch Test Action 1- Left post cuff Action 1- Right post cuff, min discomfort Action 2- Left T5 Action 2- Right T4, min discomfort (/10) Action 3- Left T7 Action 3- Right T12 (most provocative, 3/10) PT-OP-F Manual Assessment Start: 09/26/23 16:19 Freq: Status: Active Protocol: Document 09/27/23 07:29 NM (Rec: 09/27/23 18:19 NM [id number]) Manual Assessments Soft Tissue Assessment Soft Tissue Mobility Assessment Increased tone of R upper trapezius, levator scapula, R cervical spine paraspinals. Restrictions of posterior cuff muscles, pectorals Joint Mobility Assessment Joint Mobility Assessment Anterior position R humeral head. Full bilateral shoulder AROM into flexion and abduction, IR. Limited shoulder ER AROM, flora with increased abduction. B scapulae 2 from spine. Delayed R scapulohumeral rhythm with arm elevation. Decreased R AC joint space, elevated R 1st rib PT-OP-H Neuro Start: 09/26/23 16:19 Freq: Status: Active Protocol: Document 09/27/23 07:29 NM (Rec: 09/27/23 18:19 NM [id number]) Sensation Evaluation Gross Sensation Gross Sensation WNL Comments Summary Comments BUE equally intact to light touch sensation PT-OP-J Posture/Palpation/Skin Start: 09/26/23 16:19 Freq: Status: Active Protocol: Document 09/27/23 07:29 NM (Rec: 09/27/23 18:19 NM [id number]) Posture Evaluation Position Standing Evaluation View posterior, lateral Head/C-Spine Posture Forward Head T-Spine Posture Neutral L-Spine Posture Decreased Lordosis Shoulder Posture (L) Rounded,(R) Rounded Scapula Posture (L) Protracted,(R) Protracted, (R) Elevated Arm Posture (L) Internally Rotated,(R) Internally Rotated Pelvis Posture Neutral Weight Distribution Balanced Hip Posture (L) Neutral,(R) Neutral Knee Posture (L) Genu Valgus,(R) Genu Valgus Patellar Posture (L) Superior,(R) Superior Ankle/Foot Posture (L) Neutral,(R) Neutral Palpation Assessment Location cervical spine Palpation Location paraspinals, upper trap, levator scapula Palpation Findings Soft Tissue Tightness,Spasm Palpation Details Spasm R upper trapezius, levator scapula, paraspinals R shoulder Palpation Location long head biceps, rotator cuff insertion, posterior cuff, pectoral Palpation Findings Soft Tissue Tightness, Tenderness Palpation Details Tenderness along long head biceps, rotator cuff insertion . Soft tissue tightness of rotator cuff muscles, pectorals PT-OP-K Range of Motion Start: 09/26/23 16:19 Freq: Status: Active Protocol: Document 11/11/23 07:31 NM (Rec: 11/11/23 08:14 NM [id number]) Shoulder Goniometric Range of Motion Shoulder R shoulder AROM Testing Position Sitting Flexion 175 Abduction 175 External Rotation at 90 degrees 80 Abduction Internal Rotation Behind Back (text) T8 Comments 09/27/23 (IE): 170 deg flex, 172 deg abd, 70 deg ER at 90 deg abd, 60 deg ER at 45 deg abd, 40 deg ER at 0 deg abd, 80 deg IR; pain with 45 deg abd (08/21) 10/31/23: 175 flex and abd, with impingement symptoms at end range, 85 deg at 90 deg abd, IR apley T10 11/11/23: T8 apley IR, 175 deg flex and abd (LH biceps pain), 80 deg ER PT-OP-L Special Tests Start: 09/26/23 16:19 Freq: Status: Active Protocol: Document 09/27/23 07:29 NM (Rec: 09/27/23 08:17 NM [id number]) Special Tests Cervical Spine Special Tests Distraction Test Results - Spurling's Test Test Results - Shoulder Special Tests IR/Horizontal ADD Impingement Test Results + Mercedes's Biceps Test Results + Comments painful, no loss of strength Speed's Biceps Test Results + Whitt Tho Impingement Test Results + Lift-Off Rotator Cuff Test Results + Comments painful, able to perform with AROM and against minimal resistance ER lag (rotator cuff) Test Results - Empty Can Test Results + Comments Min pain but reports full can worse PT-OP-M Strength Start: 09/26/23 16:19 Freq: Status: Active Protocol: Document 11/11/23 07:31 NM (Rec: 11/11/23 08:14 NM [id number]) Scapula Strength Scapula Manual Muscle Testing Right Elevation (C4) 4 Good Adduction 4 Good Abduction 4 Good Depression 4 Good Comments Minimal pain with resisted testing; no limits ROM 10/31/23: 4+/5 for elevation, add, depression; 4/5 for abduction 09/21 pain 11/11/23: 4+/5 for all motions except 4/5 abd, 08/21 pain Shoulder Strength Shoulder Manual Muscle Testing Right shoulder Flexion 4+ Good+ Extension 5 Normal Abduction (C5) 4+ Good+ External Rotation 4+ Good+ Internal Rotation 4+ Good+ Horizontal Abduction 4+ Good+ Horizontal Adduction 4+ Good+ Comments Moderate pain with resisted ER ; minimal pain with resisted flexion, IR, abduction 09/27/23: flex/ER/HABDHADD 4/5, ext 5/5, abd 4+/5 10/31/23: 4+/5 for all, min pain with resisted ER and flexion initially 11/11/23: 4+/5 for all, pain initiating flexion, no pain with resisted ER PT-OP-Q Treatments Start: 09/26/23 16:19 Freq: Status: Active Protocol: Document 11/29/23 07:33 SP (Rec: 11/29/23 08:20 SP [id number]) Gym Equipment Cable Column (Body Solid) pull down Resistance 10 plates Reps/Time 2x20 Therapeutic Exercises Supine Exercises Rhythmic stab Supine Exercise Name 55cm tball isometric 90d, 120 eg FF Resistance Therapist hit multi direction Reps/Minutes 30 x2 Comments pnfree Sidelying Exercises sidelying abduction Sidelying Exercise Name ROM to 90 no popping, FROM popping Side right Resistance 7 # db Reps/Minutes 2x15 Comments no popping to 90 deg, pinching but not pain sidelying shoulder external rotation Side right Resistance 10# db Equipment Used towel btwn arm/body Reps/Minutes 2x10 Comments pain free, post manual tx sidelying flexion Sidelying Exercise Name FROM Side right Resistance 7# db Reps/Minutes 2x15 ea Comments cued post scap setting, reports fatiguing Standing Exercises plank Standing Exercise Name ball small ball toss into bucket Side bilateral Equipment Used red, green, tennis, lacrosse, racquetball Reps/Minutes 8 balls x3 sets Comments hands WB on balls- scap stab attempt ER press Standing Exercise Name trialed in PT OH FF 90> ABD 90 *> OH Side right Resistance lvl 4 band Reps/Minutes 2x15 Comments fatiguing (not able pure abd OH press) wall walking UEs Standing Exercise Name walk walk with serratus press into wall Resistance TB #3 Equipment Used arms extended Reps/Minutes 20 ft x2 laps ea 1. 90 deg, 2. 120 deg Comments pain free, good scap setting scaption TB Side right Resistance tb 4# Reps/Minutes 2x15 Comments pain free with scapular setting, cued for scap setting ; mirror for cues plank BUE/BLE ext Standing Exercise Name bosu plank on flat Side bilateral Equipment Used tennis ball drop into bosu flat/angle, attempt to stab bal into middle hole Reps/Minutes 1x10 ball toss, 2 min total on bosu Comments pain free, good stabilization Manual Therapy Treatment Joint Mobilizations R AC joint Direction post on scapular spine, ant on clavicle Grade II Body Position Sidelying Reps/Duration 1x8 ea Comments To increase joint space, pinch reduction for improved overhead mobility. Improved posterior scapula and anterior clavicle mobility compared to prior session PT-OP-R Modalities Start: 09/26/23 16:19 Freq: Status: Active Protocol: Document 11/04/23 07:33 SP (Rec: 11/04/23 08:18 SP [id number]) Ultrasound Therapy Treatment R bicep Patient Position Supine Coupling Medium Ultrasound Gel Applicator Size (cm2) 2cm Intensity Setting (w/cm2) 8 Comments less pain prox at coricoid process 10 min PT-OP-T Assessment and Plan Start: 09/26/23 16:19 Freq: Status: Active Protocol: Document 11/29/23 07:33 SP (Rec: 11/29/23 08:20 SP [id number]) Physical Therapy Assessment Goals Five Impairment activity Short Term Goal (STG) Pt will report at least 30% return to prior level of activity in order to demonstrate improved QOL, activity tolerance, and pain management 10/31/23: 50% reported back to PLOF 11/11/23: not performing aggravating activities, reports 50% with back to PLOF STG Duration 4 weeks MET Teleradiologist Goal (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 11/11/23: 50% return to activity , but continues to report activity modification and not performing aggravating activities LTG Duration 8 weeks Four Impairment strength Impairment R shoulder strength grossly 4/ 5 for ER, IR, and flexion Teleradiologist Goal (LTG) Pt will improve R shoulder gross MMT to at least 4+/5 with pain <2/10 in order to demonstrate improved tolerance for activity, ADLs. 10/31/23: 4+/5 with 2/10 pain with ER and initiating flexion 11/11/23: 4+/5 with pain initiating flexion, no pain with resisted ER LTG Duration 8 weeks PROGRESSING Three Impairment periscapular strength Impairment grossly 4/5 Teleradiologist Goal (LTG) Pt will improve periscapular strength to at least 4+/5 without compensation in order to demonstrate increased scapular control during arm elevation 10/31/23: 4+/5 for elevation, add, depression; 4/5 for abduction 2/10 pain 11/11/23: 4+/5 for all motions except 4/5 abd, 1/10 pain LTG Duration 8 weeks PROGRESSING Two Impairment AROM Impairment Apley IR scratch test: T12 Short Term Goal (STG) Pt will improve R Apley IR scratch test AROM to at least T10 in order to demonstrate improved AROM for ADLs. 10/31/23: T10, not painful but cramping STG Duration 4 weeks MET Group Home Goal (LTG) Pt will improve R Apley IR scratch test AROM to at least T8 in order to demonstrate improved AROM for ADLs, comparable to L Apley. 11/11/23: T8, IR apley, stretch but not painful LTG Duration 8 weeks MET One Impairment quickdash Impairment quickdash 18% Group Home Goal (LTG) Pt will decrease quickdash score by at least 9% in order to demonstrate improved function and QOL 10/31/23: 15.9% 11/11/23: score 16 or 11.3% LTG Duration 8 weeks PROGRESSING Assessment Summary Assessment Pt responded well to ther ex, only pinching anterior R shld reported wt ABD on side >90deg , dec post AC jt, limited reps . Unable perform scaption ER press out, pnfree modified FF 90deg then into abd 90deg OH with resistance. Pt reports no pain just pretty tiring end tx. Physical Therapy Plan Frequency and Duration Frequency of Treatment 2x/Week Duration of treatment (weeks) 10 Plan of Care Start Date 11/11/23 Plan of Care End Date 01/24/24 Therapeutic Interventions Therapeutic Interventions Aquatic Therapy,Coordination Training,Home Exercise Program ,Joint Mobilizations,Manual Therapy,Neuromuscular Re- education,Orthotic/Prosthetic Management,Patient/Caregiver Education,Self-Care/Home Management,Sensory Integration ,Soft Tissue Mobilization, Taping,Therapeutic Activities, Therapeutic Exercises Modalities Cold Pack/Ice Massage,Electric Stimulation,Hot Packs, Iontophoresis,Traction- Mechanical,Ultrasound, Vasopneumatic Devices Other Referrals/Consults Referrals/Consults Recommended Recommend MRI and referral to ortho depending on pt progression with conservative treatment Next Visit Focus/Plan Next Note Type Treatment Note Next Visit Plan Continue session: trial ER press at 90 deg if pain free in ant shoulder, lat pull down (change sky cap), D2 press, upright row Assess R prox bicep, manual PRN. POC Trial push up with band, mobilize into IR for improved range Next session: Reassess scaption/front/lateral raises depending on tolerance (low weight and progress), dynamic hug POC: Continue periscapular and Serratus Press strengthening from close into open chain: TB and body blade /c scap mechanics. Progress as higher level depending on pain, prone abd up to 90 ER/IR ~ throwing Review Cervical spine STM, stretching as needed; Progress prone ITYW as tolerated, pec stretch, thoracic mobility and strengthening. Lower/Middle trap activation gentle RTC strengthening as able, scapular mechanics *be aware of bicep irritation
--- NOTE | 2023-12-02 12:48 | PT.OTN ---
Current Diagnoses Pain in right shoulder (12/02/23) Other specified joint disorders, right shoulder (12/02/23) Physical Therapy Treatment Note PT-OP-A Visit Information Start: 09/26/23 16:19 Freq: Status: Active Protocol: Document 12/02/23 07:30 NM (Rec: 12/02/23 08:15 NM [id number]) Out-Patient Physical Therapy Visit Information Visit Information Visit Type Treatment Note Visit Start Time 07:31 Visit Stop Time 08:14 Visit Number 15 Evaluation Information Evaluation Date 09/27/23 PT-OP-B Current Condition Start: 09/26/23 16:19 Freq: Status: Active Protocol: Document 09/27/23 07:29 NM (Rec: 09/27/23 08:17 NM [id number]) Current Condition History of Current Condition Onset Date 3-4 months ago Current Complaints pain with throwing, resting pain History of Current Condition Pt presents with R shoulder pain beginning without known NOE several months ago. He currently had dx of impingement, likely from overuse. Recently received cortisone injection 3 weeks ago and is on anti- inflammatories, which helps. 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 Reports pain is most noticeable when lifting, driving. Has hx of R rotator cuff repair 20 years ago; states this feels the same. No MRI, but did an x-ray without conclusive results. Trying conservative treatment. Pt lifts weights every day but has decreased (previously power lifting, body weight lifting). 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 Worse with throwing, overhead pushing (pull ups are ok). 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 No difficulty with exercises or pain PT-OP-E Functional Tests Start: 09/26/23 16:19 Freq: Status: Active Protocol: Document 09/27/23 07:29 NM (Rec: 09/27/23 08:17 NM [id number]) Functional Tests Apley's Scratch Test Action 1- Left post cuff Action 1- Right post cuff, min discomfort Action 2- Left T5 Action 2- Right T4, min discomfort (10) Action 3- Left T7 Action 3- Right T12 (most provocative, 10/19) PT-OP-F Manual Assessment Start: 09/26/23 16:19 Freq: Status: Active Protocol: Document 09/27/23 07:29 NM (Rec: 09/27/23 18:19 NM [id number]) Manual Assessments Soft Tissue Assessment Soft Tissue Mobility Assessment Increased tone of R upper trapezius, levator scapula, R cervical spine paraspinals. Restrictions of posterior cuff muscles, pectorals Joint Mobility Assessment Joint Mobility Assessment Anterior position R humeral head. Full bilateral shoulder AROM into flexion and abduction, IR. Limited shoulder ER AROM, flora with increased abduction. B scapulae 2 from spine. Delayed R scapulohumeral rhythm with arm elevation. Decreased R AC joint space, elevated R 1st rib PT-OP-H Neuro Start: 09/26/23 16:19 Freq: Status: Active Protocol: Document 09/27/23 07:29 NM (Rec: 09/27/23 18:19 NM [id number]) Sensation Evaluation Gross Sensation Gross Sensation WNL Comments Summary Comments BUE equally intact to light touch sensation PT-OP-J Posture/Palpation/Skin Start: 09/26/23 16:19 Freq: Status: Active Protocol: Document 09/27/23 07:29 NM (Rec: 09/27/23 18:19 NM [id number]) Posture Evaluation Position Standing Evaluation View posterior, lateral Head/C-Spine Posture Forward Head T-Spine Posture Neutral L-Spine Posture Decreased Lordosis Shoulder Posture (L) Rounded,(R) Rounded Scapula Posture (L) Protracted,(R) Protracted, (R) Elevated Arm Posture (L) Internally Rotated,(R) Internally Rotated Pelvis Posture Neutral Weight Distribution Balanced Hip Posture (L) Neutral,(R) Neutral Knee Posture (L) Genu Valgus,(R) Genu Valgus Patellar Posture (L) Superior,(R) Superior Ankle/Foot Posture (L) Neutral,(R) Neutral Palpation Assessment Location cervical spine Palpation Location paraspinals, upper trap, levator scapula Palpation Findings Soft Tissue Tightness,Spasm Palpation Details Spasm R upper trapezius, levator scapula, paraspinals R shoulder Palpation Location long head biceps, rotator cuff insertion, posterior cuff, pectoral Palpation Findings Soft Tissue Tightness, Tenderness Palpation Details Tenderness along long head biceps, rotator cuff insertion . Soft tissue tightness of rotator cuff muscles, pectorals PT-OP-K Range of Motion Start: 09/26/23 16:19 Freq: Status: Active Protocol: Document 11/11/23 07:31 NM (Rec: 11/11/23 08:14 NM [id number]) Shoulder Goniometric Range of Motion Shoulder R shoulder AROM Testing Position Sitting Flexion 175 Abduction 175 External Rotation at 90 degrees 80 Abduction Internal Rotation Behind Back (text) T8 Comments 09/27/23 (IE): 170 deg flex, 172 deg abd, 70 deg ER at 90 deg abd, 60 deg ER at 45 deg abd, 40 deg ER at 0 deg abd, 80 deg IR; pain with 45 deg abd (08/21) 10/31/23: 175 flex and abd, with impingement symptoms at end range, 85 deg at 90 deg abd, IR apley T10 11/11/23: T8 apley IR, 175 deg flex and abd (LH biceps pain), 80 deg ER PT-OP-L Special Tests Start: 09/26/23 16:19 Freq: Status: Active Protocol: Document 09/27/23 07:29 NM (Rec: 09/27/23 08:17 NM [id number]) Special Tests Cervical Spine Special Tests Distraction Test Results - Spurling's Test Test Results - Shoulder Special Tests IR/Horizontal ADD Impingement Test Results + Mercedes's Biceps Test Results + Comments painful, no loss of strength Speed's Biceps Test Results + Whitt Tho Impingement Test Results + Lift-Off Rotator Cuff Test Results + Comments painful, able to perform with AROM and against minimal resistance ER lag (rotator cuff) Test Results - Empty Can Test Results + Comments Min pain but reports full can worse PT-OP-M Strength Start: 09/26/23 16:19 Freq: Status: Active Protocol: Document 11/11/23 07:31 NM (Rec: 11/11/23 08:14 NM [id number]) Scapula Strength Scapula Manual Muscle Testing Right Elevation (C4) 4 Good Adduction 4 Good Abduction 4 Good Depression 4 Good Comments Minimal pain with resisted testing; no limits ROM 10/31/23: 4+/5 for elevation, add, depression; 4/5 for abduction 09/21 pain 11/11/23: 4+/5 for all motions except 4/5 abd, 08/21 pain Shoulder Strength Shoulder Manual Muscle Testing Right shoulder Flexion 4+ Good+ Extension 5 Normal Abduction (C5) 4+ Good+ External Rotation 4+ Good+ Internal Rotation 4+ Good+ Horizontal Abduction 4+ Good+ Horizontal Adduction 4+ Good+ Comments Moderate pain with resisted ER ; minimal pain with resisted flexion, IR, abduction 09/27/23: flex/ER/HABDHADD 4/5, ext 5/5, abd 4+/5 10/31/23: 4+/5 for all, min pain with resisted ER and flexion initially 11/11/23: 4+/5 for all, pain initiating flexion, no pain with resisted ER PT-OP-Q Treatments Start: 09/26/23 16:19 Freq: Status: Active Protocol: Document 12/02/23 07:30 NM (Rec: 12/02/23 08:15 NM [id number]) Therapeutic Exercises Sitting Exercises cervical spine stretches Sitting Exercise Name 1. UT, 2. LS, next time: SCM/ scalene stretch Side bilateral Equipment Used opposite hand tensioning at neck/clavicle Reps/Minutes 1x60 ea Comments reports stretch, pain free Standing Exercises ER press Standing Exercise Name reviewed in PT OH FF 90> ABD 90*> OH Side right Resistance lvl 4 band Reps/Minutes 1x10 Comments fatiguing (not able pure abd OH press) scaption TB Standing Exercise Name 1. scaption, 2. abduction Side right Resistance tb 4# Equipment Used tactile cue against wall for post scap positioning Reps/Minutes 3x10 ea Comments pain free with scapular setting, cued for scap setting ; mirror for cues plank BUE/BLE ext Standing Exercise Name bosu plank on flat with hip ext Side bilateral Reps/Minutes 1x15 leg ext w/ 2 min plank scap stab on bosu Comments pain free, good stabilization R IR Standing Exercise Name R IR at 90 deg abd w/ eccentric ER Side right Resistance purple tb lvl 5 Reps/Minutes 3x10 Comments pain free, no pinching Other Exercises posterior capsule stretch Side right Equipment Used L assisting R Reps/Minutes 2x60 Comments post manual tx, d/t increased post capsule tightness Manual Therapy Treatment Soft Tissue Mobilization posterior trunk Body Location distal RTC, proximal bicep, lat Mobilization Type Cross-Friction,Strumming, Sustained Pressure Intensity/Depth Moderate Body Position Sidelying Comments Increased tenderness of R proximal biceps, reduced with cross friction. Palpable relaxation with mobilization. Less rotator cuff tenderness today but increased lat tightness and tenderness. cervical spine Body Location UT, LS, scalene, SCM Mobilization Type Oscillations,Rolling,Sustained Pressure Intensity/Depth Moderate Body Position Sidelying Comments Cued for breathing with mobilization. Increased tightness of R UT, SCM, LS. Performed start of session, prior to stretching. Elevated first rib Joint Mobilizations R Glenohumeral Joint jt at 90 deg abd Direction Post glide, posterior gapping Grade III Comments 1. Post glide with ER and IR bias to improve mobility 2. With functional movement into IR with abduction at 90 deg d/t increased R ant shoulder tightness 3. posterior glide d/t increased anterior humeral position R AC joint Direction post on scapular spine, ant on clavicle Grade II Body Position Sidelying Reps/Duration 1x15 ea Comments Less mobility within AC joint today, increased tenderness. Improved with mobilization, but limited with posterior scapular movement 1st rib Joint R 1st rib Direction caudal / c exhale and FF Grade II Body Position Sidelying Reps/Duration 1x10 Comments Performed after cervical spine STM, cued for breathing. Decreased tension after stretching SCM, UT, scalenes but still slightly elevated PT-OP-R Modalities Start: 09/26/23 16:19 Freq: Status: Active Protocol: Document 11/04/23 07:33 SP (Rec: 11/04/23 08:18 SP [id number]) Ultrasound Therapy Treatment R bicep Patient Position Supine Coupling Medium Ultrasound Gel Applicator Size (cm2) 2cm Intensity Setting (w/cm2) 8 Comments less pain prox at coricoid process 10 min PT-OP-T Assessment and Plan Start: 09/26/23 16:19 Freq: Status: Active Protocol: Document 12/02/23 07:30 NM (Rec: 12/02/23 08:15 NM [id number]) Physical Therapy Assessment Goals Five Impairment activity Short Term Goal (STG) Pt will report at least 30% return to prior level of activity in order to demonstrate improved QOL, activity tolerance, and pain management 10/31/23: 50% reported back to PLOF 11/11/23: not performing aggravating activities, reports 50% with back to PLOF STG Duration 4 weeks MET Half-Way Goal (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 11/11/23: 50% return to activity , but continues to report activity modification and not performing aggravating activities LTG Duration 8 weeks Four Impairment strength Impairment R shoulder strength grossly 4/ 5 for ER, IR, and flexion Wheel Molder Goal (LTG) Pt will improve R shoulder gross MMT to at least 4+/5 with pain <2/10 in order to demonstrate improved tolerance for activity, ADLs. 10/31/23: 4+/5 with 2/10 pain with ER and initiating flexion 11/11/23: 4+/5 with pain initiating flexion, no pain with resisted ER LTG Duration 8 weeks PROGRESSING Three Impairment periscapular strength Impairment grossly 4/5 Wheel Molder Goal (LTG) Pt will improve periscapular strength to at least 4+/5 without compensation in order to demonstrate increased scapular control during arm elevation 10/31/23: 4+/5 for elevation, add, depression; 4/5 for abduction 2/10 pain 11/11/23: 4+/5 for all motions except 4/5 abd, 1/10 pain LTG Duration 8 weeks PROGRESSING Two Impairment AROM Impairment Apley IR scratch test: T12 Short Term Goal (STG) Pt will improve R Apley IR scratch test AROM to at least T10 in order to demonstrate improved AROM for ADLs. 10/31/23: T10, not painful but cramping STG Duration 4 weeks MET Half-Way Goal (LTG) Pt will improve R Apley IR scratch test AROM to at least T8 in order to demonstrate improved AROM for ADLs, comparable to L Apley. 11/11/23: T8, IR apley, stretch but not painful LTG Duration 8 weeks MET One Impairment quickdash Impairment quickdash 18% Half-Way Goal (LTG) Pt will decrease quickdash score by at least 9% in order to demonstrate improved function and QOL 10/31/23: 15.9% 11/11/23: score 16 or 11.3% LTG Duration 8 weeks PROGRESSING Assessment Summary Assessment Pt continues to have increased R anterior shoulder tenderness and tightness. 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 Pt presents with increased anterior humeral positioning today and R shoulder tightness. Manual treatment targeting improving posterior humeral glide and positioning. Pt continues to have increased tension in cervical spine paraspinals and R long head biceps tendon. Initiated a posterior glide with IR bias mobilization in order to reduce pain symptoms with R shoulder IR. Trialed lateral raises with shoulder ER. All raises pain free with posterior scapular positioning , but pt requires moderate cues to maintain. Progressed bosu plank to scapular stabilization with hip extension; pt challenged to maintain stability without scapular winging, but pain free. Pt also without pain or pinching in anterior shoulder with IR at 90 deg abduction and ER press, but pt limited with full R shoulder abduction as fatigues. Pt would benefit from skilled PT for R shoulder strengthening and activity modification in order improve symptom management and activity tolerance. Physical Therapy Plan Frequency and Duration Frequency of Treatment 2x/Week Duration of treatment (weeks) 10 Plan of Care Start Date 11/11/23 Plan of Care End Date 01/24/24 Therapeutic Interventions Therapeutic Interventions Aquatic Therapy,Coordination Training,Home Exercise Program ,Joint Mobilizations,Manual Therapy,Neuromuscular Re- education,Orthotic/Prosthetic Management,Patient/Caregiver Education,Self-Care/Home Management,Sensory Integration ,Soft Tissue Mobilization, Taping,Therapeutic Activities, Therapeutic Exercises Modalities Cold Pack/Ice Massage,Electric Stimulation,Hot Packs, Iontophoresis,Traction- Mechanical,Ultrasound, Vasopneumatic Devices Other Referrals/Consults Referrals/Consults Recommended Recommend MRI and referral to ortho depending on pt progression with conservative treatment Next Visit Focus/Plan Next Note Type Treatment Note Next Visit Plan Continue session: trial ER press at 90 deg if pain free in ant shoulder, lat pull down (change reading tutor), D2 press, upright row Assess R prox bicep, manual PRN. POC Trial push up with band, mobilize into IR for improved range Next session: Reassess scaption/front/lateral raises depending on tolerance (low weight and progress), dynamic hug POC: Continue periscapular and Serratus Press strengthening from close into open chain: TB and body blade /c scap mechanics. Progress as higher level depending on pain, prone abd up to 90 ER/IR ~ throwing Review Cervical spine STM, stretching as needed; Progress prone ITYW as tolerated, pec stretch, thoracic mobility and strengthening. Lower/Middle trap activation gentle RTC strengthening as able, scapular mechanics *be aware of bicep irritation
--- NOTE | 2023-12-04 11:00 | PT.OTN ---
Current Diagnoses Pain in right shoulder (12/04/23) Other specified joint disorders, right shoulder (12/04/23) Physical Therapy Treatment Note PT-OP-A Visit Information Start: 09/26/23 16:19 Freq: Status: Active Protocol: Document 12/04/23 07:31 NM (Rec: 12/04/23 08:17 NM [id number]) Out-Patient Physical Therapy Visit Information Visit Information Visit Type Treatment Note Visit Start Time 07:32 Visit Stop Time 08:15 Visit Number 16 Evaluation Information Evaluation Date 09/27/23 PT-OP-B Current Condition Start: 09/26/23 16:19 Freq: Status: Active Protocol: Document 09/27/23 07:29 NM (Rec: 09/27/23 08:17 NM [id number]) Current Condition History of Current Condition Onset Date 3-4 months ago Current Complaints pain with throwing, resting pain History of Current Condition Pt presents with R shoulder pain beginning without known NOE several months ago. He currently had dx of impingement, likely from overuse. Recently received cortisone injection 3 weeks ago and is on anti- inflammatories, which helps. 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 Reports pain is most noticeable when lifting, driving. Has hx of R rotator cuff repair 20 years ago; states this feels the same. No MRI, but did an x-ray without conclusive results. Trying conservative treatment. Pt lifts weights every day but has decreased (previously power lifting, body weight lifting). 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 Worse with throwing, overhead pushing (pull ups are ok). 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 He states that he is almost done with using the drywall, planning on painting afterward. PT-OP-E Functional Tests Start: 09/26/23 16:19 Freq: Status: Active Protocol: Document 09/27/23 07:29 NM (Rec: 09/27/23 08:17 NM [id number]) Functional Tests Apley's Scratch Test Action 1- Left post cuff Action 1- Right post cuff, min discomfort Action 2- Left T5 Action 2- Right T4, min discomfort (/10) Action 3- Left T7 Action 3- Right T12 (most provocative, /10) PT-OP-F Manual Assessment Start: 09/26/23 16:19 Freq: Status: Active Protocol: Document 09/27/23 07:29 NM (Rec: 09/27/23 18:19 NM [id number]) Manual Assessments Soft Tissue Assessment Soft Tissue Mobility Assessment Increased tone of R upper trapezius, levator scapula, R cervical spine paraspinals. Restrictions of posterior cuff muscles, pectorals Joint Mobility Assessment Joint Mobility Assessment Anterior position R humeral head. Full bilateral shoulder AROM into flexion and abduction, IR. Limited shoulder ER AROM, flora with increased abduction. B scapulae 2 from spine. Delayed R scapulohumeral rhythm with arm elevation. Decreased R AC joint space, elevated R 1st rib PT-OP-H Neuro Start: 09/26/23 16:19 Freq: Status: Active Protocol: Document 09/27/23 07:29 NM (Rec: 09/27/23 18:19 NM [id number]) Sensation Evaluation Gross Sensation Gross Sensation WNL Comments Summary Comments BUE equally intact to light touch sensation PT-OP-J Posture/Palpation/Skin Start: 09/26/23 16:19 Freq: Status: Active Protocol: Document 09/27/23 07:29 NM (Rec: 09/27/23 18:19 NM [id number]) Posture Evaluation Position Standing Evaluation View posterior, lateral Head/C-Spine Posture Forward Head T-Spine Posture Neutral L-Spine Posture Decreased Lordosis Shoulder Posture (L) Rounded,(R) Rounded Scapula Posture (L) Protracted,(R) Protracted, (R) Elevated Arm Posture (L) Internally Rotated,(R) Internally Rotated Pelvis Posture Neutral Weight Distribution Balanced Hip Posture (L) Neutral,(R) Neutral Knee Posture (L) Genu Valgus,(R) Genu Valgus Patellar Posture (L) Superior,(R) Superior Ankle/Foot Posture (L) Neutral,(R) Neutral Palpation Assessment Location cervical spine Palpation Location paraspinals, upper trap, levator scapula Palpation Findings Soft Tissue Tightness,Spasm Palpation Details Spasm R upper trapezius, levator scapula, paraspinals R shoulder Palpation Location long head biceps, rotator cuff insertion, posterior cuff, pectoral Palpation Findings Soft Tissue Tightness, Tenderness Palpation Details Tenderness along long head biceps, rotator cuff insertion . Soft tissue tightness of rotator cuff muscles, pectorals PT-OP-K Range of Motion Start: 09/26/23 16:19 Freq: Status: Active Protocol: Document 11/11/23 07:31 NM (Rec: 11/11/23 08:14 NM [id number]) Shoulder Goniometric Range of Motion Shoulder R shoulder AROM Testing Position Sitting Flexion 175 Abduction 175 External Rotation at 90 degrees 80 Abduction Internal Rotation Behind Back (text) T8 Comments 09/27/23 (IE): 170 deg flex, 172 deg abd, 70 deg ER at 90 deg abd, 60 deg ER at 45 deg abd, 40 deg ER at 0 deg abd, 80 deg IR; pain with 45 deg abd (08/21) 10/31/23: 175 flex and abd, with impingement symptoms at end range, 85 deg at 90 deg abd, IR apley T10 11/11/23: T8 apley IR, 175 deg flex and abd (LH biceps pain), 80 deg ER PT-OP-L Special Tests Start: 09/26/23 16:19 Freq: Status: Active Protocol: Document 09/27/23 07:29 NM (Rec: 09/27/23 08:17 NM [id number]) Special Tests Cervical Spine Special Tests Distraction Test Results - Spurling's Test Test Results - Shoulder Special Tests IR/Horizontal ADD Impingement Test Results + Mercedes's Biceps Test Results + Comments painful, no loss of strength Speed's Biceps Test Results + Whitt Tho Impingement Test Results + Lift-Off Rotator Cuff Test Results + Comments painful, able to perform with AROM and against minimal resistance ER lag (rotator cuff) Test Results - Empty Can Test Results + Comments Min pain but reports full can worse PT-OP-M Strength Start: 09/26/23 16:19 Freq: Status: Active Protocol: Document 11/11/23 07:31 NM (Rec: 11/11/23 08:14 NM [id number]) Scapula Strength Scapula Manual Muscle Testing Right Elevation (C4) 4 Good Adduction 4 Good Abduction 4 Good Depression 4 Good Comments Minimal pain with resisted testing; no limits ROM 10/31/23: 4+/5 for elevation, add, depression; 4/5 for abduction 09/21 pain 11/11/23: 4+/5 for all motions except 4/5 abd, 08/21 pain Shoulder Strength Shoulder Manual Muscle Testing Right shoulder Flexion 4+ Good+ Extension 5 Normal Abduction (C5) 4+ Good+ External Rotation 4+ Good+ Internal Rotation 4+ Good+ Horizontal Abduction 4+ Good+ Horizontal Adduction 4+ Good+ Comments Moderate pain with resisted ER ; minimal pain with resisted flexion, IR, abduction 09/27/23: flex/ER/HABDHADD 4/5, ext 5/5, abd 4+/5 10/31/23: 4+/5 for all, min pain with resisted ER and flexion initially 11/11/23: 4+/5 for all, pain initiating flexion, no pain with resisted ER PT-OP-Q Treatments Start: 09/26/23 16:19 Freq: Status: Active Protocol: Document 12/04/23 07:31 NM (Rec: 12/04/23 08:17 NM [id number]) Cardio Equipment Upper Body Ergometer (UBE) Duration (Minutes) 4 RPM 90 Other standing (2' fwd, 2' bwd); warm up for soreness Therapeutic Exercises Prone Exercises ER Prone Exercise Name abd 90 deg prone Side right Resistance 7# Equipment Used towel under humerus Reps/Minutes 2x10 Comments pain free, no impingement symptoms; cued full 90 deg abd Standing Exercises ER press Standing Exercise Name PT OH FF 90> ABD 90*> OH Side right Resistance 7# db Equipment Used 1/2 kneel Reps/Minutes 2x15 Comments trialed with band resistance into ER but d/c d/t impinge symptoms plank BUE/BLE ext Standing Exercise Name bosu plank on flat with hip ext Side bilateral Equipment Used with ball toss Reps/Minutes 1x10 leg ext ea, 3 min plank hold Comments pain free, good stabilization of bosu; demos winging Other Exercises serratus slide Other Exercise Name abduction with serratus slide, banded resistance Side right Resistance lvl 4 band Equipment Used pillow case wall slide abd w/ serratus push into wall, resistance A-P Reps/Minutes 2x10 Comments pain free, cued to limit UT shrug and protract to limit winging pectoralis stretch/mobilization Other Exercise Name 45 to 90 deg abduction sliding along wall Side right Equipment Used staggered stance in doorway Reps/Minutes 1x60 Comments pain free posterior capsule stretch Side right Equipment Used L assisting R Reps/Minutes 1x60 Comments post manual tx, d/t increased post capsule tightness Manual Therapy Treatment Soft Tissue Mobilization posterior trunk Body Location RTC, proximal bicep, lat, rhomboids Mobilization Type Cross-Friction,Rolling, Strumming,Sustained Pressure Intensity/Depth Moderate Body Position Sidelying Comments Increased scapular winging, tenderness along periscapulars , lat, rotator cuff compared to previous sessions. Decreased with rolling and sustained pressure. Less biceps tenderness cervical spine Body Location UT, LS, scalene, SCM Mobilization Type Oscillations,Rolling,Sustained Pressure Intensity/Depth Moderate Body Position Sidelying Comments Cued for breathing with mobilization, muscle relaxation. Increased tightness of R UT, SCM, LS, paraspinals bilaterally Joint Mobilizations R Glenohumeral Joint jt at 90 deg abd Direction Post glide, posterior gapping Grade III Comments 1. Post glide with ER and IR bias to improve mobility 2. With functional movement into IR with abduction at 90 deg d/t increased R ant shoulder tightness 3. posterior glide d/t increased anterior humeral position, performed with functional IR with cue to keep posterior shoulder on table scapulothoracic Direction upwd/dwd rotation, depression Grade III Body Position Sidelying Reps/Duration 1x12 ea Comments Prior to stretching and ER press Self-Care/Home Management Treatment Education Patient Education Home Exercise Program Other Education HEP: did not issue HO, verbally added serratus slide w/ abduction against wall with band posterior glide PT-OP-R Modalities Start: 09/26/23 16:19 Freq: Status: Active Protocol: Document 11/04/23 07:33 SP (Rec: 11/04/23 08:18 SP [id number]) Ultrasound Therapy Treatment R bicep Patient Position Supine Coupling Medium Ultrasound Gel Applicator Size (cm2) 2cm Intensity Setting (w/cm2) 8 Comments less pain prox at coricoid process 10 min PT-OP-T Assessment and Plan Start: 09/26/23 16:19 Freq: Status: Active Protocol: Document 12/04/23 07:31 NM (Rec: 12/04/23 08:17 NM [id number]) Physical Therapy Assessment Goals Five Impairment activity Short Term Goal (STG) Pt will report at least 30% return to prior level of activity in order to demonstrate improved QOL, activity tolerance, and pain management 10/31/23: 50% reported back to PLOF 11/11/23: not performing aggravating activities, reports 50% with back to PLOF STG Duration 4 weeks MET Shelter Goal (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 10/31/23: 4+/5 with 2/10 pain with ER and initiating flexion 11/11/23: 4+/5 with pain initiating flexion, no pain with resisted ER LTG Duration 8 weeks PROGRESSING Three Impairment periscapular strength Impairment grossly 4/5 Flooring Grader Goal (LTG) Pt will improve periscapular strength to at least 4+/5 without compensation in order to demonstrate increased scapular control during arm elevation 10/31/23: 4+/5 for elevation, add, depression; 4/5 for abduction 2/10 pain 11/11/23: 4+/5 for all motions except 4/5 abd, 1/10 pain LTG Duration 8 weeks PROGRESSING Two Impairment AROM Impairment Apley IR scratch test: T12 Short Term Goal (STG) Pt will improve R Apley IR scratch test AROM to at least T10 in order to demonstrate improved AROM for ADLs. 10/31/23: T10, not painful but cramping STG Duration 4 weeks MET Shelter Goal (LTG) Pt will improve R Apley IR scratch test AROM to at least T8 in order to demonstrate improved AROM for ADLs, comparable to L Apley. 11/11/23: T8, IR apley, stretch but not painful LTG Duration 8 weeks MET One Impairment quickdash Impairment quickdash 18% Flooring Grader Goal (LTG) Pt will decrease quickdash score by at least 9% in order to demonstrate improved function and QOL 10/31/23: 15.9% 11/11/23: score 16 or 11.3% LTG Duration 8 weeks PROGRESSING Assessment Summary Assessment Pt tolerated well without increased pain during session. Demos occasional upper trapezius compensation during serratus wall slides with banded resistance posteriorly; requires moderate cues to decrease compensations and relax R shoulder during activity. Progressed bosu plank with ball toss for scapular stabilization. Pt demos increased winging of R scapula with bosu plank today compared to last session, minimal change with cueing. Continues to have soft tissue restrictions, especially of cervical paraspinals and periscapulars related to overhead activity outside of session. Educated on modifying activity when able and to take frequent breaks, use soft tissue mobilization and heat at home during HEP after working. Improved posterior humeral placement post mobilization. Fewer impingement symptoms overall compared to evaluation. Pt would benefit from skilled PT for R rotator cuff and periscapular strengthening in order to improve activity tolerance and symptom management. Physical Therapy Plan Frequency and Duration Frequency of Treatment 2x/Week Duration of treatment (weeks) 10 Plan of Care Start Date 11/11/23 Plan of Care End Date 01/24/24 Therapeutic Interventions Therapeutic Interventions Aquatic Therapy,Coordination Training,Home Exercise Program ,Joint Mobilizations,Manual Therapy,Neuromuscular Re- education,Orthotic/Prosthetic Management,Patient/Caregiver Education,Self-Care/Home Management,Sensory Integration ,Soft Tissue Mobilization, Taping,Therapeutic Activities, Therapeutic Exercises Modalities Cold Pack/Ice Massage,Electric Stimulation,Hot Packs, Iontophoresis,Traction- Mechanical,Ultrasound, Vasopneumatic Devices Other Referrals/Consults Referrals/Consults Recommended Recommend MRI and referral to ortho depending on pt progression with conservative treatment Next Visit Focus/Plan Next Note Type Treatment Note Next Visit Plan Continue with resisted ER/ press, upright row, serratus press/slide with resistance ( change angle), periscapular strengthening. Continue with posterior capsule mobility and stretching Trial pallof with increased resistance, address scapular winging *be aware of bicep irritation PN 12/24
--- NOTE | 2023-12-11 08:11 | PT.OTN ---
Current Diagnoses Pain in right shoulder (12/11/23) Other specified joint disorders, right shoulder (12/11/23) Physical Therapy Treatment Note PT-OP-A Visit Information Start: 09/26/23 16:19 Freq: Status: Active Protocol: Document 12/11/23 07:30 SP (Rec: 12/11/23 08:15 SP [id number]) Out-Patient Physical Therapy Visit Information Visit Information Visit Type Treatment Note Visit Start Time 07:30 Visit Stop Time 08:11 Visit Number 17 Number of END TRIMMER Visits 1 Evaluation Information Evaluation Date 09/27/23 PT-OP-B Current Condition Start: 09/26/23 16:19 Freq: Status: Active Protocol: Document 09/27/23 07:29 NM (Rec: 09/27/23 08:17 NM [id number]) Current Condition History of Current Condition Onset Date 3-4 months ago Current Complaints pain with throwing, resting pain History of Current Condition Pt presents with R shoulder pain beginning without known NOE several months ago. He currently had dx of impingement, likely from overuse. Recently received cortisone injection 3 weeks ago and is on anti- inflammatories, which helps. 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 Reports pain is most noticeable when lifting, driving. Has hx of R rotator cuff repair 20 years ago; states this feels the same. No MRI, but did an x-ray without conclusive results. Trying conservative treatment. Pt lifts weights every day but has decreased (previously power lifting, body weight lifting). 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 Worse with throwing, overhead pushing (pull ups are ok). 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 Sore all over but flora R shld. PT-OP-E Functional Tests Start: 09/26/23 16:19 Freq: Status: Active Protocol: Document 09/27/23 07:29 NM (Rec: 09/27/23 08:17 NM [id number]) Functional Tests Apley's Scratch Test Action 1- Left post cuff Action 1- Right post cuff, min discomfort Action 2- Left T5 Action 2- Right T4, min discomfort (/10) Action 3- Left T7 Action 3- Right T12 (most provocative, /10) PT-OP-F Manual Assessment Start: 09/26/23 16:19 Freq: Status: Active Protocol: Document 09/27/23 07:29 NM (Rec: 09/27/23 18:19 NM [id number]) Manual Assessments Soft Tissue Assessment Soft Tissue Mobility Assessment Increased tone of R upper trapezius, levator scapula, R cervical spine paraspinals. Restrictions of posterior cuff muscles, pectorals Joint Mobility Assessment Joint Mobility Assessment Anterior position R humeral head. Full bilateral shoulder AROM into flexion and abduction, IR. Limited shoulder ER AROM, flora with increased abduction. B scapulae 2 from spine. Delayed R scapulohumeral rhythm with arm elevation. Decreased R AC joint space, elevated R 1st rib PT-OP-H Neuro Start: 09/26/23 16:19 Freq: Status: Active Protocol: Document 09/27/23 07:29 NM (Rec: 09/27/23 18:19 NM [id number]) Sensation Evaluation Gross Sensation Gross Sensation WNL Comments Summary Comments BUE equally intact to light touch sensation PT-OP-J Posture/Palpation/Skin Start: 09/26/23 16:19 Freq: Status: Active Protocol: Document 09/27/23 07:29 NM (Rec: 09/27/23 18:19 NM [id number]) Posture Evaluation Position Standing Evaluation View posterior, lateral Head/C-Spine Posture Forward Head T-Spine Posture Neutral L-Spine Posture Decreased Lordosis Shoulder Posture (L) Rounded,(R) Rounded Scapula Posture (L) Protracted,(R) Protracted, (R) Elevated Arm Posture (L) Internally Rotated,(R) Internally Rotated Pelvis Posture Neutral Weight Distribution Balanced Hip Posture (L) Neutral,(R) Neutral Knee Posture (L) Genu Valgus,(R) Genu Valgus Patellar Posture (L) Superior,(R) Superior Ankle/Foot Posture (L) Neutral,(R) Neutral Palpation Assessment Location cervical spine Palpation Location paraspinals, upper trap, levator scapula Palpation Findings Soft Tissue Tightness,Spasm Palpation Details Spasm R upper trapezius, levator scapula, paraspinals R shoulder Palpation Location long head biceps, rotator cuff insertion, posterior cuff, pectoral Palpation Findings Soft Tissue Tightness, Tenderness Palpation Details Tenderness along long head biceps, rotator cuff insertion . Soft tissue tightness of rotator cuff muscles, pectorals PT-OP-K Range of Motion Start: 09/26/23 16:19 Freq: Status: Active Protocol: Document 11/11/23 07:31 NM (Rec: 11/11/23 08:14 NM [id number]) Shoulder Goniometric Range of Motion Shoulder R shoulder AROM Testing Position Sitting Flexion 175 Abduction 175 External Rotation at 90 degrees 80 Abduction Internal Rotation Behind Back (text) T8 Comments 09/27/23 (IE): 170 deg flex, 172 deg abd, 70 deg ER at 90 deg abd, 60 deg ER at 45 deg abd, 40 deg ER at 0 deg abd, 80 deg IR; pain with 45 deg abd (08/21) 10/31/23: 175 flex and abd, with impingement symptoms at end range, 85 deg at 90 deg abd, IR apley T10 11/11/23: T8 apley IR, 175 deg flex and abd (LH biceps pain), 80 deg ER PT-OP-L Special Tests Start: 09/26/23 16:19 Freq: Status: Active Protocol: Document 09/27/23 07:29 NM (Rec: 09/27/23 08:17 NM [id number]) Special Tests Cervical Spine Special Tests Distraction Test Results - Spurling's Test Test Results - Shoulder Special Tests IR/Horizontal ADD Impingement Test Results + Yahirrgason's Biceps Test Results + Comments painful, no loss of strength Speed's Biceps Test Results + Whitt Tho Impingement Test Results + Lift-Off Rotator Cuff Test Results + Comments painful, able to perform with AROM and against minimal resistance ER lag (rotator cuff) Test Results - Empty Can Test Results + Comments Min pain but reports full can worse PT-OP-M Strength Start: 09/26/23 16:19 Freq: Status: Active Protocol: Document 11/11/23 07:31 NM (Rec: 11/11/23 08:14 NM [id number]) Scapula Strength Scapula Manual Muscle Testing Right Elevation (C4) 4 Good Adduction 4 Good Abduction 4 Good Depression 4 Good Comments Minimal pain with resisted testing; no limits ROM 10/31/23: 4+/5 for elevation, add, depression; 4/5 for abduction 09/21 pain 11/11/23: 4+/5 for all motions except 4/5 abd, 08/21 pain Shoulder Strength Shoulder Manual Muscle Testing Right shoulder Flexion 4+ Good+ Extension 5 Normal Abduction (C5) 4+ Good+ External Rotation 4+ Good+ Internal Rotation 4+ Good+ Horizontal Abduction 4+ Good+ Horizontal Adduction 4+ Good+ Comments Moderate pain with resisted ER ; minimal pain with resisted flexion, IR, abduction 09/27/23: flex/ER/HABDHADD 4/5, ext 5/5, abd 4+/5 10/31/23: 4+/5 for all, min pain with resisted ER and flexion initially 11/11/23: 4+/5 for all, pain initiating flexion, no pain with resisted ER PT-OP-Q Treatments Start: 09/26/23 16:19 Freq: Status: Active Protocol: Document 12/11/23 07:30 SP (Rec: 12/11/23 08:15 SP [id number]) Therapeutic Exercises Supine Exercises abd/ER Supine Exercise Name 1. ABD /c ER 2. abd/ER into OH mid range Side right Resistance 3#>5# DB Reps/Minutes 10 reps each Comments no pain, tiring, tactile cues for posterior prox humerus/ elev distal humeru Prone Exercises ER Prone Exercise Name abd 90 deg prone Side right Resistance 7# Equipment Used 1/2 foam roller under humerus Reps/Minutes x20 Comments pain free, no impingement symptoms; good full 90 deg abd Prone T, W Prone Exercise Name for periscapular strengthening - Ts Ys Side bilateral Resistance 5# DB Equipment Used large green 65cm bhutanese ball Reps/Minutes 15 each pnfree Comments cued little ER and elbow ext Sidelying Exercises sidelying abduction Sidelying Exercise Name ROM to 90 no popping, FROM popping Side right Resistance 7 #> 5+3# db Reps/Minutes x15 Comments light pain end range ABD sidelying flexion Sidelying Exercise Name FROM Side right Resistance 7#> 5+3# DB Reps/Minutes x15 each Comments cued post scap setting, reports fatiguing Other Exercises serratus slide Other Exercise Name abduction with serratus slide, banded resistance Side right Resistance lvl 4 band (@prox humerus behind), small ball lat hum pink wt ball hand Equipment Used pillow case wall slide abd w/ serratus push into wall, resistance A>P Reps/Minutes 2x10 Comments pain free, cued to limit UT shrug and protract to limit winging Manual Therapy Treatment Soft Tissue Mobilization posterior trunk Body Location RTC, proximal bicep, lat, rhomboids Mobilization Type Cross-Friction,Rolling, Strumming,Sustained Pressure Intensity/Depth Moderate Body Position Sidelying Comments Decreased winging with rolling and sustained pressure. Less biceps tenderness Joint Mobilizations R Glenohumeral Joint jt at 90 deg abd Direction Post glide, posterior gapping Grade III Comments 1. Post glide with ER and IR bias to improve mobility 2. With functional movement into IR with abduction at 90 deg d/t increased R ant shoulder tightness 3. posterior glide d/t increased anterior humeral position, performed with functional IR with cue to keep posterior shoulder on table PT-OP-R Modalities Start: 09/26/23 16:19 Freq: Status: Active Protocol: Document 11/04/23 07:33 SP (Rec: 11/04/23 08:18 SP [id number]) Ultrasound Therapy Treatment R bicep Patient Position Supine Coupling Medium Ultrasound Gel Applicator Size (cm2) 2cm Intensity Setting (w/cm2) 8 Comments less pain prox at coricoid process 10 min PT-OP-T Assessment and Plan Start: 09/26/23 16:19 Freq: Status: Active Protocol: Document 12/11/23 07:30 SP (Rec: 12/11/23 08:15 SP [id number]) Physical Therapy Assessment Goals Five Impairment activity Short Term Goal (STG) Pt will report at least 30% return to prior level of activity in order to demonstrate improved QOL, activity tolerance, and pain management 10/31/23: 50% reported back to PLOF 11/11/23: not performing aggravating activities, reports 50% with back to PLOF STG Duration 4 weeks MET Rotary Drier Feeder Goal (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 10/31/23: 4+/5 with 2/10 pain with ER and initiating flexion 11/11/23: 4+/5 with pain initiating flexion, no pain with resisted ER LTG Duration 8 weeks PROGRESSING Three Impairment periscapular strength Impairment grossly 4/5 Shelter Goal (LTG) Pt will improve periscapular strength to at least 4+/5 without compensation in order to demonstrate increased scapular control during arm elevation 10/31/23: 4+/5 for elevation, add, depression; 4/5 for abduction 2/10 pain 11/11/23: 4+/5 for all motions except 4/5 abd, 1/10 pain LTG Duration 8 weeks PROGRESSING Two Impairment AROM Impairment Apley IR scratch test: T12 Short Term Goal (STG) Pt will improve R Apley IR scratch test AROM to at least T10 in order to demonstrate improved AROM for ADLs. 10/31/23: T10, not painful but cramping STG Duration 4 weeks MET Rotary Drier Feeder Goal (LTG) Pt will improve R Apley IR scratch test AROM to at least T8 in order to demonstrate improved AROM for ADLs, comparable to L Apley. 11/11/23: T8, IR apley, stretch but not painful LTG Duration 8 weeks MET One Impairment quickdash Impairment quickdash 18% Shelter Goal (LTG) Pt will decrease quickdash score by at least 9% in order to demonstrate improved function and QOL 10/31/23: 15.9% 11/11/23: score 16 or 11.3% LTG Duration 8 weeks PROGRESSING Assessment Summary Assessment Pt improved anterior R shld tightness post manual and AAROM use DBs into ABD& ER. He continues to tolerate ther ex without increased pain during tx. Tactile and VCs for serratus activiation during some exercises to reduce winging demonstrates. He reports his house work is coming to a close and hope will see reduction in irritation to R shld and give rest and true response of how R shld doing. May return to for further assessment. Physical Therapy Plan Frequency and Duration Frequency of Treatment 2x/Week Duration of treatment (weeks) 10 Plan of Care Start Date 11/11/23 Plan of Care End Date 01/24/24 Therapeutic Interventions Therapeutic Interventions Aquatic Therapy,Coordination Training,Home Exercise Program ,Joint Mobilizations,Manual Therapy,Neuromuscular Re- education,Orthotic/Prosthetic Management,Patient/Caregiver Education,Self-Care/Home Management,Sensory Integration ,Soft Tissue Mobilization, Taping,Therapeutic Activities, Therapeutic Exercises Modalities Cold Pack/Ice Massage,Electric Stimulation,Hot Packs, Iontophoresis,Traction- Mechanical,Ultrasound, Vasopneumatic Devices Other Referrals/Consults Referrals/Consults Recommended Recommend MRI and referral to ortho depending on pt progression with conservative treatment Next Visit Focus/Plan Next Note Type Treatment Note Next Visit Plan Continue with resisted Serratus Anterior, ER/press, upright row, serratus press/ slide with resistance (change angle), periscapular strengthening. Continue with posterior capsule mobility and stretching Trial pallof with increased resistance, address scapular winging *be aware of bicep irritation PN 12/24
--- NOTE | 2023-12-25 08:17 | PT.OTN ---
Current Diagnoses Pain in right shoulder (12/25/23) Other specified joint disorders, right shoulder (12/25/23) Physical Therapy Treatment Note PT-OP-A Visit Information Start: 09/26/23 16:19 Freq: Status: Active Protocol: Document 12/25/23 07:30 NM (Rec: 12/25/23 08:16 NM [id number]) Out-Patient Physical Therapy Visit Information Visit Information Visit Type Treatment Note Visit Start Time 07:32 Visit Stop Time 08:15 Visit Number [id number] Evaluation Information Evaluation Date 09/27/23 PT-OP-B Current Condition Start: 09/26/23 16:19 Freq: Status: Active Protocol: Document 09/27/23 07:29 NM (Rec: 09/27/23 08:17 NM [id number]) Current Condition History of Current Condition Onset Date 3-4 months ago Current Complaints pain with throwing, resting pain History of Current Condition Pt presents with R shoulder pain beginning without known NOE several months ago. He currently had dx of impingement, likely from overuse. Recently received cortisone injection 3 weeks ago and is on anti- inflammatories, which helps. 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 Reports pain is most noticeable when lifting, driving. Has hx of R rotator cuff repair 20 years ago; states this feels the same. No MRI, but did an x-ray without conclusive results. Trying conservative treatment. Pt lifts weights every day but has decreased (previously power lifting, body weight lifting). 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 Worse with throwing, overhead pushing (pull ups are ok). 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 He reports today that his shoulder is sore. He does not have a follow up with his doctor. He reports that his neck is hurting on the R side, thinks that it's compensating . PT-OP-E Functional Tests Start: 09/26/23 16:19 Freq: Status: Active Protocol: Document 09/27/23 07:29 NM (Rec: 09/27/23 08:17 NM [id number]) Functional Tests Apley's Scratch Test Action 1- Left post cuff Action 1- Right post cuff, min discomfort Action 2- Left T5 Action 2- Right T4, min discomfort (1/10) Action 3- Left T7 Action 3- Right T12 (most provocative, 3/10) PT-OP-F Manual Assessment Start: 09/26/23 16:19 Freq: Status: Active Protocol: Document 09/27/23 07:29 NM (Rec: 09/27/23 18:19 NM [id number]) Manual Assessments Soft Tissue Assessment Soft Tissue Mobility Assessment Increased tone of R upper trapezius, levator scapula, R cervical spine paraspinals. Restrictions of posterior cuff muscles, pectorals Joint Mobility Assessment Joint Mobility Assessment Anterior position R humeral head. Full bilateral shoulder AROM into flexion and abduction, IR. Limited shoulder ER AROM, flora with increased abduction. B scapulae 2 from spine. Delayed R scapulohumeral rhythm with arm elevation. Decreased R AC joint space, elevated R 1st rib PT-OP-H Neuro Start: 09/26/23 16:19 Freq: Status: Active Protocol: Document 09/27/23 07:29 NM (Rec: 09/27/23 18:19 NM [id number]) Sensation Evaluation Gross Sensation Gross Sensation WNL Comments Summary Comments BUE equally intact to light touch sensation PT-OP-J Posture/Palpation/Skin Start: 09/26/23 16:19 Freq: Status: Active Protocol: Document 09/27/23 07:29 NM (Rec: 09/27/23 18:19 NM [id number]) Posture Evaluation Position Standing Evaluation View posterior, lateral Head/C-Spine Posture Forward Head T-Spine Posture Neutral L-Spine Posture Decreased Lordosis Shoulder Posture (L) Rounded,(R) Rounded Scapula Posture (L) Protracted,(R) Protracted, (R) Elevated Arm Posture (L) Internally Rotated,(R) Internally Rotated Pelvis Posture Neutral Weight Distribution Balanced Hip Posture (L) Neutral,(R) Neutral Knee Posture (L) Genu Valgus,(R) Genu Valgus Patellar Posture (L) Superior,(R) Superior Ankle/Foot Posture (L) Neutral,(R) Neutral Palpation Assessment Location cervical spine Palpation Location paraspinals, upper trap, levator scapula Palpation Findings Soft Tissue Tightness,Spasm Palpation Details Spasm R upper trapezius, levator scapula, paraspinals R shoulder Palpation Location long head biceps, rotator cuff insertion, posterior cuff, pectoral Palpation Findings Soft Tissue Tightness, Tenderness Palpation Details Tenderness along long head biceps, rotator cuff insertion . Soft tissue tightness of rotator cuff muscles, pectorals PT-OP-K Range of Motion Start: 09/26/23 16:19 Freq: Status: Active Protocol: Document 11/11/23 07:31 NM (Rec: 11/11/23 08:14 NM [id number]) Shoulder Goniometric Range of Motion Shoulder R shoulder AROM Testing Position Sitting Flexion 175 Abduction 175 External Rotation at 90 degrees 80 Abduction Internal Rotation Behind Back (text) T8 Comments 09/27/23 (IE): 170 deg flex, 172 deg abd, 70 deg ER at 90 deg abd, 60 deg ER at 45 deg abd, 40 deg ER at 0 deg abd, 80 deg IR; pain with 45 deg abd (08/21) 10/31/23: 175 flex and abd, with impingement symptoms at end range, 85 deg at 90 deg abd, IR apley T10 11/11/23: T8 apley IR, 175 deg flex and abd (LH biceps pain), 80 deg ER PT-OP-L Special Tests Start: 09/26/23 16:19 Freq: Status: Active Protocol: Document 09/27/23 07:29 NM (Rec: 09/27/23 08:17 NM [id number]) Special Tests Cervical Spine Special Tests Distraction Test Results - Spurling's Test Test Results - Shoulder Special Tests IR/Horizontal ADD Impingement Test Results + Yergason's Biceps Test Results + Comments painful, no loss of strength Speed's Biceps Test Results + Whitt Tho Impingement Test Results + Lift-Off Rotator Cuff Test Results + Comments painful, able to perform with AROM and against minimal resistance ER lag (rotator cuff) Test Results - Empty Can Test Results + Comments Min pain but reports full can worse PT-OP-M Strength Start: 09/26/23 16:19 Freq: Status: Active Protocol: Document 11/11/23 07:31 NM (Rec: 11/11/23 08:14 NM [id number]) Scapula Strength Scapula Manual Muscle Testing Right Elevation (C4) 4 Good Adduction 4 Good Abduction 4 Good Depression 4 Good Comments Minimal pain with resisted testing; no limits ROM 10/31/23: 4+/5 for elevation, add, depression; 4/5 for abduction 09/21 pain 11/11/23: 4+/5 for all motions except 4/5 abd, 08/21 pain Shoulder Strength Shoulder Manual Muscle Testing Right shoulder Flexion 4+ Good+ Extension 5 Normal Abduction (C5) 4+ Good+ External Rotation 4+ Good+ Internal Rotation 4+ Good+ Horizontal Abduction 4+ Good+ Horizontal Adduction 4+ Good+ Comments Moderate pain with resisted ER ; minimal pain with resisted flexion, IR, abduction 09/27/23: flex/ER/HABDHADD 4/5, ext 5/5, abd 4+/5 10/31/23: 4+/5 for all, min pain with resisted ER and flexion initially 11/11/23: 4+/5 for all, pain initiating flexion, no pain with resisted ER PT-OP-Q Treatments Start: 09/26/23 16:19 Freq: Status: Active Protocol: Document 12/25/23 07:30 NM (Rec: 12/25/23 08:16 NM [id number]) Therapeutic Exercises Prone Exercises thoracic extension Prone Exercise Name on australian ball in quadruped Side bilateral Resistance AROM Equipment Used large green swissball Reps/Minutes 10x5 Comments w/ shldr flexion & serratus push; post manual tx Prone T, W Prone Exercise Name for periscapular strengthening - Ts Ys Ws Side bilateral Resistance 5# plate Equipment Used large green 65cm aust[place]ian ball Reps/Minutes 15 ea Comments cued little ER and elbow ext, neutral cervical spine, pain free Sitting Exercises cervical spine stretches Sitting Exercise Name 1. UT, 2. LS, 3. SCM/scalene stretch Side bilateral Equipment Used opposite hand tensioning at neck/clavicle for LS Reps/Minutes 1x60 ea Comments reports stretch, pain free; post manual tx, btwn exercise, feels tight Standing Exercises plank Standing Exercise Name dolphin plank for serratus activation Side bilateral Resistance AROM Equipment Used foam pad under elbows ( modified plank) Reps/Minutes 2x10 with 3 hold Comments cued push forearms into pad, no scap winging R IR Standing Exercise Name towel stretch Side right Equipment Used towel behind back Reps/Minutes 2x30 Comments end of session Manual Therapy Treatment Soft Tissue Mobilization posterior trunk Body Location RTC, proximal bicep, lat, rhomboids Mobilization Type Cross-Friction,Rolling, Strumming,Sustained Pressure Intensity/Depth Moderate Body Position Sidelying Comments Decreased winging with rolling and sustained pressure. Less biceps tenderness cervical spine Body Location UT, LS, scalene, SCM Mobilization Type Oscillations,Rolling,Sustained Pressure Intensity/Depth Moderate Body Position Sidelying Comments Cued for breathing with mobilization, muscle relaxation. Increased tightness of R UT, SCM, LS, paraspinals bilaterally Joint Mobilizations R Glenohumeral Joint jt at 90 deg abd Direction Post glide, posterior gapping Grade III Comments Post glide with IR bias to improve mobility with functional movement into IR with abduction at 90 deg d/t increased R ant shoulder tightness. Then manual IR stretch to pt tolerance at 90 deg abd. Followed by posterior gapping to decrease anterior translation of humeral head 1st rib Joint R 1st rib Direction caudal / c exhale Grade II Body Position Hooklying Reps/Duration 1x10 Comments Performed after cervical spine STM, cued for breathing. Decreased tension after stretching SCM, UT, scalenes but still slightly elevated PT-OP-R Modalities Start: 09/26/23 16:19 Freq: Status: Active Protocol: Document 11/04/23 07:33 SP (Rec: 11/04/23 08:18 SP [id number]) Ultrasound Therapy Treatment R bicep Patient Position Supine Coupling Medium Ultrasound Gel Applicator Size (cm2) 2cm Intensity Setting (w/cm2) 8 Comments less pain prox at coricoid process 10 min PT-OP-T Assessment and Plan Start: 09/26/23 16:19 Freq: Status: Active Protocol: Document 12/25/23 07:30 NM (Rec: 12/25/23 08:16 NM [id number]) Physical Therapy Assessment Goals Five Impairment activity Short Term Goal (STG) Pt will report at least 30% return to prior level of activity in order to demonstrate improved QOL, activity tolerance, and pain management 10/31/23: 50% reported back to PLOF 11/11/23: not performing aggravating activities, reports 50% with back to PLOF STG Duration 4 weeks MET Mcfp Goal (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 10/31/23: 4+/5 with 2/10 pain with ER and initiating flexion 11/11/23: 4+/5 with pain initiating flexion, no pain with resisted ER LTG Duration 8 weeks PROGRESSING Three Impairment periscapular strength Impairment grossly 4/5 Dog Licenser Goal (LTG) Pt will improve periscapular strength to at least 4+/5 without compensation in order to demonstrate increased scapular control during arm elevation 10/31/23: 4+/5 for elevation, add, depression; 4/5 for abduction 2/10 pain 11/11/23: 4+/5 for all motions except 4/5 abd, 1/10 pain LTG Duration 8 weeks PROGRESSING Two Impairment AROM Impairment Apley IR scratch test: T12 Short Term Goal (STG) Pt will improve R Apley IR scratch test AROM to at least T10 in order to demonstrate improved AROM for ADLs. 10/31/23: T10, not painful but cramping STG Duration 4 weeks MET Dog Licenser Goal (LTG) Pt will improve R Apley IR scratch test AROM to at least T8 in order to demonstrate improved AROM for ADLs, comparable to L Apley. 11/11/23: T8, IR apley, stretch but not painful LTG Duration 8 weeks MET One Impairment quickdash Impairment quickdash 18% Mcfp Goal (LTG) Pt will decrease quickdash score by at least 9% in order to demonstrate improved function and QOL 10/31/23: 15.9% 11/11/23: score 16 or 11.3% LTG Duration 8 weeks PROGRESSING Assessment Summary Assessment Pt continues to have tenderness with R shoulder IR, anterior shoulder tightness, and cervical spine tightness. Manual treatment today emphasizing improving R shoulder IR at 90 deg abd and decreasing soft tissue restrictions of R shoulder and cervical spine paraspinals. Pt has elevated 1st rib today, minimal change post manual treatment. Continued with improving thoracic mobility and serratus strengthening. Initiated dolphin plank for greater scapular control with serratus anterior. Cued to minimize scapular winging. Pt continues to have good tolerance for therapuetic exercise. PT discussed plan of care with pt, recommending pt continue with modifying overhead activity to limit R shoulder irritation and following up with ortho specialist. Pt would benefit from skilled PT for pain management and R scapular control. Physical Therapy Plan Frequency and Duration Frequency of Treatment 2x/Week Duration of treatment (weeks) 10 Plan of Care Start Date 11/11/23 Plan of Care End Date 01/24/24 Therapeutic Interventions Therapeutic Interventions Aquatic Therapy,Coordination Training,Home Exercise Program ,Joint Mobilizations,Manual Therapy,Neuromuscular Re- education,Orthotic/Prosthetic Management,Patient/Caregiver Education,Self-Care/Home Management,Sensory Integration ,Soft Tissue Mobilization, Taping,Therapeutic Activities, Therapeutic Exercises Modalities Cold Pack/Ice Massage,Electric Stimulation,Hot Packs, Iontophoresis,Traction- Mechanical,Ultrasound, Vasopneumatic Devices Other Referrals/Consults Referrals/Consults Recommended Recommend MRI and referral to ortho depending on pt progression with conservative treatment Next Visit Focus/Plan Next Note Type Progress Note Next Visit Plan Dolphin plank, serratus press, resisted IR. Continue with posterior capsule mobility and stretching Trial pallof with increased resistance, address scapular winging *be aware of bicep irritation PN 12/24
--- NOTE | 2023-12-27 09:20 | PT.OTN ---
Current Diagnoses Pain in right shoulder (12/27/23) Other specified joint disorders, right shoulder (12/27/23) Physical Therapy Treatment Note PT-OP-A Visit Information Start: 09/26/23 16:19 Freq: Status: Active Protocol: Document 12/27/23 07:33 NM (Rec: 12/27/23 09:20 NM [id number]) Out-Patient Physical Therapy Visit Information Visit Information Visit Type Progress Note Visit Start Time 07:33 Visit Stop Time 08:15 Visit Number 19 Evaluation Information Evaluation Date 09/27/23 PT-OP-B Current Condition Start: 09/26/23 16:19 Freq: Status: Active Protocol: Document 09/27/23 07:29 NM (Rec: 09/27/23 08:17 NM [id number]) Current Condition History of Current Condition Onset Date 3-4 months ago Current Complaints pain with throwing, resting pain History of Current Condition Pt presents with R shoulder pain beginning without known NOE several months ago. He currently had dx of impingement, likely from overuse. Recently received cortisone injection 3 weeks ago and is on anti- inflammatories, which helps. 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 Reports pain is most noticeable when lifting, driving. Has hx of R rotator cuff repair 20 years ago; states this feels the same. No MRI, but did an x-ray without conclusive results. Trying conservative treatment. Pt lifts weights every day but has decreased (previously power lifting, body weight lifting). 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 Worse with throwing, overhead pushing (pull ups are ok). 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 PT-OP-E Functional Tests Start: 09/26/23 16:19 Freq: Status: Active Protocol: Document 09/27/23 07:29 NM (Rec: 09/27/23 08:17 NM [id number]) Functional Tests Apley's Scratch Test Action 1- Left post cuff Action 1- Right post cuff, min discomfort Action 2- Left T5 Action 2- Right T4, min discomfort (/10) Action 3- Left T7 Action 3- Right T12 (most provocative, /10) PT-OP-F Manual Assessment Start: 09/26/23 16:19 Freq: Status: Active Protocol: Document 09/27/23 07:29 NM (Rec: 09/27/23 18:19 NM [id number]) Manual Assessments Soft Tissue Assessment Soft Tissue Mobility Assessment Increased tone of R upper trapezius, levator scapula, R cervical spine paraspinals. Restrictions of posterior cuff muscles, pectorals Joint Mobility Assessment Joint Mobility Assessment Anterior position R humeral head. Full bilateral shoulder AROM into flexion and abduction, IR. Limited shoulder ER AROM, flora with increased abduction. B scapulae 2 from spine. Delayed R scapulohumeral rhythm with arm elevation. Decreased R AC joint space, elevated R 1st rib PT-OP-H Neuro Start: 09/26/23 16:19 Freq: Status: Active Protocol: Document 09/27/23 07:29 NM (Rec: 09/27/23 18:19 NM [id number]) Sensation Evaluation Gross Sensation Gross Sensation WNL Comments Summary Comments BUE equally intact to light touch sensation PT-OP-J Posture/Palpation/Skin Start: 09/26/23 16:19 Freq: Status: Active Protocol: Document 09/27/23 07:29 NM (Rec: 09/27/23 18:19 NM [id number]) Posture Evaluation Position Standing Evaluation View posterior, lateral Head/C-Spine Posture Forward Head T-Spine Posture Neutral L-Spine Posture Decreased Lordosis Shoulder Posture (L) Rounded,(R) Rounded Scapula Posture (L) Protracted,(R) Protracted, (R) Elevated Arm Posture (L) Internally Rotated,(R) Internally Rotated Pelvis Posture Neutral Weight Distribution Balanced Hip Posture (L) Neutral,(R) Neutral Knee Posture (L) Genu Valgus,(R) Genu Valgus Patellar Posture (L) Superior,(R) Superior Ankle/Foot Posture (L) Neutral,(R) Neutral Palpation Assessment Location cervical spine Palpation Location paraspinals, upper trap, levator scapula Palpation Findings Soft Tissue Tightness,Spasm Palpation Details Spasm R upper trapezius, levator scapula, paraspinals R shoulder Palpation Location long head biceps, rotator cuff insertion, posterior cuff, pectoral Palpation Findings Soft Tissue Tightness, Tenderness Palpation Details Tenderness along long head biceps, rotator cuff insertion . Soft tissue tightness of rotator cuff muscles, pectorals PT-OP-K Range of Motion Start: 09/26/23 16:19 Freq: Status: Active Protocol: Document 12/27/23 07:33 NM (Rec: 12/27/23 09:20 NM [id number]) Shoulder Goniometric Range of Motion Shoulder R shoulder AROM Testing Position Sitting Flexion 175 Abduction 175 External Rotation at 90 degrees 80 Abduction Internal Rotation Behind Back (text) T8 Comments 09/27/23 (IE): 170 deg flex, 172 deg abd, 70 deg ER at 90 deg abd, 60 deg ER at 45 deg abd, 40 deg ER at 0 deg abd, 80 deg IR; pain with 45 deg abd (08/21) 10/31/23: 175 flex and abd, with impingement symptoms at end range, 85 deg at 90 deg abd, IR apley T10 11/11/23: T8 apley IR, 175 deg flex and abd (LH biceps pain), 80 deg ER 11/27/23: 65 deg IR, 85 deg ER, 175 deg flex and abd, T5 ER, T9 IR (no pain) PT-OP-L Special Tests Start: 09/26/23 16:19 Freq: Status: Active Protocol: Document 09/27/23 07:29 NM (Rec: 09/27/23 08:17 NM [id number]) Special Tests Cervical Spine Special Tests Distraction Test Results - Spurling's Test Test Results - Shoulder Special Tests IR/Horizontal ADD Impingement Test Results + Mercedes's Biceps Test Results + Comments painful, no loss of strength Speed's Biceps Test Results + Whitt Tho Impingement Test Results + Lift-Off Rotator Cuff Test Results + Comments painful, able to perform with AROM and against minimal resistance ER lag (rotator cuff) Test Results - Empty Can Test Results + Comments Min pain but reports full can worse PT-OP-M Strength Start: 09/26/23 16:19 Freq: Status: Active Protocol: Document 12/27/23 07:33 NM (Rec: 12/27/23 09:20 NM [id number]) Shoulder Strength Shoulder Manual Muscle Testing Right shoulder Flexion 4+ Good+ Extension 5 Normal Abduction (C5) 4+ Good+ External Rotation 4+ Good+ Internal Rotation 4+ Good+ Horizontal Abduction 4+ Good+ Horizontal Adduction 4+ Good+ Comments Moderate pain with resisted ER ; minimal pain with resisted flexion, IR, abduction 09/27/23: flex/ER/HABDHADD 4/5, ext 5/5, abd 4+/5 10/31/23: 4+/5 for all, min pain with resisted ER and flexion initially 11/11/23: 4+/5 for all, pain initiating flexion, no pain with resisted ER 12/27/23: 4+/5, pain free PT-OP-Q Treatments Start: 09/26/23 16:19 Freq: Status: Active Protocol: Document 12/27/23 07:33 NM (Rec: 12/27/23 09:20 NM [id number]) Therapeutic Exercises Prone Exercises IR Prone Exercise Name from 90 deg abd Side right Resistance AROM > 2# tball Equipment Used humerus elevated on towel roll Reps/Minutes 1x10 AROM > 2x10 2# Comments pain free; post manual tx Y lift off Prone Exercise Name prone swimmers: Y > T > I liftover (periscapulars) Side bilateral Resistance AROM> 2# tball Equipment Used mat, yoga blocks Reps/Minutes 2x12 Comments pain free; good scap control Standing Exercises plank Standing Exercise Name dolphin plank for serratus activation, forearm climb Side bilateral Resistance AROM Equipment Used foam pad under elbows ( modified plank) Reps/Minutes 1x15 with 3 hold Comments cued push forearms into pad, no scap winging PNF Standing Exercise Name D2 with IR bias Side right Resistance lvl 5 band (blue) Reps/Minutes 2x15 Comments pain free; end of session R IR Standing Exercise Name towel stretch Side right Equipment Used towel behind back Reps/Minutes 1x60 Comments end of session; reports feels a lot better Manual Therapy Treatment Soft Tissue Mobilization posterior trunk Body Location RTC, proximal bicep, lat, rhomboids Mobilization Type Cross-Friction,Rolling, Strumming,Sustained Pressure Intensity/Depth Moderate Body Position Sidelying Comments Trigger point at teres/lat, palpable relaxation w/ sustained pressure. Cued for breathing, decrease tension. Less tenderness of rotator cuff, biceps cervical spine Body Location UT, LS, scalene, SCM Mobilization Type Oscillations,Rolling,Sustained Pressure Intensity/Depth Moderate Body Position Sitting Comments MWM of LS and UT, cued for breathing with mobilization, muscle relaxation. Less tightness than previous session, improed further post manual tx Joint Mobilizations R AC joint Direction post on scapular spine, ant on clavicle Grade II Body Position Sidelying Reps/Duration 1x10 ea Comments Improved mobility post STM and mobilization, slight tenderness with anterior glide on clavicle 1st rib Joint R 1st rib Direction caudal / c exhale Grade III Body Position Hooklying Reps/Duration 1x10 Comments Post cervical spine STM, cued for breathing. Less elevated today PT-OP-R Modalities Start: 09/26/23 16:19 Freq: Status: Active Protocol: Document 11/04/23 07:33 SP (Rec: 11/04/23 08:18 SP [id number]) Ultrasound Therapy Treatment R bicep Patient Position Supine Coupling Medium Ultrasound Gel Applicator Size (cm2) 2cm Intensity Setting (w/cm2) 8 Comments less pain prox at coricoid process 10 min PT-OP-T Assessment and Plan Start: 09/26/23 16:19 Freq: Status: Active Protocol: Document 12/27/23 07:33 NM (Rec: 12/27/23 09:20 NM [id number]) Physical Therapy Assessment Goals Five Impairment activity Short Term Goal (STG) Pt will report at least 30% return to prior level of activity in order to demonstrate improved QOL, activity tolerance, and pain management 10/31/23: 50% reported back to PLOF 11/11/23: not performing aggravating activities, reports 50% with back to PLOF STG Duration 4 weeks MET Mcc Goal (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 10/31/23: 4+/5 with 2/10 pain with ER and initiating flexion 11/11/23: 4+/5 with pain initiating flexion, no pain with resisted ER 12/27/23: 4+/5, pain free all motions LTG Duration 8 weeks MET Three Impairment periscapular strength Impairment grossly 4/5 Mcc Goal (LTG) Pt will improve periscapular strength to at least 4+/5 without compensation in order to demonstrate increased scapular control during arm elevation 10/31/23: 4+/5 for elevation, add, depression; 4/5 for abduction 2/10 pain 11/11/23: 4+/5 for all motions except 4/5 abd, 1/10 pain 12/27/23: 4+/5, minimal UT compensation, pain free for most motions, prn pain with abduction LTG Duration 8 weeks PARTIALLY MET, PROGRESSING Two Impairment AROM Impairment Apley IR scratch test: T12 Short Term Goal (STG) Pt will improve R Apley IR scratch test AROM to at least T10 in order to demonstrate improved AROM for ADLs. 10/31/23: T10, not painful but cramping STG Duration 4 weeks MET Android Software Engineer Goal (LTG) Pt will improve R Apley IR scratch test AROM to at least T8 in order to demonstrate improved AROM for ADLs, comparable to L Apley. 11/11/23: T8, IR apley, stretch but not painful LTG Duration 8 weeks MET One Impairment quickdash Impairment quickdash 18% Android Software Engineer Goal (LTG) Pt will decrease quickdash score by at least 9% in order to demonstrate improved function and QOL 10/31/23: 15.9% 11/11/23: score 16 or 11.3% 12/27/23: 15 or 9% LTG Duration 8 weeks MET Assessment Summary Assessment Pt tolerated session well. Emphasis on improving R shoulder IR strength and mobility, in addition to periscapular control during long lever movements. Initiated prone UE extended lift overs, continued with dolphin plank. Pt with less anterior shoulder tightness with IR up to 90 deg abduction , particularly at end of session. Changed PNF patterns to IR bias for continued emphasis on diagonal rotational pattern with overhead elevation. Pt making good progress toward goals and pain management with activity modification and manual treatment. Demos less soft tissue tightness in cervical spine and rotator cuff this session. Physical Therapy Plan Frequency and Duration Frequency of Treatment 2x/Week Duration of treatment (weeks) 10 Plan of Care Start Date 11/11/23 Plan of Care End Date 01/24/24 Therapeutic Interventions Therapeutic Interventions Aquatic Therapy,Coordination Training,Home Exercise Program ,Joint Mobilizations,Manual Therapy,Neuromuscular Re- education,Orthotic/Prosthetic Management,Patient/Caregiver Education,Self-Care/Home Management,Sensory Integration ,Soft Tissue Mobilization, Taping,Therapeutic Activities, Therapeutic Exercises Modalities Cold Pack/Ice Massage,Electric Stimulation,Hot Packs, Iontophoresis,Traction- Mechanical,Ultrasound, Vasopneumatic Devices Other Referrals/Consults Referrals/Consults Recommended Recommend MRI and referral to ortho depending on pt progression with conservative treatment Next Visit Focus/Plan Next Note Type Treatment Note Next Visit Plan Dolphin plank, serratus press, resisted IR. Continue with posterior capsule mobility and stretching Trial pallof with increased resistance, address scapular winging *be aware of bicep irritation PN 12/24
--- NOTE | 2023-12-31 11:56 | PT.OTN ---
Current Diagnoses Pain in right shoulder (12/31/23) Other specified joint disorders, right shoulder (12/31/23) Physical Therapy Treatment Note PT-OP-A Visit Information Start: 09/26/23 16:19 Freq: Status: Active Protocol: Document 12/31/23 07:30 NM (Rec: 12/31/23 08:18 NM [id number]) Out-Patient Physical Therapy Visit Information Visit Information Visit Type Treatment Note Visit Start Time 07:34 Visit Stop Time 08:14 Visit Number 20 Evaluation Information Evaluation Date 09/27/23 PT-OP-B Current Condition Start: 09/26/23 16:19 Freq: Status: Active Protocol: Document 09/27/23 07:29 NM (Rec: 09/27/23 08:17 NM [id number]) Current Condition History of Current Condition Onset Date 3-4 months ago Current Complaints pain with throwing, resting pain History of Current Condition Pt presents with R shoulder pain beginning without known NOE several months ago. He currently had dx of impingement, likely from overuse. Recently received cortisone injection 3 weeks ago and is on anti- inflammatories, which helps. 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 Reports pain is most noticeable when lifting, driving. Has hx of R rotator cuff repair 20 years ago; states this feels the same. No MRI, but did an x-ray without conclusive results. Trying conservative treatment. Pt lifts weights every day but has decreased (previously power lifting, body weight lifting). 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 Worse with throwing, overhead pushing (pull ups are ok). 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 Pt still performing a lot of painting, overhead motions. States not a lot of strain. Reports shoulder not bothering him. Reports no difficulty with exercises. PT-OP-E Functional Tests Start: 09/26/23 16:19 Freq: Status: Active Protocol: Document 09/27/23 07:29 NM (Rec: 09/27/23 08:17 NM [id number]) Functional Tests Apley's Scratch Test Action 1- Left post cuff Action 1- Right post cuff, min discomfort Action 2- Left T5 Action 2- Right T4, min discomfort (/10) Action 3- Left T7 Action 3- Right T12 (most provocative, 3/10) PT-OP-F Manual Assessment Start: 09/26/23 16:19 Freq: Status: Active Protocol: Document 09/27/23 07:29 NM (Rec: 09/27/23 18:19 NM [id number]) Manual Assessments Soft Tissue Assessment Soft Tissue Mobility Assessment Increased tone of R upper trapezius, levator scapula, R cervical spine paraspinals. Restrictions of posterior cuff muscles, pectorals Joint Mobility Assessment Joint Mobility Assessment Anterior position R humeral head. Full bilateral shoulder AROM into flexion and abduction, IR. Limited shoulder ER AROM, flora with increased abduction. B scapulae 2 from spine. Delayed R scapulohumeral rhythm with arm elevation. Decreased R AC joint space, elevated R 1st rib PT-OP-H Neuro Start: 09/26/23 16:19 Freq: Status: Active Protocol: Document 09/27/23 07:29 NM (Rec: 09/27/23 18:19 NM [id number]) Sensation Evaluation Gross Sensation Gross Sensation WNL Comments Summary Comments BUE equally intact to light touch sensation PT-OP-J Posture/Palpation/Skin Start: 09/26/23 16:19 Freq: Status: Active Protocol: Document 09/27/23 07:29 NM (Rec: 09/27/23 18:19 NM [id number]) Posture Evaluation Position Standing Evaluation View posterior, lateral Head/C-Spine Posture Forward Head T-Spine Posture Neutral L-Spine Posture Decreased Lordosis Shoulder Posture (L) Rounded,(R) Rounded Scapula Posture (L) Protracted,(R) Protracted, (R) Elevated Arm Posture (L) Internally Rotated,(R) Internally Rotated Pelvis Posture Neutral Weight Distribution Balanced Hip Posture (L) Neutral,(R) Neutral Knee Posture (L) Genu Valgus,(R) Genu Valgus Patellar Posture (L) Superior,(R) Superior Ankle/Foot Posture (L) Neutral,(R) Neutral Palpation Assessment Location cervical spine Palpation Location paraspinals, upper trap, levator scapula Palpation Findings Soft Tissue Tightness,Spasm Palpation Details Spasm R upper trapezius, levator scapula, paraspinals R shoulder Palpation Location long head biceps, rotator cuff insertion, posterior cuff, pectoral Palpation Findings Soft Tissue Tightness, Tenderness Palpation Details Tenderness along long head biceps, rotator cuff insertion . Soft tissue tightness of rotator cuff muscles, pectorals PT-OP-K Range of Motion Start: 09/26/23 16:19 Freq: Status: Active Protocol: Document 12/27/23 07:33 NM (Rec: 12/27/23 09:20 NM [id number]) Shoulder Goniometric Range of Motion Shoulder R shoulder AROM Testing Position Sitting Flexion 175 Abduction 175 External Rotation at 90 degrees 80 Abduction Internal Rotation Behind Back (text) T8 Comments 09/27/23 (IE): 170 deg flex, 172 deg abd, 70 deg ER at 90 deg abd, 60 deg ER at 45 deg abd, 40 deg ER at 0 deg abd, 80 deg IR; pain with 45 deg abd (08/21) 10/31/23: 175 flex and abd, with impingement symptoms at end range, 85 deg at 90 deg abd, IR apley T10 11/11/23: T8 apley IR, 175 deg flex and abd (LH biceps pain), 80 deg ER 11/27/23: 65 deg IR, 85 deg ER, 175 deg flex and abd, T5 ER, T9 IR (no pain) PT-OP-L Special Tests Start: 09/26/23 16:19 Freq: Status: Active Protocol: Document 09/27/23 07:29 NM (Rec: 09/27/23 08:17 NM [id number]) Special Tests Cervical Spine Special Tests Distraction Test Results - Spurling's Test Test Results - Shoulder Special Tests IR/Horizontal ADD Impingement Test Results + Yergason's Biceps Test Results + Comments painful, no loss of strength Speed's Biceps Test Results + Whitt Tho Impingement Test Results + Lift-Off Rotator Cuff Test Results + Comments painful, able to perform with AROM and against minimal resistance ER lag (rotator cuff) Test Results - Empty Can Test Results + Comments Min pain but reports full can worse PT-OP-M Strength Start: 09/26/23 16:19 Freq: Status: Active Protocol: Document 12/27/23 07:33 NM (Rec: 12/27/23 09:20 NM [id number]) Shoulder Strength Shoulder Manual Muscle Testing Right shoulder Flexion 4+ Good+ Extension 5 Normal Abduction (C5) 4+ Good+ External Rotation 4+ Good+ Internal Rotation 4+ Good+ Horizontal Abduction 4+ Good+ Horizontal Adduction 4+ Good+ Comments Moderate pain with resisted ER ; minimal pain with resisted flexion, IR, abduction 09/27/23: flex/ER/HABDHADD 4/5, ext 5/5, abd 4+/5 10/31/23: 4+/5 for all, min pain with resisted ER and flexion initially 11/11/23: 4+/5 for all, pain initiating flexion, no pain with resisted ER 12/27/23: 4+/5, pain free PT-OP-Q Treatments Start: 09/26/23 16:19 Freq: Status: Active Protocol: Document 12/31/23 07:30 NM (Rec: 12/31/23 08:18 NM [id number]) Therapeutic Exercises Prone Exercises plank Prone Exercise Name 1. dolphin plank w/ SA activation (walk up), 2. mod plank w/ serratus slide Side bilateral Equipment Used mat on floor, foam pad under forearms, slider Reps/Minutes 1. 3x8, 2. Comments cued forearms //, push into pad for greater SA activation, min winging IR Prone Exercise Name from 90 deg abd Side right Resistance 2# tball Equipment Used humerus elevated on towel roll Reps/Minutes 3x12 (post tx- IR at T8 but w/ scap winging) Comments pain free; post manual tx; cued elbow at 90 deg; improved IR ROM Sitting Exercises cervical spine stretches Sitting Exercise Name 1. UT, 2. LS, 3. SCM/scalene stretch Side bilateral Equipment Used opposite hand tensioning at neck/clavicle for LS Reps/Minutes 1x60 ea Comments reports stretch, pain free; post manual tx, btwn exercise, feels tight Standing Exercises PNF Standing Exercise Name D2 with IR bias in 1/2 kneel, w/ diagonal rotation added Side right Resistance lvl 5 band (blue) Reps/Minutes 3x10 Comments pain free, challenging Other Exercises self soft tissue mobilization Other Exercise Name cervical paraspinals, UT, LS Side right Equipment Used theracane Reps/Minutes 2' Comments beginning of session Manual Therapy Treatment Soft Tissue Mobilization posterior trunk Body Location lat, subscapularis, proximal biceps Mobilization Type Rolling,Strumming,Sustained Pressure Intensity/Depth Moderate Body Position Supine Comments Tenderness but no trigger point at lat/subscapularis under axilla and LH biceps tendon. Decreased tenderness reported with soft tissue mobilization Joint Mobilizations R Glenohumeral Joint jt at 90 deg abd Direction Post glide, posterior gapping Grade III Comments Less tenderness at ant shoulder today w/ mobilization . Post glide with IR bias to improve mobility with functional movement into IR with abduction at 90 deg d/t increased R ant shoulder tightness. Followed by posterior gapping to decrease anterior translation of humeral head. Self-Care/Home Management Treatment Education Patient Education Pain Management Other Education Educated on continued activity modification of overhead activities to reduce shoulder pain, decrease number of aggravating activities PT-OP-R Modalities Start: 09/26/23 16:19 Freq: Status: Active Protocol: Document 11/04/23 07:33 SP (Rec: 11/04/23 08:18 SP [id number]) Ultrasound Therapy Treatment R bicep Patient Position Supine Coupling Medium Ultrasound Gel Applicator Size (cm2) 2cm Intensity Setting (w/cm2) 8 Comments less pain prox at coricoid process 10 min PT-OP-T Assessment and Plan Start: 09/26/23 16:19 Freq: Status: Active Protocol: Document 12/31/23 07:30 NM (Rec: 12/31/23 08:18 NM [id number]) Physical Therapy Assessment Goals Five Impairment activity Short Term Goal (STG) Pt will report at least 30% return to prior level of activity in order to demonstrate improved QOL, activity tolerance, and pain management 10/31/23: 50% reported back to PLOF 11/11/23: not performing aggravating activities, reports 50% with back to PLOF STG Duration 4 weeks MET Dishroom Attendant Goal (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 10/31/23: 4+/5 with 2/10 pain with ER and initiating flexion 11/11/23: 4+/5 with pain initiating flexion, no pain with resisted ER 12/27/23: 4+/5, pain free all motions LTG Duration 8 weeks MET Three Impairment periscapular strength Impairment grossly 4/5 Usp Goal (LTG) Pt will improve periscapular strength to at least 4+/5 without compensation in order to demonstrate increased scapular control during arm elevation 10/31/23: 4+/5 for elevation, add, depression; 4/5 for abduction 2/10 pain 11/11/23: 4+/5 for all motions except 4/5 abd, 1/10 pain 12/27/23: 4+/5, minimal UT compensation, pain free for most motions, prn pain with abduction LTG Duration 8 weeks PARTIALLY MET, PROGRESSING Two Impairment AROM Impairment Apley IR scratch test: T12 Short Term Goal (STG) Pt will improve R Apley IR scratch test AROM to at least T10 in order to demonstrate improved AROM for ADLs. 10/31/23: T10, not painful but cramping STG Duration 4 weeks MET Usp Goal (LTG) Pt will improve R Apley IR scratch test AROM to at least T8 in order to demonstrate improved AROM for ADLs, comparable to L Apley. 11/11/23: T8, IR apley, stretch but not painful LTG Duration 8 weeks MET One Impairment quickdash Impairment quickdash 18% Dishroom Attendant Goal (LTG) Pt will decrease quickdash score by at least 9% in order to demonstrate improved function and QOL 10/31/23: 15.9% 11/11/23: score 16 or 11.3% 12/27/23: 15 or 9% LTG Duration 8 weeks MET Assessment Summary Assessment Pt tolerated session well with good effort during therapeutic exercise. Continues to have scapular winging with IR/ADD along with anterior shoulder tightness and cervical spine muscle tightness. Pt still performing several overhead activities at home consistently, which leads to frequent symptom aggravation. Pt consistently educated on modifying activity as able during sessions. Continued with R shoulder IR strengthening and increased serratus activation. Pt demos less scapular winging compared to at evaluation with arm elevation and IR. Progressed to serratus slide modified plank for higher level serratus activation. Pt demos improved IR ROM during prone IR, pain free when cued into 90 deg abduction. PT and pt discussed plan of care as pt needs to schedule out more visits; at this time, pt planning to discharge at last scheduled visit in December. PT in agreement and recommends pt return back to ortho specialist if symptoms flare up again, pt verbalizes agreement. Pt would benefit from skilled PT for R shoulder strengthening and pain management in order to improve activity tolerance. Physical Therapy Plan Frequency and Duration Frequency of Treatment 2x/Week Duration of treatment (weeks) 10 Plan of Care Start Date 11/11/23 Plan of Care End Date 01/24/24 Therapeutic Interventions Therapeutic Interventions Aquatic Therapy,Coordination Training,Home Exercise Program ,Joint Mobilizations,Manual Therapy,Neuromuscular Re- education,Orthotic/Prosthetic Management,Patient/Caregiver Education,Self-Care/Home Management,Sensory Integration ,Soft Tissue Mobilization, Taping,Therapeutic Activities, Therapeutic Exercises Modalities Cold Pack/Ice Massage,Electric Stimulation,Hot Packs, Iontophoresis,Traction- Mechanical,Ultrasound, Vasopneumatic Devices Other Referrals/Consults Referrals/Consults Recommended Recommend MRI and referral to ortho depending on pt progression with conservative treatment Next Visit Focus/Plan Next Note Type Treatment Note Next Visit Plan Next session: serratus plank slide, IR bias with resistance (eccentric IR) Dolphin plank, serratus press, resisted IR. Continue with posterior capsule mobility and stretching Trial pallof with increased resistance, address scapular winging *be aware of bicep irritation Plan to d/c at last scheduled session
--- NOTE | 2024-01-02 08:11 | PT.OTN ---
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 He currently had dx of impingement, likely from overuse. Recently received cortisone injection 3 weeks ago and is on anti- inflammatories, which helps. 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 Reports pain is most noticeable when lifting, driving. Has hx of R rotator cuff repair 20 years ago; states this feels the same. No MRI, but did an x-ray without conclusive results. Trying conservative treatment. Pt lifts weights every day but has decreased (previously power lifting, body weight lifting). 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 Worse with throwing, overhead pushing (pull ups are ok). 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 Arrives with R sciatic flare up with decreased stance time, history of. PT-OP-E Functional Tests Start: 09/26/23 16:19 Freq: Status: Active Protocol: Document 09/27/23 07:29 NM (Rec: 09/27/23 08:17 NM [id number]) Functional Tests Apley's Scratch Test Action 1- Left post cuff Action 1- Right post cuff, min discomfort Action 2- Left T5 Action 2- Right T4, min discomfort (10) Action 3- Left T7 Action 3- Right T12 (most provocative, 10/19) PT-OP-F Manual Assessment Start: 09/26/23 16:19 Freq: Status: Active Protocol: Document 09/27/23 07:29 NM (Rec: 09/27/23 18:19 NM [id number]) Manual Assessments Soft Tissue Assessment Soft Tissue Mobility Assessment Increased tone of R upper trapezius, levator scapula, R cervical spine paraspinals. Restrictions of posterior cuff muscles, pectorals Joint Mobility Assessment Joint Mobility Assessment Anterior position R humeral head. Full bilateral shoulder AROM into flexion and abduction, IR. Limited shoulder ER AROM, flora with increased abduction. B scapulae 2 from spine. Delayed R scapulohumeral rhythm with arm elevation. Decreased R AC joint space, elevated R 1st rib PT-OP-H Neuro Start: 09/26/23 16:19 Freq: Status: Active Protocol: Document 09/27/23 07:29 NM (Rec: 09/27/23 18:19 NM [id number]) Sensation Evaluation Gross Sensation Gross Sensation WNL Comments Summary Comments BUE equally intact to light touch sensation PT-OP-J Posture/Palpation/Skin Start: 09/26/23 16:19 Freq: Status: Active Protocol: Document 09/27/23 07:29 NM (Rec: 09/27/23 18:19 NM [id number]) Posture Evaluation Position Standing Evaluation View posterior, lateral Head/C-Spine Posture Forward Head T-Spine Posture Neutral L-Spine Posture Decreased Lordosis Shoulder Posture (L) Rounded,(R) Rounded Scapula Posture (L) Protracted,(R) Protracted, (R) Elevated Arm Posture (L) Internally Rotated,(R) Internally Rotated Pelvis Posture Neutral Weight Distribution Balanced Hip Posture (L) Neutral,(R) Neutral Knee Posture (L) Genu Valgus,(R) Genu Valgus Patellar Posture (L) Superior,(R) Superior Ankle/Foot Posture (L) Neutral,(R) Neutral Palpation Assessment Location cervical spine Palpation Location paraspinals, upper trap, levator scapula Palpation Findings Soft Tissue Tightness,Spasm Palpation Details Spasm R upper trapezius, levator scapula, paraspinals R shoulder Palpation Location long head biceps, rotator cuff insertion, posterior cuff, pectoral Palpation Findings Soft Tissue Tightness, Tenderness Palpation Details Tenderness along long head biceps, rotator cuff insertion . Soft tissue tightness of rotator cuff muscles, pectorals PT-OP-K Range of Motion Start: 09/26/23 16:19 Freq: Status: Active Protocol: Document 12/27/23 07:33 NM (Rec: 12/27/23 09:20 NM [id number]) Shoulder Goniometric Range of Motion Shoulder R shoulder AROM Testing Position Sitting Flexion 175 Abduction 175 External Rotation at 90 degrees 80 Abduction Internal Rotation Behind Back (text) T8 Comments 09/27/23 (IE): 170 deg flex, 172 deg abd, 70 deg ER at 90 deg abd, 60 deg ER at 45 deg abd, 40 deg ER at 0 deg abd, 80 deg IR; pain with 45 deg abd (08/21) 10/31/23: 175 flex and abd, with impingement symptoms at end range, 85 deg at 90 deg abd, IR apley T10 11/11/23: T8 apley IR, 175 deg flex and abd (LH biceps pain), 80 deg ER 11/27/23: 65 deg IR, 85 deg ER, 175 deg flex and abd, T5 ER, T9 IR (no pain) PT-OP-L Special Tests Start: 09/26/23 16:19 Freq: Status: Active Protocol: Document 09/27/23 07:29 NM (Rec: 09/27/23 08:17 NM [id number]) Special Tests Cervical Spine Special Tests Distraction Test Results - Spurling's Test Test Results - Shoulder Special Tests IR/Horizontal ADD Impingement Test Results + Mercedes's Biceps Test Results + Comments painful, no loss of strength Speed's Biceps Test Results + Whitt Tho Impingement Test Results + Lift-Off Rotator Cuff Test Results + Comments painful, able to perform with AROM and against minimal resistance ER lag (rotator cuff) Test Results - Empty Can Test Results + Comments Min pain but reports full can worse PT-OP-M Strength Start: 09/26/23 16:19 Freq: Status: Active Protocol: Document 12/27/23 07:33 NM (Rec: 12/27/23 09:20 NM [id number]) Shoulder Strength Shoulder Manual Muscle Testing Right shoulder Flexion 4+ Good+ Extension 5 Normal Abduction (C5) 4+ Good+ External Rotation 4+ Good+ Internal Rotation 4+ Good+ Horizontal Abduction 4+ Good+ Horizontal Adduction 4+ Good+ Comments Moderate pain with resisted ER ; minimal pain with resisted flexion, IR, abduction 09/27/23: flex/ER/HABDHADD 4/5, ext 5/5, abd 4+/5 10/31/23: 4+/5 for all, min pain with resisted ER and flexion initially 11/11/23: 4+/5 for all, pain initiating flexion, no pain with resisted ER 12/27/23: 4+/5, pain free PT-OP-Q Treatments Start: 09/26/23 16:19 Freq: Status: Active Protocol: Document 01/02/24 07:31 SP (Rec: 01/02/24 08:40 SP [id number]) Therapeutic Exercises Supine Exercises abd/ER Supine Exercise Name 1. ABD /c ER 2. abd/ER into OH mid range Side right Resistance 5>7# DB Reps/Minutes 10 reps each Comments no pain, tiring, tactile cues for posterior prox humerus/ elev distal humeru Prone Exercises plank Prone Exercise Name 1. dolphin plank w/ SA activation (walk up), 2. mod plank w/ serratus slide Side bilateral Equipment Used mat on floor, foam pad under forearms, slider Reps/Minutes 1. 3x8 (feet walk up) 2. 2x8 ( elbow walk back) Comments cued forearms //, push into pad for greater SA activation, no winging IR Prone Exercise Name from 90 deg abd Side right Resistance 2>3.3# tball Equipment Used humerus elevated on towel roll Reps/Minutes 2x20 Comments pain free; post manual tx; cued elbow at 90 deg; improved IR ROM Sitting Exercises D2 flexion /c ER Side right Resistance TB #4 dark blue (sitting on band bench) Reps/Minutes 10 reps Comments challenging but good form, pnfree Standing Exercises stretching Standing Exercise Name FF /c humeral IR and ER- end tx Side bilateral Equipment Used hand/forearm on stair rail /c trunk flexion Reps/Minutes 20 SH each position Comments good anterior shld stretch /c ER PNF Standing Exercise Name D2 with IR bias in 1/2 kneel, w/ diagonal rotation added Side right Resistance lvl 5 band (blue) Reps/Minutes 3x10 Comments pain free, challenging IR liftoff Standing Exercise Name 1. IR R hold 2. lift away from trunk Side right Resistance AROM Reps/Minutes 15 SH, 10 lift offs, 15 SH Comments tension ant shld but not pain- reports gaining ROM- cued Neurtral CS Manual Therapy Treatment Soft Tissue Mobilization posterior trunk Body Location lat, subscapularis, prox biceps, mid/distal coracobrach Mobilization Type Rolling,Sustained Pressure, Other Intensity/Depth Moderate Body Position Supine Comments Tenderness but no trigger point at lat/subscapularis under axilla, LH biceps tendon and coracobrac. PROM humeral IR/ER/punching motion (towel under mid humerus). Decreased tenderness reported with soft tissue mobilization Joint Mobilizations R Glenohumeral Joint jt at 90 deg abd Direction Post glide, posterior gapping Grade III Comments Less tenderness at ant shoulder today w/ mobilization , posterior gapping to decrease anterior translation of humeral head. R AC joint Direction post on scapular spine caudal Grade II Body Position Hooklying Reps/Duration x5 reps Comments MWM FF use strap, decreased top shld discomfort PT-OP-R Modalities Start: 09/26/23 16:19 Freq: Status: Active Protocol: Document 11/04/23 07:33 SP (Rec: 11/04/23 08:18 SP [id number]) Ultrasound Therapy Treatment R bicep Patient Position Supine Coupling Medium Ultrasound Gel Applicator Size (cm2) 2cm Intensity Setting (w/cm2) 8 Comments less pain prox at coricoid process 10 min PT-OP-T Assessment and Plan Start: 09/26/23 16:19 Freq: Status: Active Protocol: Document 01/02/24 07:31 SP (Rec: 01/02/24 08:40 SP [id number]) Physical Therapy Assessment Goals Five Impairment activity Short Term Goal (STG) Pt will report at least 30% return to prior level of activity in order to demonstrate improved QOL, activity tolerance, and pain management 10/31/23: 50% reported back to PLOF 11/11/23: not performing aggravating activities, reports 50% with back to PLOF STG Duration 4 weeks MET 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 10/31/23: 4+/5 with 2/10 pain with ER and initiating flexion 11/11/23: 4+/5 with pain initiating flexion, no pain with resisted ER 12/27/23: 4+/5, pain free all motions LTG Duration 8 weeks MET Three Impairment periscapular strength Impairment grossly 4/5 Senior Care Goal (LTG) Pt will improve periscapular strength to at least 4+/5 without compensation in order to demonstrate increased scapular control during arm elevation 10/31/23: 4+/5 for elevation, add, depression; 4/5 for abduction 2/10 pain 11/11/23: 4+/5 for all motions except 4/5 abd, 1/10 pain 12/27/23: 4+/5, minimal UT compensation, pain free for most motions, prn pain with abduction LTG Duration 8 weeks PARTIALLY MET, PROGRESSING Two Impairment AROM Impairment Apley IR scratch test: T12 Short Term Goal (STG) Pt will improve R Apley IR scratch test AROM to at least T10 in order to demonstrate improved AROM for ADLs. 10/31/23: T10, not painful but cramping STG Duration 4 weeks MET Senior Care Goal (LTG) Pt will improve R Apley IR scratch test AROM to at least T8 in order to demonstrate improved AROM for ADLs, comparable to L Apley. 11/11/23: T8, IR apley, stretch but not painful LTG Duration 8 weeks MET One Impairment quickdash Impairment quickdash 18% Senior Care Goal (LTG) Pt will decrease quickdash score by at least 9% in order to demonstrate improved function and QOL 10/31/23: 15.9% 11/11/23: score 16 or 11.3% 12/27/23: 15 or 9% LTG Duration 8 weeks MET Assessment Summary Assessment Pt tolerated session well. Improved IR strength with ability to increase resistance prone IR 3.3lbs with no winging, AROM R more than L T6 improved from T8 on 12/26. Pt no pain but effort work with plank and D2 flexion IR and ER against resistance band today . Physical Therapy Plan Frequency and Duration Frequency of Treatment 2x/Week Duration of treatment (weeks) 10 Plan of Care Start Date 11/11/23 Plan of Care End Date 01/24/24 Therapeutic Interventions Therapeutic Interventions Aquatic Therapy,Coordination Training,Home Exercise Program ,Joint Mobilizations,Manual Therapy,Neuromuscular Re- education,Orthotic/Prosthetic Management,Patient/Caregiver Education,Self-Care/Home Management,Sensory Integration ,Soft Tissue Mobilization, Taping,Therapeutic Activities, Therapeutic Exercises Modalities Cold Pack/Ice Massage,Electric Stimulation,Hot Packs, Iontophoresis,Traction- Mechanical,Ultrasound, Vasopneumatic Devices Other Referrals/Consults Referrals/Consults Recommended Recommend MRI and referral to ortho depending on pt progression with conservative treatment Next Visit Focus/Plan Next Note Type Treatment Note Next Visit Plan Next session: serratus plank slide, IR bias with resistance (eccentric IR) Dolphin plank, serratus press, resisted IR. Continue with posterior capsule mobility and stretching Trial pallof with increased resistance, address scapular winging *be aware of bicep irritation Plan to d/c at last scheduled session
--- NOTE | 2024-01-08 08:13 | PT.OTN ---
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 He currently had dx of impingement, likely from overuse. Recently received cortisone injection 3 weeks ago and is on anti- inflammatories, which helps. 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 Reports pain is most noticeable when lifting, driving. Has hx of R rotator cuff repair 20 years ago; states this feels the same. No MRI, but did an x-ray without conclusive results. Trying conservative treatment. Pt lifts weights every day but has decreased (previously power lifting, body weight lifting). 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 Worse with throwing, overhead pushing (pull ups are ok). 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 PT-OP-E Functional Tests Start: 09/26/23 16:19 Freq: Status: Active Protocol: Document 09/27/23 07:29 NM (Rec: 09/27/23 08:17 NM [id number]) Functional Tests Apley's Scratch Test Action 1- Left post cuff Action 1- Right post cuff, min discomfort Action 2- Left T5 Action 2- Right T4, min discomfort (10) Action 3- Left T7 Action 3- Right T12 (most provocative, /10) PT-OP-F Manual Assessment Start: 09/26/23 16:19 Freq: Status: Active Protocol: Document 09/27/23 07:29 NM (Rec: 09/27/23 18:19 NM [id number]) Manual Assessments Soft Tissue Assessment Soft Tissue Mobility Assessment Increased tone of R upper trapezius, levator scapula, R cervical spine paraspinals. Restrictions of posterior cuff muscles, pectorals Joint Mobility Assessment Joint Mobility Assessment Anterior position R humeral head. Full bilateral shoulder AROM into flexion and abduction, IR. Limited shoulder ER AROM, flora with increased abduction. B scapulae 2 from spine. Delayed R scapulohumeral rhythm with arm elevation. Decreased R AC joint space, elevated R 1st rib PT-OP-H Neuro Start: 09/26/23 16:19 Freq: Status: Active Protocol: Document 09/27/23 07:29 NM (Rec: 09/27/23 18:19 NM [id number]) Sensation Evaluation Gross Sensation Gross Sensation WNL Comments Summary Comments BUE equally intact to light touch sensation PT-OP-J Posture/Palpation/Skin Start: 09/26/23 16:19 Freq: Status: Active Protocol: Document 09/27/23 07:29 NM (Rec: 09/27/23 18:19 NM [id number]) Posture Evaluation Position Standing Evaluation View posterior, lateral Head/C-Spine Posture Forward Head T-Spine Posture Neutral L-Spine Posture Decreased Lordosis Shoulder Posture (L) Rounded,(R) Rounded Scapula Posture (L) Protracted,(R) Protracted, (R) Elevated Arm Posture (L) Internally Rotated,(R) Internally Rotated Pelvis Posture Neutral Weight Distribution Balanced Hip Posture (L) Neutral,(R) Neutral Knee Posture (L) Genu Valgus,(R) Genu Valgus Patellar Posture (L) Superior,(R) Superior Ankle/Foot Posture (L) Neutral,(R) Neutral Palpation Assessment Location cervical spine Palpation Location paraspinals, upper trap, levator scapula Palpation Findings Soft Tissue Tightness,Spasm Palpation Details Spasm R upper trapezius, levator scapula, paraspinals R shoulder Palpation Location long head biceps, rotator cuff insertion, posterior cuff, pectoral Palpation Findings Soft Tissue Tightness, Tenderness Palpation Details Tenderness along long head biceps, rotator cuff insertion . Soft tissue tightness of rotator cuff muscles, pectorals PT-OP-K Range of Motion Start: 09/26/23 16:19 Freq: Status: Active Protocol: Document 12/27/23 07:33 NM (Rec: 12/27/23 09:20 NM [id number]) Shoulder Goniometric Range of Motion Shoulder R shoulder AROM Testing Position Sitting Flexion 175 Abduction 175 External Rotation at 90 degrees 80 Abduction Internal Rotation Behind Back (text) T8 Comments 09/27/23 (IE): 170 deg flex, 172 deg abd, 70 deg ER at 90 deg abd, 60 deg ER at 45 deg abd, 40 deg ER at 0 deg abd, 80 deg IR; pain with 45 deg abd (08/21) 10/31/23: 175 flex and abd, with impingement symptoms at end range, 85 deg at 90 deg abd, IR apley T10 11/11/23: T8 apley IR, 175 deg flex and abd (LH biceps pain), 80 deg ER 11/27/23: 65 deg IR, 85 deg ER, 175 deg flex and abd, T5 ER, T9 IR (no pain) PT-OP-L Special Tests Start: 09/26/23 16:19 Freq: Status: Active Protocol: Document 09/27/23 07:29 NM (Rec: 09/27/23 08:17 NM [id number]) Special Tests Cervical Spine Special Tests Distraction Test Results - Spurling's Test Test Results - Shoulder Special Tests IR/Horizontal ADD Impingement Test Results + Mercedes's Biceps Test Results + Comments painful, no loss of strength Speed's Biceps Test Results + Whitt Tho Impingement Test Results + Lift-Off Rotator Cuff Test Results + Comments painful, able to perform with AROM and against minimal resistance ER lag (rotator cuff) Test Results - Empty Can Test Results + Comments Min pain but reports full can worse PT-OP-M Strength Start: 09/26/23 16:19 Freq: Status: Active Protocol: Document 12/27/23 07:33 NM (Rec: 12/27/23 09:20 NM [id number]) Shoulder Strength Shoulder Manual Muscle Testing Right shoulder Flexion 4+ Good+ Extension 5 Normal Abduction (C5) 4+ Good+ External Rotation 4+ Good+ Internal Rotation 4+ Good+ Horizontal Abduction 4+ Good+ Horizontal Adduction 4+ Good+ Comments Moderate pain with resisted ER ; minimal pain with resisted flexion, IR, abduction 09/27/23: flex/ER/HABDHADD 4/5, ext 5/5, abd 4+/5 10/31/23: 4+/5 for all, min pain with resisted ER and flexion initially 11/11/23: 4+/5 for all, pain initiating flexion, no pain with resisted ER 12/27/23: 4+/5, pain free PT-OP-Q Treatments Start: 09/26/23 16:19 Freq: Status: Active Protocol: Document 01/08/24 07:30 SP (Rec: 01/08/24 08:41 SP [id number]) Therapeutic Exercises Supine Exercises abd/ER Supine Exercise Name 1. ABD eccER<> con IR 2. push plus<> ecc abd/er 90/90 Side right Resistance 1. 7# DB>TB #5 dark green 2. # 5 >green+blue Equipment Used band anchored under therapist foot Reps/Minutes 1. 15 reps x2 2. x10 Comments no pain, tiring, tactile cues for maintain 90 deg ABD Rhythmic stab Supine Exercise Name serratus plus mid range Resistance 10# DB Therapist hit multi direction Reps/Minutes 30 x2 Comments pnfree Prone Exercises ball walk outs Prone Exercise Name 1. step walk over/back lateral / 2. Tball under hand through Resistance 2- 2.2-5.5 lbs Equipment Used over 65cm tball at shins Comments cued SerrPress level scap and core fac walk out slow Sitting Exercises D2 flexion /c ER Side right Resistance TB #4 dark blue (sitting on band bench) Reps/Minutes 10 reps Comments challenging but good form, pnfree Standing Exercises PNF Standing Exercise Name D2 with IR bias in standing, w / diagonal rotation added Side right Resistance lvl 4 band (dark blue) Reps/Minutes 3x10 Comments pain free, challenging IR liftoff Standing Exercise Name 1. IR R hold 2. lift away from trunk Side right Resistance AROM Reps/Minutes 15 SH, 10 lift offs Comments tension ant shld but not pain- reports gaining ROM- cued Neurtral CS body blade Standing Exercise Name FF 90* fwd punch & abd/add Equipment Used large body blade Reps/Minutes x30 each Comments pain free Manual Therapy Treatment Soft Tissue Mobilization posterior trunk Body Location lat, subscapularis, prox biceps, mid/distal coracobrach , distal tricep Mobilization Type Rolling,Sustained Pressure, Other Intensity/Depth Moderate Body Position Supine Comments Tenderness but no trigger point at lat/subscapularis under axilla, LH biceps tendon and coracobrac. PROM humeral IR/ER/punching motion. Decreased tenderness reported with soft tissue mobilization Self-Care/Home Management Treatment Education Patient Education Pain Management Other Education Discussed use of MHP and lumbar ROM bg/pnfree range with core fac to support LB. Pt good response MHP to LS with shld ex. PT-OP-R Modalities Start: 09/26/23 16:19 Freq: Status: Active Protocol: Document 11/04/23 07:33 SP (Rec: 11/04/23 08:18 SP [id number]) Ultrasound Therapy Treatment R bicep Patient Position Supine Coupling Medium Ultrasound Gel Applicator Size (cm2) 2cm Intensity Setting (w/cm2) 8 Comments less pain prox at coricoid process 10 min PT-OP-T Assessment and Plan Start: 09/26/23 16:19 Freq: Status: Active Protocol: Document 01/08/24 07:30 SP (Rec: 01/08/24 08:41 SP [id number]) Physical Therapy Assessment Goals Five Impairment activity Short Term Goal (STG) Pt will report at least 30% return to prior level of activity in order to demonstrate improved QOL, activity tolerance, and pain management 10/31/23: 50% reported back to PLOF 11/11/23: not performing aggravating activities, reports 50% with back to PLOF STG Duration 4 weeks MET Dragger Goal (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 10/31/23: 4+/5 with 2/10 pain with ER and initiating flexion 11/11/23: 4+/5 with pain initiating flexion, no pain with resisted ER 12/27/23: 4+/5, pain free all motions LTG Duration 8 weeks MET Three Impairment periscapular strength Impairment grossly 4/5 Penitentiary Goal (LTG) Pt will improve periscapular strength to at least 4+/5 without compensation in order to demonstrate increased scapular control during arm elevation 10/31/23: 4+/5 for elevation, add, depression; 4/5 for abduction 2/10 pain 11/11/23: 4+/5 for all motions except 4/5 abd, 1/10 pain 12/27/23: 4+/5, minimal UT compensation, pain free for most motions, prn pain with abduction LTG Duration 8 weeks PARTIALLY MET, PROGRESSING Two Impairment AROM Impairment Apley IR scratch test: T12 Short Term Goal (STG) Pt will improve R Apley IR scratch test AROM to at least T10 in order to demonstrate improved AROM for ADLs. 10/31/23: T10, not painful but cramping STG Duration 4 weeks MET Dragger Goal (LTG) Pt will improve R Apley IR scratch test AROM to at least T8 in order to demonstrate improved AROM for ADLs, comparable to L Apley. 11/11/23: T8, IR apley, stretch but not painful LTG Duration 8 weeks MET One Impairment quickdash Impairment quickdash 18% Dragger Goal (LTG) Pt will decrease quickdash score by at least 9% in order to demonstrate improved function and QOL 10/31/23: 15.9% 11/11/23: score 16 or 11.3% 12/27/23: 15 or 9% LTG Duration 8 weeks MET Assessment Summary Assessment Pt tolerated tx well. Pt improved serratus activiation tiring rhythmic stab and during uneven plank over tball dynamic ball toss no pain, improved core fac reported and back felt better more supported by end tx, only couple reps intitially R shld winging improved /c reps. Physical Therapy Plan Frequency and Duration Frequency of Treatment 2x/Week Duration of treatment (weeks) 10 Plan of Care Start Date 11/11/23 Plan of Care End Date 01/24/24 Therapeutic Interventions Therapeutic Interventions Aquatic Therapy,Coordination Training,Home Exercise Program ,Joint Mobilizations,Manual Therapy,Neuromuscular Re- education,Orthotic/Prosthetic Management,Patient/Caregiver Education,Self-Care/Home Management,Sensory Integration ,Soft Tissue Mobilization, Taping,Therapeutic Activities, Therapeutic Exercises Modalities Cold Pack/Ice Massage,Electric Stimulation,Hot Packs, Iontophoresis,Traction- Mechanical,Ultrasound, Vasopneumatic Devices Other Referrals/Consults Referrals/Consults Recommended Recommend MRI and referral to ortho depending on pt progression with conservative treatment Next Visit Focus/Plan Next Note Type Treatment Note Next Visit Plan Next session: serratus plank slide, IR bias with resistance (eccentric IR) Dolphin plank, serratus press, resisted IR. Continue with posterior capsule mobility and stretching Trial pallof with increased resistance, address scapular winging *be aware of bicep irritation Plan to d/c at last scheduled session
--- NOTE | 2024-01-10 08:36 | PT.OTN ---
Current Diagnoses Pain in right shoulder (01/10/24) Other specified joint disorders, right shoulder (01/10/24) Physical Therapy Treatment Note PT-OP-A Visit Information Start: 09/26/23 16:19 Freq: Status: Active Protocol: Document 01/10/24 07:31 NM (Rec: 01/10/24 08:35 NM [id number]) Out-Patient Physical Therapy Visit Information Visit Information Visit Type Discharge Summary Visit Start Time 07:32 Visit Stop Time 08:15 Visit Number 23 Evaluation Information Evaluation Date 09/27/23 PT-OP-B Current Condition Start: 09/26/23 16:19 Freq: Status: Active Protocol: Document 09/27/23 07:29 NM (Rec: 09/27/23 08:17 NM [id number]) Current Condition History of Current Condition Onset Date 3-4 months ago Current Complaints pain with throwing, resting pain History of Current Condition Pt presents with R shoulder pain beginning without known NOE several months ago. He currently had dx of impingement, likely from overuse. Recently received cortisone injection 3 weeks ago and is on anti- inflammatories, which helps. 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 Reports pain is most noticeable when lifting, driving. Has hx of R rotator cuff repair 20 years ago; states this feels the same. No MRI, but did an x-ray without conclusive results. Trying conservative treatment. Pt lifts weights every day but has decreased (previously power lifting, body weight lifting). 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 Worse with throwing, overhead pushing (pull ups are ok). 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 His shoulder is doing better, but states he still needs to slow down, which will happen in a few weeks. Pt wanting to discharge from PT today vs schedule out more appt during POC. Reports doing well and can manage at home with HEPs PT-OP-E Functional Tests Start: 09/26/23 16:19 Freq: Status: Active Protocol: Document 09/27/23 07:29 NM (Rec: 09/27/23 08:17 NM [id number]) Functional Tests Apley's Scratch Test Action 1- Left post cuff Action 1- Right post cuff, min discomfort Action 2- Left T5 Action 2- Right T4, min discomfort (1/10) Action 3- Left T7 Action 3- Right T12 (most provocative, 3/10) PT-OP-F Manual Assessment Start: 09/26/23 16:19 Freq: Status: Active Protocol: Document 09/27/23 07:29 NM (Rec: 09/27/23 18:19 NM [id number]) Manual Assessments Soft Tissue Assessment Soft Tissue Mobility Assessment Increased tone of R upper trapezius, levator scapula, R cervical spine paraspinals. Restrictions of posterior cuff muscles, pectorals Joint Mobility Assessment Joint Mobility Assessment Anterior position R humeral head. Full bilateral shoulder AROM into flexion and abduction, IR. Limited shoulder ER AROM, flora with increased abduction. B scapulae 2 from spine. Delayed R scapulohumeral rhythm with arm elevation. Decreased R AC joint space, elevated R 1st rib PT-OP-H Neuro Start: 09/26/23 16:19 Freq: Status: Active Protocol: Document 09/27/23 07:29 NM (Rec: 09/27/23 18:19 NM [id number]) Sensation Evaluation Gross Sensation Gross Sensation WNL Comments Summary Comments BUE equally intact to light touch sensation PT-OP-J Posture/Palpation/Skin Start: 09/26/23 16:19 Freq: Status: Active Protocol: Document 09/27/23 07:29 NM (Rec: 09/27/23 18:19 NM [id number]) Posture Evaluation Position Standing Evaluation View posterior, lateral Head/C-Spine Posture Forward Head T-Spine Posture Neutral L-Spine Posture Decreased Lordosis Shoulder Posture (L) Rounded,(R) Rounded Scapula Posture (L) Protracted,(R) Protracted, (R) Elevated Arm Posture (L) Internally Rotated,(R) Internally Rotated Pelvis Posture Neutral Weight Distribution Balanced Hip Posture (L) Neutral,(R) Neutral Knee Posture (L) Genu Valgus,(R) Genu Valgus Patellar Posture (L) Superior,(R) Superior Ankle/Foot Posture (L) Neutral,(R) Neutral Palpation Assessment Location cervical spine Palpation Location paraspinals, upper trap, levator scapula Palpation Findings Soft Tissue Tightness,Spasm Palpation Details Spasm R upper trapezius, levator scapula, paraspinals R shoulder Palpation Location long head biceps, rotator cuff insertion, posterior cuff, pectoral Palpation Findings Soft Tissue Tightness, Tenderness Palpation Details Tenderness along long head biceps, rotator cuff insertion . Soft tissue tightness of rotator cuff muscles, pectorals PT-OP-K Range of Motion Start: 09/26/23 16:19 Freq: Status: Active Protocol: Document 01/10/24 07:31 NM (Rec: 01/10/24 08:35 NM [id number]) Shoulder Goniometric Range of Motion Shoulder R shoulder AROM Testing Position Sitting Flexion 175 Abduction 175 External Rotation at 90 degrees 80 Abduction Internal Rotation Behind Back (text) T8 Comments 09/27/23 (IE): 170 deg flex, 172 deg abd, 70 deg ER at 90 deg abd, 60 deg ER at 45 deg abd, 40 deg ER at 0 deg abd, 80 deg IR; pain with 45 deg abd (08/21) 10/31/23: 175 flex and abd, with impingement symptoms at end range, 85 deg at 90 deg abd, IR apley T10 11/11/23: T8 apley IR, 175 deg flex and abd (LH biceps pain), 80 deg ER 11/27/23: 65 deg IR, 85 deg ER, 175 deg flex and abd, T5 ER, T9 IR (no pain) 01/10/24: 175 deg flex and abd, 85 deg ER at 90 deg abd, T9 for IR PT-OP-L Special Tests Start: 09/26/23 16:19 Freq: Status: Active Protocol: Document 09/27/23 07:29 NM (Rec: 09/27/23 08:17 NM [id number]) Special Tests Cervical Spine Special Tests Distraction Test Results - Spurling's Test Test Results - Shoulder Special Tests IR/Horizontal ADD Impingement Test Results + Mercedes's Biceps Test Results + Comments painful, no loss of strength Speed's Biceps Test Results + Whitt Tho Impingement Test Results + Lift-Off Rotator Cuff Test Results + Comments painful, able to perform with AROM and against minimal resistance ER lag (rotator cuff) Test Results - Empty Can Test Results + Comments Min pain but reports full can worse PT-OP-M Strength Start: 09/26/23 16:19 Freq: Status: Active Protocol: Document 01/10/24 07:31 NM (Rec: 01/10/24 08:35 NM [id number]) Scapula Strength Scapula Manual Muscle Testing Right Elevation (C4) 5 Normal Adduction 5 Normal Abduction 5 Normal Depression 5 Normal Comments IE: 4/5 for all, Minimal pain with resisted testing; no limits ROM 10/31/23: 4+/5 for elevation, add, depression; 4/5 for abduction 09/21 pain 11/11/23: 4+/5 for all motions except 4/5 abd, 08/21 pain 01/10/24: 5/5 for all, pain free, good scapular control Shoulder Strength Shoulder Manual Muscle Testing Right shoulder Flexion 4+ Good+ Extension 5 Normal Abduction (C5) 4+ Good+ External Rotation 4+ Good+ Internal Rotation 4+ Good+ Horizontal Abduction 4+ Good+ Horizontal Adduction 4+ Good+ Comments Moderate pain with resisted ER ; minimal pain with resisted flexion, IR, abduction 09/27/23: flex/ER/HABDHADD 4/5, ext 5/5, abd 4+/5 10/31/23: 4+/5 for all, min pain with resisted ER and flexion initially 11/11/23: 4+/5 for all, pain initiating flexion, no pain with resisted ER 12/27/23: 4+/5, pain free 01/10/24: 4+/5 for all, pain free PT-OP-Q Treatments Start: 09/26/23 16:19 Freq: Status: Active Protocol: Document 01/10/24 07:31 NM (Rec: 01/10/24 08:35 NM [id number]) Therapeutic Exercises Supine Exercises thoracic extension Supine Exercise Name with snow angels Side bilateral Equipment Used foam roller on mat Reps/Minutes 1x15 Comments end of tx Prone Exercises plank Prone Exercise Name plank on elbows plus (scapular protraction) Side bilateral Equipment Used foam pad Reps/Minutes 10x3 hold Comments cued push into the pad; good scapular control thoracic extension Prone Exercise Name on libyan ball in quadruped Side bilateral Resistance AROM Equipment Used large green swissball Reps/Minutes 10x3 Comments w/ shldr flexion & serratus push; post manual tx Prone T, W Prone Exercise Name prone TWY Side bilateral Resistance 5# db ea Equipment Used large green libyan ball Reps/Minutes 1x15 Comments pain free Sidelying Exercises sidelying HABD Side right Resistance 5# db Equipment Used mat on floor Reps/Minutes 2x10 Comments pain free sidelying shoulder external rotation Side right Resistance 5# db Equipment Used mat on floor Reps/Minutes 2x10 Comments pain free sidelying flexion Side right Resistance 5# db Equipment Used mat on floor Reps/Minutes 2x10 Comments pain free Sitting Exercises rotator cuff 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) Side bilateral Resistance lvl 2 band around hands Reps/Minutes 2x10 ea direction Comments pain free; good scapular control inferior glide mobilization Sitting Exercise Name self mobilization Side right Equipment Used L assist R, arm in 90 deg abd on table, slight add w/ mob Reps/Minutes 1x10 Comments pain free; cued for correct execution Other Exercises serratus slide Other Exercise Name serratus roll up Side bilateral Resistance lvl 3 band around forearms Equipment Used foam roller Reps/Minutes 2x10 Comments pain free; cued // forearms; good form w/ reps Manual Therapy Treatment Soft Tissue Mobilization posterior trunk Body Location subscapularis, post cuff, lat, prox biceps Mobilization Type Rolling,Sustained Pressure, Other Intensity/Depth Moderate Body Position Supine Comments Tenderness at lat/ subscapularis in axilla, LH biceps tendon. MWM for subscapularis/lat mobilization using ADD/IR w/ ABD/ER. Pt reports decreased tenderness post mobilization chest Body Location pec major and minor Mobilization Type Rolling,Sustained Pressure Intensity/Depth Moderate Body Position Supine Comments With functional movement, less tightness with mobilization cervical spine Body Location UT, LS, scalene, SCM Mobilization Type Rolling,Sustained Pressure, Trigger Point Release Intensity/Depth Moderate Body Position Sitting Comments Trigger point of LS. Increased tightness of R scalenes and SCM. Reduced tightness and tenderness, relaxation with mobilization Joint Mobilizations R Glenohumeral Joint jt at 60-90 deg abd Direction Post glide, posterior gapping, inf glide Grade III Reps/Duration 4x30 ea Comments Posterior gapping to decrease anterior translation of humeral head. Post and inf glides at various deg of abduction to decrease impingement symptoms at end range, improve humeral glide PT-OP-R Modalities Start: 09/26/23 16:19 Freq: Status: Active Protocol: Document 11/04/23 07:33 SP (Rec: 11/04/23 08:18 SP [id number]) Ultrasound Therapy Treatment R bicep Patient Position Supine Coupling Medium Ultrasound Gel Applicator Size (cm2) 2cm Intensity Setting (w/cm2) 8 Comments less pain prox at coricoid process 10 min PT-OP-T Assessment and Plan Start: 09/26/23 16:19 Freq: Status: Active Protocol: Document 01/10/24 07:31 NM (Rec: 01/10/24 08:35 NM [id number]) Physical Therapy Assessment Goals Five Impairment activity Short Term Goal (STG) Pt will report at least 30% return to prior level of activity in order to demonstrate improved QOL, activity tolerance, and pain management 10/31/23: 50% reported back to PLOF 11/11/23: not performing aggravating activities, reports 50% with back to PLOF STG Duration 4 weeks MET Cartridge Belt Puncher Goal (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 12/27/23: pt reports that he is doing most things but not everthing states 70% 01/10/24: reports 75% LTG Duration 8 weeks MET Three Impairment periscapular strength Impairment grossly 4/5 Cartridge Belt Puncher Goal (LTG) Pt will improve periscapular strength to at least 4+/5 without compensation in order to demonstrate increased scapular control during arm elevation 10/31/23: 4+/5 for elevation, add, depression; 4/5 for abduction 2/10 pain 11/11/23: 4+/5 for all motions except 4/5 abd, 08/21 pain 12/27/23: 4+/5, minimal UT compensation, pain free for most motions, prn pain with abduction 01/10/24: 5/5 for all scapular stablization, pain free LTG Duration 8 weeks MET One Impairment quickdash Impairment quickdash 18% Cartridge Belt Puncher Goal (LTG) Pt will decrease quickdash score by at least 9% in order to demonstrate improved function and QOL 10/31/23: 15.9% 11/11/23: score 16 or 11.3% 12/27/23: 15 or 9% 01/10/24: 16 or 11.3% LTG Duration 8 weeks MET Progress Towards Goals Progress Towards Goals Goals Met Progress Comments all goals met Assessment Summary Assessment Pt tolerated session well and continues to respond well to therapeutic exercise and manual treatment. Pt presented with slight pinching at end range (full ROM), responded well to inferior and posterior glenohumeral mobilization. Educated on self inferior glide to use as needed upon discharge to reduce impingement symptoms if return . Session emphasis on establishing 1 page HEP for pt to use an maintenance program with periscapular and rotator cuff strengthening. Pt performed with good form, pain free. Continued with thoracic mobility and postural elongation, particularly using foam roller for symptom reduction in back and chest soft tissue elongation. Pt and PT discussed discharge today as pt wanting to d/c vs schedule further through remaining plan of care; PT and pt in agreement. Physical Therapy Plan Frequency and Duration Frequency of Treatment 2x/Week Duration of treatment (weeks) 10 Plan of Care Start Date 11/11/23 Plan of Care End Date 01/24/24 Therapeutic Interventions Therapeutic Interventions Aquatic Therapy,Coordination Training,Home Exercise Program ,Joint Mobilizations,Manual Therapy,Neuromuscular Re- education,Orthotic/Prosthetic Management,Patient/Caregiver Education,Self-Care/Home Management,Sensory Integration ,Soft Tissue Mobilization, Taping,Therapeutic Activities, Therapeutic Exercises Modalities Cold Pack/Ice Massage,Electric Stimulation,Hot Packs, Iontophoresis,Traction- Mechanical,Ultrasound, Vasopneumatic Devices Other Referrals/Consults Referrals/Consults Recommended Recommend MRI and referral to ortho depending on pt progression with conservative treatment Discharge Physical Therapy Discharge Reasons Goals Met Discharge Comments All goals met and pt requesting d/c vs continue through remaining plan of care Next Visit Focus/Plan Next Visit Plan discharge from PT
== END 2024-01-13 13:56 | disposition home or self-care (01) ==
LOC: PHYS 07:30
PROVIDERS: PCP Family Medicine; Referring Provider Family Medicine; Visit Provider Family Medicine
DX: M25.511 Pain in right shoulder (principal); M25.811 Other specified joint disorders, right shoulder
CPT/HCPCS: 97035; 97110; 97140; 97161

== ENCOUNTER → 2024-11-11 07:06 | Outpatient (CLI) | payer OTHER, SELFPAY ==
[2024-11-11 07:32] LABS: Hematocrit 49.8 % (41-53); Hemoglobin 17.1 g/dL (13.5-17.5); Mean Corpuscular HGB Conc 34.2 % (30-36); Mean Corpuscular Hemoglobin 30.5 PG (26-34); Platelet Count 207 X10^3/uL (150-400); Red Cell Distribution Width 12.7 % (11.6-14.8)
[2024-11-11 07:41] LABS: Hemoglobin A1C% w Est Avg Glu 4.8 % (4.0-6.0)
[2024-11-11 08:03] LABS: Alanine Aminotransferase 30 IU/L (<50); Albumin 4.9 g/dL (3.5-5.0); Albumin Globulin Ratio 2.1 (1.0-2.8); Alkaline Phosphatase 77 U/L (38-126); Aspartate Aminotransferase 39 IU/L (17-59); BUN Creatinine Ratio 18.3 (6-22); Bilirubin Total 0.8 mg/dL (0.2-1.3); Blood Urea Nitrogen 20 mg/dL (9-20); Calcium 9.8 mg/dL (8.4-10.2); Carbon Dioxide 28 mmol/L (22-32); Chloride 103 mmol/L (98-107); Cholesterol 210 mg/dL (140-199); Estimated Glomerular Filt Rate > 60 mL/min (>60); Globulin 2.3 g/dL (1.7-4.1); Glucose 98 mg/dL (70-100); HDL Cholesterol 60 mg/dL (40-60); HEMOLYSIS < 15 (0-50); LDL Cholesterol Calculated 120 mg/dL (<100); Potassium 4.2 mmol/L (3.4-5.1); Sodium 139 mmol/L (137-145); Total Protein 7.2 g/dL (6.3-8.2); Triglycerides 149 mg/dL (35-150)
[2024-11-11 08:32] LABS: Prostate Specific Antigen Scrn 2.82 ng/mL (0.1-4.0)
[2024-11-11 08:49] LABS: HIV 1 & 2 Ab/Ag 4th Gen Combo NEGATIVE (NEGATIVE); Hep C Virus Ab w/Reflex Quant NEGATIVE s/c (NEGATIVE)
== END ==
PROVIDERS: PCP Family Medicine; Referring Provider Family Medicine; Visit Provider Family Medicine
DX: Z13.228 Encounter for screening for other metabolic disorders (principal); Z12.5 Encounter for screening for malignant neoplasm of prostate; Z80.42 Family history of malignant neoplasm of prostate; Z13.1 Encounter for screening for diabetes mellitus; Z13.9 Encounter for screening, unspecified; Z13.220 Encounter for screening for lipoid disorders
CPT/HCPCS: 36415; 80053; 80061; 83036; 85027; 86803; 87389; G0103

== ENCOUNTER 2024-12-14 09:00 | Day surgery (SDC) | payer OTHER, SELFPAY ==
--- NOTE | 2024-12-14 09:08 | PM.OP.COLON ---
Operative Date/Time/Diagnoses Date of procedure: 12/14/24 Time of procedure: 10:12 Pre-op diagnosis: See indication and findings Post-op diagnosis: same Procedure & Clinicians Study performed: Colonoscopy Same procedure as scheduled: Yes Indications: History of colon polyps Surgeon: Preston Allison Procedure Notes Procedure in detail: After informed consent was obtained the patient was placed in left lateral decubitus position. The video colonoscope was introduced the rectum slowly advanced cecum. Preparation was good. On slow withdrawal mucosa was carefully examined. The scope was removed. The patient tolerated the procedure well. Blood loss none Complications none Sedation mac Findings 1. Normal colonoscopy to cecum Patient should have follow-up colonoscopy in 10 years
[2024-12-14] MEDS: LACTATED RINGERS 1,000 ML 42 ML IV (09:14)
[2024-12-14 09:16] VITALS: BP 142/88; PULSE 66; RESP 16; TEMP 36.2; O2SAT 100
--- NOTE | 2024-12-14 09:31 | P.HP_ITS ---
History of Present Illness History of Present Illness Date Patient Seen: 12/14/24 Chief complaint: [facility] Medical History (Updated 11/13/24 @ 20:09 by Thuy Weiner) Allergies Shoulder pain (~2002) Chicken pox Family history of prostate cancer in father Seasonal allergic rhinitis Asthma (08/30/05) Chronic sinusitis (12/21/04) Wrist fracture Open fracture of phalanx of left index finger No significant medical problems Surgical History (Updated 11/13/24 @ 20:09 by Thuy Weiner) Anesthesia History of thumb surgery History of ankle surgery History of knee surgery S/P right rotator cuff repair Left ulnar fracture Family History (Updated 11/13/24 @ 20:11 by Thuy Weiner) Father Prostate cancer Mother Cancer of blood vessel History of heart disease Sister Mental health problem Grandmother Stroke Social History Smoking Status: Never smoker Meds Home Medications and Allergies Home Medications Medication Instructions Recorded Confirmed Type Fluticasone Propionate (FLONASE) 1 spray intranasal QDAY ##0 11/22/11 11/10/24 History [ZYRTEC ] ##0 11/22/11 11/10/24 History albuterol sulfate 90 mcg/actuation 2 puff inhalation Q4-6H PRN 11/10/24 12/14/24 Rx aerosol inhaler shortness of breath or wheezing #6.7 grams inhalat.spacing dev,large mask #1 ea 11/10/24 11/10/24 Rx (Pro Comfort Spacer-Adult Mask) sodium,potassium,mag sulfates 17.5 See Rx Instructions PO .COMPLEX 11/20/24 Rx gram-3.13 gram-1.6 gram oral soln #354 mL (Suprep Bowel Prep Kit) Allergies Allergy/AdvReac Type Severity Reaction Status Date / Time No Known Drug Allergies Allergy Verified 12/14/24 09:14 Exam Vital Signs (past 8 hours): - 12/14/24 09:16 Temperature 97.2 F L Pulse Rate 66 Respiratory Rate 16 Blood Pressure 142/88 H Pulse Oximetry 100 Oxygen Delivery Method Room Air Oxygen Delivery Method Room Air Narrative Exam Narrative: Oropharynx free of lesions Chest clear to auscultation percussion Cardiac exam reveals no S3 or murmur Assessment & Plan Assessment & Plan narrative: For screening colonoscopy in a low risk individual. Risks, benefits, alternatives have been explained. Time-Based Coding :: [TOTAL MINUTES] spent with patient and on the chart (including review of chart, obtaining history, exam, reviewing outside data, placing orders, documenting exam and treatment plan, and counseling patient) on [DATE]. [employer] Document charge(s): No
[2024-12-14 10:07] VITALS: BP 97/66; PULSE 57; RESP 15; TEMP 36.5; O2SAT 98
[2024-12-14 10:12] VITALS: BP 98/55; PULSE 67; RESP 16; O2SAT 99
[2024-12-14 10:22] VITALS: BP 121/73; PULSE 58; RESP 18; O2SAT 98
== END 2024-12-14 10:31 | disposition home or self-care (01) ==
PROVIDERS: PCP Family Medicine; Referring Provider Internal Medicine Gastroenterology; Visit Provider Internal Medicine Gastroenterology
PROC: 0DJD8ZZ Inspection of Lower Intestinal Tract, Via Natural or Artificial Opening Endoscopic (ICD-10-PCS; CPT 45378; principal; 2024-12-14 10:00)
DX: Z12.11 Encounter for screening for malignant neoplasm of colon (principal); Z86.0100 Personal history of colon polyps, unspecified
CPT/HCPCS: 45378; J2704